=== PATIENT | female | born 1960 | race Caucasian/White ===

== ENCOUNTER 2022-12-31 20:26 | Emergency (ER) | payer BC, SELFPAY ==
[2022-12-31 20:27] VITALS: BP 130/79; PULSE 85; RESP 18; TEMP 36.5; O2SAT 99; BMI 18.1
[2022-12-31 20:29] VITALS: BP 115/88; O2SAT 98
[2022-12-31 20:30] VITALS: O2SAT 98
[2022-12-31 20:31] VITALS: BP 130/79; O2SAT 98
--- NOTE | 2022-12-31 20:38 | ED.SEIZURE1 ---
HPI - Seizure General Chief Complaint: Seizure Stated Complaint: Seizure Time Seen by Provider: 12/31/22 20:38 Source: patient Mode of arrival: ambulance Limitations: no limitations History of Present Illness HPI Narrative: patient reportedly had seizure tonight. Per Squad she had 2-3 episodes of seizure like activity that resolved without post ictal state. No history of seizure. Patient states she is able to recall making soup and sitting at the table. Describes feeling warm and getting up to go to the door and waking up on the ground. No known history and no complaint of pain. States she has polycystic kidney disease and is in renal failure. she has no complaint of pain or headache MD complaint: Reports possible seizure Related Data Home Medications Medication Instructions Recorded Confirmed No Known Home Medications 12/31/22 12/31/22 Allergies Allergy/AdvReac Type Severity Reaction Status Date / Time No Known Drug Allergies Allergy Verified 12/31/22 20:33 Review of Systems ROS Status of ROS 10 or more systems reviewed and unremarkable except as noted in history and below Exam Constitutional Vital Signs, click to edit/add: Last Vital Signs Temp 97.7 F 12/31/22 20:27 Pulse 85 12/31/22 20:27 Resp 18 12/31/22 20:27 BP 111/81 12/31/22 21:00 Pulse Ox 99 12/31/22 21:31 O2 Del Method Room Air 12/31/22 20:27 Common normals: no apparent distress, average body habitus, oriented x3, no limitations and healthy appearing HENMT Common normals: normocephalic and head/scalp atraumatic Eye Common normals: PERRL, EOMs intact bilaterally and conjunctivae normal Respiratory Common normals: normal respiratory effort, no retractions, no use of accessory muscles and clear to auscultation bilaterally Effort & inspection: able to speak in complete sentences and symmetric chest movement Cardio Common normals: regular rate, regular rhythm, S1 normal heart sound and S2 normal heart sound GI Common normals: Normal to inspection, nondistended, normoactive bowel sounds present and soft to palpation Other: palpable mass LLQ(patient states it is her polycystic kidney) Back & Pelvis Common normals: no CVA tenderness, thoracic and lumbar spine normal to inspection, no thoracic nor lumbar tenderness and thoraco-lumbar ROM normal Extremity Common normals: normal to inspection, full ROM and normal capillary refill Neuro Common normals: oriented x3, CN's II-XII intact bilaterally, moves all extremities, no focal motor deficits and no sensory deficits noted Psych Appearance: grossly normal Course Vital Signs Vital signs: Vital Signs Temperature 97.7 F 12/31/22 20:27 Pulse Rate 85 12/31/22 20:27 Respiratory Rate 18 12/31/22 20:27 Blood Pressure 130/79 12/31/22 20:27 Pulse Oximetry 99 12/31/22 20:27 Oxygen Delivery Method Room Air 12/31/22 20:27 Temperature 97.7 F 12/31/22 20:27 Pulse Rate 85 12/31/22 20:27 Respiratory Rate 18 12/31/22 20:27 Blood Pressure 111/81 12/31/22 21:00 Pulse Oximetry 99 12/31/22 21:31 Oxygen Delivery Method Room Air 12/31/22 20:27 MDM - Seizure MDM Narrative Medical decision making narrative: patient with several short lasting seizures at home. Her friend came to the ED later and was a witness. States the patient was not hurt when she went to the floor because they lowered her to the floor. she did have short lasting tonic clonic activity and was also incontinent of urine. At least 3 separate episodes of short lasting seizure. workup demonstrates renal failure of which the patient is aware and she is also hypocalcemic. Discussed with Neurology at [facility] Dr Kidd and he recommended hospitalization for her seizures given her severe systemic illness. Discussed hospitalization with the patient and her friend and the fact the patient cannot operate a motor vehicle after the seizures. She is adamant she does not want to be hospitalized and signed out AMA Lab Data Labs: Lab Results 12/31/22 12/31/22 Range/Units 20:45 22:54 WBC 8.6 (4.0-11.0) 10^3/uL RBC 3.90 L (4.20-5.40) 10^6/uL Hgb 11.9 L (12.0-16.0) g/dL Hct 35.2 L (36.0-48.0) % MCV 90.3 (81.0-99.0) fL MCH 30.5 (26.7-34.0) pg MCHC 33.8 (29.9-35.2) g/dL RDW 12.0 (11.0-15.0) % Plt Count 294 (150-450) 10^3/uL MPV 10.5 (9.5-13.5) fL Neut % (Auto) 66.0 (43.0-75.0) % Lymph % (Auto) 21.8 (20.5-60.0) % [place] % (Auto) 8.9 (1.7-12.0) % Eos % (Auto) 2.1 (0.9-7.0) % Baso % (Auto) 0.7 (0.2-2.0) % Neut # (Auto) 5.7 (1.4-6.5) 10^3/uL Lymph # (Auto) 1.9 (1.2-3.8) 10^3/uL [place] # (Auto) 0.8 (0.3-0.8) 10^3/uL Eos # (Auto) 0.2 (0.0-0.7) 10^3/uL Baso # (Auto) 0.1 (0.0-0.1) 10^3/uL Abs Immat Gran (auto) 0.04 H (0.00-0.03) 10^3/uL Imm/Tot Granulo (auto) 0.5 (0.0-0.5) % Sodium 136 (136-145) mmol/L Potassium 3.5 (3.5-5.1) mmol/L Chloride 90 L (98-107) mmol/L Carbon Dioxide 28.4 (21.0-32.0) mmol/L Anion Gap 21.1 BUN 150.0 H* (7.0-18.0) mg/dL Creatinine 6.97 H* (0.55-1.02) mg/dL Est GFR ( Amer) 7 L (>=60) Est GFR (Non-Af Amer) 6 L (>=60) BUN/Creatinine Ratio 21.5 Glucose 128 H (74-106) mg/dL Calcium 6.7 L (8.5-10.1) mg/dL Total Bilirubin 0.3 (0.2-1.0) mg/dL Direct Bilirubin 0.1 (0.0-0.2) mg/dL AST 12 L (15-37) U/L ALT 26 (14-59) U/L Alkaline Phosphatase 104 (46-116) U/L Troponin I High Sens 9.4 (4.0-51.3) pg/mL Total Protein 7.7 (6.4-8.2) g/dL Albumin 3.9 (3.4-5.0) g/dL Globulin 3.8 g/dL Albumin/Globulin Ratio 1.0 Urine Color Yellow (YELLOW) Urine Clarity Clear (CLEAR) Urine pH 6.5 (5.0-9.0) Ur Specific [place] 1.020 (1.005-1.025) Urine Protein 100 A (NEG/TRACE) mg/dL Urine Glucose (UA) Negative (NEGATIVE) mg/dL Urine Ketones Negative (NEGATIVE) mg/dL Urine Occult Blood Large A (NEGATIVE) Urine Nitrite Negative (NEGATIVE) Urine Bilirubin Negative (NEGATIVE) Urine Urobilinogen 0.2 (0.2-1.0) EU/dL Ur Leukocyte Esterase Large A (NEGATIVE) Urine RBC 2-5 A (0-2) #/HPF Urine WBC 10-20 A (NONE SEEN) #/HPF Ur Squamous Epith Cells Moderate A (NONE/RARE) #/LPF Urine Crystals None seen (None Seen) #/HPF Urine Bacteria Small A (NONE SEEN) #/HPF Urine Casts Seen A (NONE SEEN) #/LPF Hyaline Casts Rare Urine Mucus None seen (NONE SEEN) Discharge Plan Discharge Chief Complaint: Seizure Clinical Impression: Renal failure, New onset seizure Patient Disposition: Left Against Medical Advice Prescriptions / Home Meds: No Action No Known Home Medications Stand Alone Forms: Portal Instructions Referrals: Physician,Non-Staff, MD [Primary Care Provider] - 1 week
--- NOTE | 2022-12-31 20:43 | XR_ITS ---
The [place] [id number] Patient Name: JULY RUSSELL MRN: [id number] date: 1960 Sex: F Assigned Patient Location: ER Current Patient Location: ER Accession/Order Number: [id number] Exam Date: 12/31/2022 21:22 Report Date: 12/31/2022 21:53 At the request of: GALEN MORALES Procedure: XR chest 1V EXAM: XR chest 1V TECHNIQUE: Single AP view chest HISTORY: seizure COMPARISON: None. FINDINGS: The heart and mediastinum are unremarkable. The lung moeller are clear of any acute infiltrate, effusion or mass. No acute bony abnormality. XR/XR chest 1V IMPRESSION: No acute pulmonary disease. Electronically authenticated by: ARTURO PENA Date: 12/31/2022 21:53
--- NOTE | 2022-12-31 20:43 | ECG_ITS ---
The [facility] Test Date: 2022-12-31 Pat Name: JULY RUSSELL Department: Room: - Gender: Female Inspector Receiving: : 1960 Requested By: [id number] Order Number: [id number] Reading MD: JOSELO BARRY Measurements Intervals [place] Rate: 82 P: 71 LA: 154 QRS: 43 QRSD: 80 T: 53 QT: 398 QTc: 437 Interpretive Statements 1100 Sinus rhythm 4068 Nonspecific [place] abnormality 9130 borderline ECG No previous ECG available for comparison Electronically Signed On 01-01-2023 6:57:27 EST by JOSELO BARRY
--- NOTE | 2022-12-31 20:43 | CT_ITS ---
The [address] [address] Patient Name: JULY RUSSELL MRN: [id number] date: 1960 Sex: F Assigned Patient Location: ER Current Patient Location: [facility] Accession/Order Number: [id number] Exam Date: 12/31/2022 21:22 Report Date: 12/31/2022 22:00 At the request of: GALEN MORALES Procedure: CT head/brain wo con EXAMINATION: CT head/brain wo con HISTORY: seizure - TECHNIQUE: CT head without contrast. All CT scans at this facility use dose modulation, iterative reconstruction, and/or weight based dosing when appropriate to reduce radiation dose to as low as reasonably achievable. COMPARISON: None. RESULT: Post-operative change: None. Acute change: No evidence of an acute intracranial process. Hemorrhage: No evidence of acute intracranial hemorrhage. Mass Lesion / Mass Effect: No evidence of an intracranial mass or extraaxial fluid collection. No significant mass effect. Chronic change: Scattered patchy foci of low attenuation are present within supratentorial white matter which is a nonspecific finding but likely represents mild microvascular ischemia. Atherosclerotic calcification of the carotid siphons and vertebrobasilar arteries. Parenchyma: No significant parenchymal volume loss. Ventricles: Normal caliber and morphology. Other: The calvarium, skull base, imaged paranasal sinuses, mastoids, orbits and extracranial soft tissues are unremarkable. CT/CT head/brain wo con IMPRESSION: 1. No acute intracranial abnormality; no acute infarct, intracranial hemorrhage or extra-axial collection. 2. Chronic microvascular ischemic changes. Electronically authenticated by: ROCCO HODGES Date: 12/31/2022 22:00
[2022-12-31 21:00] VITALS: BP 111/81; O2SAT 99
[2022-12-31 21:08] LABS: Basophils Absolute Auto 0.1 10^3/uL (0.0-0.1); Basophils Percent Auto 0.7 % (0.2-2.0); Eosinophils Absolute Auto 0.2 10^3/uL (0.0-0.7); Eosinophils Percent Auto 2.1 % (0.9-7.0); Hematocrit 35.2 % (36.0-48.0); Hemoglobin 11.9 g/dL (12.0-16.0); Immature Granulocytes Abs Auto 0.04 10^3/uL (0.00-0.03); Immature Granulocytes Pct Auto 0.5 % (0.0-0.5); Lymphocytes Absolute Auto 1.9 10^3/uL (1.2-3.8); Lymphocytes Percent Auto 21.8 % (20.5-60.0); Mean Corpuscular HGB Conc 33.8 g/dL (29.9-35.2); Mean Corpuscular Hemoglobin 30.5 pg (26.7-34.0); Mean Corpuscular Volume 90.3 fL (81.0-99.0); Mean Platelet Volume 10.5 fL (9.5-13.5); Monocytes Absolute Auto 0.8 10^3/uL (0.3-0.8); Monocytes Percent Auto 8.9 % (1.7-12.0); Neutrophils Absolute Auto 5.7 10^3/uL (1.4-6.5); Platelet Count 294 10^3/uL (150-450); White Blood Count 8.6 10^3/uL (4.0-11.0)
[2022-12-31 21:31] VITALS: O2SAT 99
[2022-12-31 21:55] LABS: Anion Gap 21.1; BUN Creatinine Ratio 21.5; Calcium 6.7 mg/dL (8.5-10.1); Carbon Dioxide 28.4 mmol/L (21.0-32.0); Chloride 90 mmol/L (98-107); Estimated GFR (African America 7 (>=60); Estimated GFR (Non-African Ame 6 (>=60); Glucose 128 mg/dL (74-106); Potassium 3.5 mmol/L (3.5-5.1); Sodium 136 mmol/L (136-145); Troponin I High Sensitivity 9.4 pg/mL (4.0-51.3)
[2022-12-31 23:00] LABS: Alanine Aminotransferase 26 U/L (14-59); Albumin Level 3.9 g/dL (3.4-5.0); Alkaline Phosphatase 104 U/L (46-116); Aspartate Amino Transferase 12 U/L (15-37); Bilirubin Direct 0.1 mg/dL (0.0-0.2); Bilirubin Total 0.3 mg/dL (0.2-1.0); Globulin 3.8 g/dL; Total Protein 7.7 g/dL (6.4-8.2)
[2022-12-31 23:14] LABS: Bilirubin Urine NEGATIVE (NEGATIVE); Blood Urine LARGE (NEGATIVE); Clarity Urine CLEAR (CLEAR); Color Urine YELLOW (YELLOW); Glucose Urine UA NEGATIVE (NEGATIVE); Ketones Urine NEGATIVE (NEGATIVE); Leukocyte Esterase Urine LARGE (NEGATIVE); Nitrite Urine NEGATIVE (NEGATIVE); Protein Urine 100 mg/dL (NEG/TRACE); Urobilinogen Urine 0.2 EU/dL (0.2-1.0); pH Urine 6.5 (5.0-9.0)
[2022-12-31 23:28] LABS: Bacteria Urine SMALL #/HPF (NONE SEEN); Crystals Seen? None Seen #/HPF (None Seen); Mucus Urine NONE SEEN (NONE SEEN); Squamous Epithelial Cell Urine MODERATE #/LPF (NONE/RARE)
[2022-12-31 23:29] LABS: Cast Seen? SEEN #/LPF (NONE SEEN); Hyaline Casts Urine RARE
== END 2023-01-01 00:09 | disposition left against medical advice (07) ==
PROVIDERS: Emergency Provider Internal Medicine
DX: N19 Unspecified kidney failure (principal); R56.9 Unspecified convulsions; Z53.29 Procedure and treatment not carried out because of patient's decision for other reasons; Q61.3 Polycystic kidney, unspecified
CPT/HCPCS: 36415; 70450; 71045; 80048; 80076; 81001; 84484; 85025; 93005; 99285

== ENCOUNTER 2023-03-28 13:24 | Outpatient (REF) | payer BC, SELFPAY ==
--- OUTSIDE RECORDS SUMMARY | 2023-03-28 13:41 | XMS_ITS | CCD ---
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 Name Role Phone DAKOTA, DR DRAKE Admitting Unavailable HOUSE, DR DRAKE Attending Unavailable SEVEN SMITH Primary Care Unavailable HOUSE, DR DRAKE Consulting Unavailable Unavailable Primary Care Provider Unavailabl e DO Delvis Duncan Primary Care Provider MD Gisselle Kaur Emergency Provider [facility] Tremayne Calderon Admit Provider [phone] MD Jai Banuelos Attending Provider [phone] MD Genet Arambula Other Provider MD Tavo Bundy Other Provider MD Keaton Carrasco Other Provider [phone] MD Seven Smith Attending Provider MD Seven Smith Referring Provider PROVIDER, UNKNOWN Attending Unavailable PROVIDER, UNKNOWN Admitting Unavailable DELVIS DUNCAN Primary Care Unavailable Donal Avendaño MD Attending Unavailable Donal Avendaño MD Attending Unavailable HOUSE, DELVIS Varela Primary Care Unavailable Donal Avendaño MD Attending Unavailable DAKOTA, DELVIS Varela Primary Care Unavailable HOUSE, DELVIS Varela Primary Care Unavailable DAKOTA, DELVIS Varela Admitting Unavailable DAKOTA, DELVIS Varela Attending Unavailable Jonny Ashton Admitting Unavailable Jonny Ashton Attending Unavailable DAKOTA, DELVIS Varela Primary Care Unavailable MD Tavo Bundy Attending Provider [phone] Delvis Duncan Primary Care Unavailable Seven Smith Admitting Unavailable Seven Smith Attending Unavailable Delvis Duncan Primary Care Unavailable Bakhous, Aziz Admitting Unavailable Bakhous, Aziz Attending Unavailable [facility] Unavailable Jai Banuelos Attending Unavailable Tremayne Allison Admitting Unavailable Keaton Carrasco Consulting Unavailabl e Asaad, Imad Consulting Unavailable Bakhous, Aziz Consulting Unavailable Suzan, Seven Referring Unavailable [facility] Unavailable Suzan, Sveen Admitting Unavailable Suzan, Seven Attending Unavailable [facility] Unavailable Suzan, Seven Admitting Unavailable Suzan, Seven Attending Unavailable Allergies Allergy Classification Reported Allergen(s) Allergy Type Date of Onset Reaction(s) Facility (1 source) Ramipril Drug Allergy 11-14-2014 [facility] Repository (4 sources) Angiotensin Converting Enzyme (Patric) Inhibitors; Translations: [PATRIC Inhibitors] Allergy to substance 01-13-2023 [facility] Medications Current Medications Medication Drug Class(es) Dates Sig (Normalized) Sig (Original) 24 hr nicotine 0.875 mg/hr transdermal system (3 sources) Cholinergic Nicotinic Agonist Start: 01-16-2023 apply 1 dose transdermal route once daily Nicotine Active 1 PATCH TRANSDERML Daily January 16, 2023 12:00am Problems Problem Classification Problem Date Documented Da te Episodic/Chronic Acute and unspecified renal failure (6 sources) Acute renal failure syndrome; Translations: [Acute kidney failure, unspecified] Onset: 01-13-2023 01-13-2023 Episodic Chronic kidney disease (7 sources) End-stage renal disease; Translations: [End stage renal disease] Onset: 01-13-2023 01-14-2023 Chronic Epilepsy; convulsions (1 source) Recurrent seizure; Translations: [Epilepsy, unspecified, not intractable, without status epilepticus] 01-02-2023 Chronic Essential hypertension (6 sources) Hypertensive disorder; Translations: [Essential (primary) hypertension] Onset: 01-13-2023 01-14-2023 Chronic Genitourinary congenital anomalies (6 sources) Multiple renal cysts; Translations: [Polycystic kidney, unspecified] Onset: 01-13-2023 01-14-2023 Chronic Nausea and vomiting (12 sources) Adverse reaction to cannabis; Translations: [Nausea with vomiting, unspecified] Onset: 01-13-2023 01-15-2023 Episodic Other disorders of stomach and duodenum (4 sources) Cyclical vomiting syndrome; Translations: [Cyclical vomiting syndrome unrelated to migraine] 01-13-2023 Episodic Other disorders of stomach and duodenum (1 source) Cyclical vomiting syndrome unrelated to migraine; Translations: [Persistent vomiting] 01-13-2023 Episodic Other gastrointestinal disorders (1 source) Abdominal distension (gaseous); Translations: [Abdominal distension (gaseous)] Onset: 02-28-2023 Episodic Other non-traumatic joint disorders (4 sources) Other specified arthritis, unspecified site; Translations: [OTHER SPECIFIED ARTHRITIS UNS SITE] Onset: 03-28-2022 Chronic Substance-related disorders (1 source) Cannabis use, unspecified, uncomplicated; Translations: [Cannabis use, unspecified, uncomplicated] Onset: 01-13-2023 Episodic Unclassified (1 source) Encounter for other preprocedural examination; Translations: [Encounter for other preprocedural examination] Onset: 03-06-2023 Unclassified (1 source) Cyclical vomiting syndrome unrelated to migraine; Translations: [Cyclical vomiting syndrome unrelated to migraine] Onset: 01-13-2023 Urinary tract infections (6 sources) Urinary tract infectious disease; Translations: [Urinary tract infection, site not specified] Onset: 01-13-2023 01-13-2023 Episodic Results Test Name Value Interpretation Reference Range Facility US map hemodial access BILon 03-06-2023 map hemodial access [facility] [address] Ultrasound Report Signed Patient: Ros Russell MR#: [id number] 6 : 1960 Acct:[id number] Age/Sex: 62 / F ADM Date: 03/06/23 Loc: Room: Type: [facility] Attending Dr: Tavo Bundy MD Ordering Provider: Tavo Bundy MD Date of Service: 03/06/23 US/US map hemodial access VINICIUS: N18.4 Copies to: Tavo Bundy MD Bilateral upper extremity vein mapping examination Indication for study: Renal failure with need for dialysis access PROCEDURE: B-mode imaging is used to interrogate the venous and arterial anatomy of both upper extremities. In the patient's right arm the forearm basilic vein is fairly good at just under 3 mm and continues as a good quality vessel into the upper arm at 4 to 6 mm in diameter. The right forearm cephalic vein is also excellent at just under 4 mm. Antecubital vein is 5 mm and the cephalic vein continues to be a good size at 4 mm or greater into the upper arm. Axillary and subclavian veins are found be patent. The brachial artery is just under 5 mm and the radial artery is just under 2 mm. In the patient's left upper extremity the form basilic vein is smaller and the upper arm basilic vein is just under 3 mm. The left forearm cephalic vein is also 2 mm or less and the vein is just under 3 mm throughout the upper arm. There is a left-sided dialysis catheter in place. The left brachial artery is 3 mm and the left radial artery is 2 mm. US/US map hemodial access VINICIUS IMPRESSION: Right arm has favorable anatomy for creation of a Amberly fistula or an antecubital fistula. Left arm is less favorable. Impression dictated by: Erick Spicer M.D.03/06/2023 3:49 PM Dictation Location: [facility] Tech: Vanerosita Luu Transcribed By: TAE 03/06/23 1549 Dictated By: Erick Spicer MD 03/06/23 1547 Signed By: 03/06/23 1549 [facility] 02-28-2023 [facility] [place] [address] Ultrasound Report Signed Patient: Ros Russell MR#: [id number] 6 : 1960 Acct:[id number] Age/Sex: 62 / F ADM Date: 02/28/23 Loc: Room: Type: [facility] Attending Dr: Seven Smith MD Ordering Provider: Seven Smith MD Date of Service: 02/28/23 US/US liver: ABD. DISTENSION Copies to: Seven Smith MD LIMITED ABDOMINAL ULTRASOUND: CLINICAL HISTORY: Abdominal distention. Polycystic kidney disease. Evaluate for ascites. COMPARISON: None TECHNIQUE: Grayscale and color Doppler images of the right upper quadrant organs were obtained. FINDINGS: Pancreas: Not visualized. Liver: Cysts are noted within the liver consistent with the history. No solid mass or intrahepatic ductal dilatation. Hepatopedal flow seen within the portal vein. Gallbladder: Gallbladder appears contracted with mild wall thickening. Negative Saldaña's sign. Adenomyomatosis. CBD: Dilated measuring 15 mm. Visualized portions of the right kidney demonstrates cystic replacement consistent with the history. US/US liver IMPRESSION: EVIDENCE OF POLYCYSTIC KIDNEY AND LIVER DISEASE. GALLBLADDER APPEARS CONTRACTED WITH ADENOMYOMATOSIS. NO STONES ARE SEEN. CBD IS DILATED. IF BILIARY OBSTRUCTION IS OF CLINICAL CONCERN, FURTHER EVALUATION WITH MRI/MRCP WITHOUT IV CONTRAST IS RECOMMENDED.. Impression dictated by: Anthony Stanton Jr., D.OJackie02/28/2023 2:21 PM Dictation Location: [place] [address] Tech: Shyanne Houser Transcribed By: TAE 02/28/23 1421 Dictated By: Anthony Stanton Jr, DO 02/28/23 1418 Signed By: 02/28/23 1421 [facility] Miscellaneouson 02-19-2023 Miscellaneous [id number] [address] [facility] 02-06-2023 Miscellaneous [id number] 27[facility]ation/Specialist Note on 01-23-2023 Consultation/Specialist Note [id number] 5#[facility] Outside Recordson 01-21-2023 Outside Records [id number] 9[facility] Outside Recordson 01-20-2023 Outside Records [id number] 21#[facility] Basic Metabolic Panelon 11-3 Anion gap [Moles/Vol] 17.2 mmol/L High 6.0-15.0 [facility] Comment on above: Performed By: #### B MP ####[facility] [place] [address] [facility] Calcium [Mass/Vol] 9.2 mg/dL Normal 8.6-10.3 [facility] Comment on above: Performed By: #### B MP ####[place] [address] [place] [address] [facility] Chloride [Moles/Vol] 98 mmol/L Normal 98-107 [facility] Comment on above: Performed By: #### B MP ####[place] [address] [place] [id number] [facility] CO2 [Moles/Vol] 25.8 mmol/L Normal 21.0-31.0 [facility] Comment on above: Performed By: #### B MP ####[place] [address] [place] [id number] [facility] Creatinine [Mass/Vol] 4.49 mg/dL Significan t change up 0.60-1.20 [facility] Comment on above: Performed By: #### B MP ####[place] [address] [place] [id number] [facility] Creatinine Clr Calc Pharmacy 8.86 Normal [facility] Comment on above: Result Comment: PERF ORMED BY: [facility] [address] [place] [id number] PATHOLOGIST HEALTH AND WELLNESS ADVISOR JONELLE DAVIS M.D. Performed By: #### B MP ####[place] [address] [place] [id number] [facility] GFR/1.73 sq M.predicted MDRD (S/P/Bld) [Vol rate/Area] 10.505 mL/min/{1.73_m2} Normal [facility] Comment on above: Performed By: #### B MP ####[place] [id number] [facility] Glucose [Mass/Vol] 93 mg/dL Normal 70-100 [facility] Comment on above: Result Comment: [place] Glucose Reference Range is dependent on time and content of last meal. Glucose of more than 200 mg/dL in a nonstressed, ambulatory subject supports the diagnosis of Diabetes Mellitus. ADA recommended reference range Performed By: #### B MP ####[facility] [id number] [place] [address] [facility] Potassium [Moles/Vol] 4.0 mmol/L Normal 3.5-5.1 [facility] Comment on above: Performed By: #### B MP ####[facility] [place] [address] [facility] Sodium [Moles/Vol] 137 mmol/L Normal 136-145 [facility] Comment on above: Performed By: #### B MP ####[facility] [place] [address] [facility] Urea nitrogen [Mass/Vol] 55 mg/dL Significant change up 09-10 [facility] Comment on above: Performed By: #### B MP ####[facility] [place] [id number] [facility] Calcium [Mass/volume] in Ser um or PlasmaOrdered By: Tremayne Allison on 01-16-2023 Calcium [Mass/Vol] 9.2 mg/dL 8.6-10.3 [facility] Carbon dioxide, total [Moles /volume] in Serum or PlasmaOrdered By: Tremayne Allison on 01-16-2023 CO2 [Moles/Vol] 25.8 mmol/L 21.0-31.0 [facility] Chloride [Moles/volume] in S martin or PlasmaOrdered By: Tremayne Allison on 01-16-2023 Chloride [Moles/Vol] 98 mmol/L 98-107 [facility] Creatinine [Mass/volume] in Serum or PlasmaOrdered By: Tremayne Allison on 01-16-2023 Creatinine [Mass/Vol] 4.49 mg/dL 0.60-1.20 [facility] Comment on above: Delta: 5.08 on 01/15 Glucose [Mass/volume] in Ser um or PlasmaOrdered By: Tremayne Allison on 01-16-2023 Glucose [Mass/Vol] 93 mg/dL 70-100 [facility] Comment on above: ADA recommended refe rence rangeRandom Glucose Reference Range is dependent on time and content of last meal. Glucose of more than 200 mg/dL in a nonstressed, ambulatory subject supports the diagnosis of Diabetes Mellitus. No Panel InformationOrdered By: [facility] on 01-16-2023 Estimated GFR (CKD-EPI) 10.505 mL/Min [facility] Creatinine Clearance (Chem 8.86 [facility] Potassium [Moles/volume] in Serum or PlasmaOrdered By: [facility] on 01-16-2023 Potassium [Moles/Vol] 4.0 mmol/L 3.5-5.1 [facility] Serum or plasma anion gap de terminationOrdered By: [facility] on 01-16-2023 Anion gap [Moles/Vol] 17.2 mmol/L 6.0-15.0 [facility] Sodium [Moles/volume] in Ser um or PlasmaOrdered By: [facility] on 01-16-2023 Sodium [Moles/Vol] 137 mmol/L 136-145 [facility] Urea nitrogen [Mass/volume] in Serum or PlasmaOrdered By: [facility] on 01-16-2023 Urea nitrogen [Mass/Vol] 55 mg/dL - [facility] Comment on above: Delta: 103 on Basic Metabolic Panelon 12-19 Anion gap [Moles/Vol] 18.6 mmol/L High 6.0-15.0 [facility] Comment on above: Performed By: #### B MP #### [facility] [address] Calcium [Mass/Vol] 7.9 mg/dL Low 8.6-10.3 [facility] Comment on above: Performed By: #### B MP #### [facility] [address] [place] [id number] [place] Chloride [Moles/Vol] 98 mmol/L Normal 98-107 [facility] Comment on above: Performed By: #### B MP #### [facility] [address] [place] [address] [place] CO2 [Moles/Vol] 25.2 mmol/L Normal 21.0-31.0 [facility] Comment on above: Performed By: #### B MP #### [facility] [address] Creatinine [Mass/Vol] 5.08 mg/dL Significan t change up 0.60-1.20 [facility] Comment on above: Performed By: #### B MP #### [place] [address] [place] Creatinine Clr Calc Pharmacy 8.25 Normal [facility] Comment on above: Result Comment: PERF ORMED BY: [place] [address] PATHOLOGIST HEALTH AND WELLNESS ADVISOR JONELLE DAVIS M.D. Performed By: #### B MP #### [address] GFR/1.73 sq M.predicted MDRD (S/P/Bld) [Vol rate/Area] 9.059 mL/min/{1.73_m2} [facility] Comment on above: Performed By: #### B MP #### [address] Glucose [Mass/Vol] 92 mg/dL Normal 70-100 [facility] Comment on above: Result Comment: [place] Glucose Reference Range is dependent on time and content of last meal. Glucose of more than 200 mg/dL in a nonstressed, ambulatory subject supports the diagnosis of Diabetes Mellitus. ADA recommended reference range Performed By: #### B MP #### [address] Potassium [Moles/Vol] 3.8 mmol/L Normal 3.5-5.1 [facility] Comment on above: Performed By: #### B MP #### [address] Sodium [Moles/Vol] 138 mmol/L Normal 136-145 [facility] Comment on above: Performed By: #### B MP #### [place] [address] [place] Urea nitrogen [Mass/Vol] 103 mg/dL Significant change up 09-10 [facility] Comment on above: Performed By: #### B MP #### [facility] [address] [place] [id number] [facility] Calcium [Mass/volume] in Ser um or PlasmaOrdered By: Tremayne Allison on 01-15-2023 Calcium [Mass/Vol] 7.9 mg/dL 8.6-10.3 [facility] Carbon dioxide, total [Moles /volume] in Serum or PlasmaOrdered By: Tremayne [place] on 01-15-2023 CO2 [Moles/Vol] 25.2 mmol/L 21.0-31.0 [facility] Chloride [Moles/volume] in S martin or PlasmaOrdered By: Tremayne AriasAllison on 01-15-2023 Chloride [Moles/Vol] 98 mmol/L 98-107 [facility] Creatinine [Mass/volume] in Serum or PlasmaOrdered By: Tremayne AriasAllison on 01-15-2023 Creatinine [Mass/Vol] 5.08 mg/dL 0.60-1.20 [facility] Comment on above: Delta: 6.63 on 01/14 Glucose [Mass/volume] in Ser um or PlasmaOrdered By: Tremayne AriasAllison on 01-15-2023 Glucose [Mass/Vol] 92 mg/dL 70-100 [facility] Comment on above: ADA recommended refe rence rangeRandom Glucose Reference Range is dependent on time and content of last meal. Glucose of more than 200 mg/dL in a nonstressed, ambulatory subject supports the diagnosis of Diabetes Mellitus. No Panel InformationOrdered By: Tremayne AriasAllison on 01-15-2023 Estimated GFR (CKD-EPI) 9.059 mL/Min [facility] Creatinine Clearance (Chem 8.25 [facility] Potassium [Moles/volume] in Serum or PlasmaOrdered By: Tremayne Allison on 01-15-2023 Potassium [Moles/Vol] 3.8 mmol/L 3.5-5.1 [facility] Serum or plasma anion gap de terminationOrdered By: Tremayne AriasAllison on 01-15-2023 Anion gap [Moles/Vol] 18.6 mmol/L 6.0-15.0 [facility] Sodium [Moles/volume] in Ser um or PlasmaOrdered By: Tremayne Allison on 01-15-2023 Sodium [Moles/Vol] 138 mmol/L 136-145 [facility] Urea nitrogen [Mass/volume] in Serum or PlasmaOrdered By: Tremayne Allison on 01-15-2023 Urea nitrogen [Mass/Vol] 103 mg/dL 7-25 [facility] Comment on above: Delta: 174 on Basic Metabolic Panelon 12-19 Anion gap [Moles/Vol] 21.3 mmol/L High 6.0-15.0 [facility] Comment on above: Performed By: #### B MP, CBC, MG ####[facility] [id number] [place] [id number] [facility] Calcium [Mass/Vol] 6.7 mg/dL Low 8.6-10.3 [facility] Comment on above: Performed By: #### B MP, CBC, MG ####[facility] [address] [place] [address] [facility] Chloride [Moles/Vol] 94 mmol/L Low 98-107 [facility] Comment on above: Performed By: #### B MP, CBC, MG ####[facility] [address] [place] [address] [facility] CO2 [Moles/Vol] 22.3 mmol/L Normal 21.0-31.0 [facility] Comment on above: Performed By: #### B MP, CBC, MG ####[facility] [id number] [place] [address] [place] Creatinine [Mass/Vol] 6.63 mg/dL Significan t change up 0.60-1.20 [facility] Comment on above: Performed By: #### B MP, CBC, MG ####[facility] [address] [place] [address] [place] Creatinine Clr Calc Pharmacy 6.32 Normal [facility] Comment on above: Performed By: #### B MP, CBC, MG ####[facility] [id number] [place] [address] [facility] GFR/1.73 sq M.predicted MDRD (S/P/Bld) [Vol rate/Area] 6.581 mL/min/{1.73_m2} Normal [facility] Comment on above: Performed By: #### B MP, CBC, MG ####[place] [address] [place] [id number] [facility] Glucose [Mass/Vol] 80 mg/dL Normal 70-100 [facility] Comment on above: Result Comment: [facility] Glucose Reference Range is dependent on time and content of last meal. Glucose of more than 200 mg/dL in a nonstressed, ambulatory subject supports the diagnosis of Diabetes Mellitus. ADA recommended reference range Performed By: #### B MP, CBC, MG ####[place] [address] [place] [id number] [facility] Potassium [Moles/Vol] 3.6 mmol/L Normal 3.5-5.1 [facility] Comment on above: Performed By: #### B MP, CBC, MG ####[place] [id number] [facility] Sodium [Moles/Vol] 134 mmol/L Low 136-145 [facility] Comment on above: Performed By: #### B MP, CBC, MG ####[place] [address] [place] [id number] [facility] Urea nitrogen [Mass/Vol] 174 mg/dL High 7-25 [facility] Comment on above: Performed By: #### B MP, CBC, MG ####[place] [address] [place] [id number] [place] Basophils Auto (Bld) [#/Vol] Ordered By: Tremayne Allison on 01-14-2023 Basophils (Bld) [#/Vol] 0.1 10*3/uL 0.0-0.2 [facility] Basophils/100 WBC Auto (Bld) Ordered By: Tremayne Allison on 01-14-2023 Basophils/100 WBC (Bld) 0.9 % . F [facility] Complete Blood Count Auto Di ffon 01-14-2023 Basophils (Bld) [#/Vol] 0.1 10*3/uL Normal 0.0-0.2 [facility] Comment on above: Result Comment: PERF ORMED BY: [facility] [address] [place] [address] PATHOLOGIST HEALTH AND WELLNESS ADVISOR JONELLE DAVIS M.D. Performed By: #### B MP, CBC, MG ####[address] Basophils/100 WBC (Bld) 0.9 % Normal . [facility] Comment on above: Performed By: #### B MP, CBC, MG ####[address] Eosinophils (Bld) [#/Vol] 0.2 10*3/uL Normal 0.0-0.45 [facility] Comment on above: Performed By: #### B MP, CBC, MG ####[address] Eosinophils/100 WBC (Bld) 3.1 % Normal . [facility] Comment on above: Performed By: #### B MP, CBC, MG ####[address] Erythrocyte distribution width (RBC) [Ratio] 12.9 % Normal 11.9-15.3 [facility] Comment on above: Performed By: #### B MP, CBC, MG ####[address] Hematocrit (Bld) [Volume fraction] 33.1 % Low 34.0-46.4 [facility] Comment on above: Performed By: #### B MP, CBC, MG ####[address] Hemoglobin (Bld) [Mass/Vol] 11.4 g/dL Low 11.8-15.4 [facility] Comment on above: Performed By: #### B MP, CBC, MG ####[address] [place] [address] [place] Lymphocytes (Bld) [#/Vol] 1.0 10*3/uL Normal 1.00-4.8 [facility] Comment on above: Performed By: #### B MP, CBC, MG ####[address] Lymphocytes/100 WBC (Bld) 17.4 % Normal . [facility] Comment on above: Performed By: #### B MP, CBC, MG ####[address] MCH (RBC) [Entitic mass] 30.8 pg Normal 24.7-34.3 [facility] Comment on above: Performed By: #### B MP, CBC, MG ####[address] MCV (RBC) [Entitic vol] 89.0 fL Normal 80-100 [facility] Comment on above: Performed By: #### B MP, CBC, MG ####[address] Mean Corpuscular HGB Conc 34.6 g/dL Normal 32.0-35.0 [facility] Comment on above: Performed By: #### B MP, CBC, MG ####[address] Monocytes (Bld) [#/Vol] 0.5 10*3/uL Normal 0.0-0.8 [facility] Comment on above: Performed By: #### B MP, CBC, MG ####[address] Monocytes/100 WBC (Bld) 8.2 % Normal . [facility] Comment on above: Performed By: #### B MP, CBC, MG ####[address] Neutrophils (Bld) [#/Vol] 4.0 10*3/uL Normal 1.8-7.7 [facility] Comment on above: Performed By: #### B MP, CBC, MG ####[place] [id number] [facility] Neutrophils/100 WBC (Bld) 70.4 % Normal . [facility] Comment on above: Performed By: #### B MP, CBC, MG ####[place] [id number] [facility] NRBC% 0.1 /100{WBC} Normal 0-0.5 [facility] Comment on above: Performed By: #### B MP, CBC, MG ####[place] [id number] [facility] Platelet mean volume (Bld) [Entitic vol] 8.9 fL Normal 6.3-10.7 [facility] Comment on above: Performed By: #### B MP, CBC, MG ####[place] [id number] [facility] Platelets (Bld) [#/Vol] 247 10*3/uL Normal 150-450 [facility] Comment on above: Performed By: #### B MP, CBC, MG ####[place] [id number] [facility] RBC (Bld) [#/Vol] 3.72 10*6/uL Normal 3.60-5.00 [facility] Comment on above: Performed By: #### B MP, CBC, MG ####[place] [id number] [facility] WBC (Bld) [#/Vol] 5.6 10*3/uL Normal 3.8-11.6 [facility] Comment on above: Performed By: #### B MP, CBC, MG ####[address] Eosinophils Auto (Bld) [#/Vo l]Ordered By: Tremayne Allison on 01-14-2023 Eosinophils (Bld) [#/Vol] 0.2 10*3/uL 0.0-0.45 [facility] Eosinophils/100 WBC Auto (Bl d)Ordered By: Tremayne Allison on 01-14-2023 Eosinophils/100 WBC (Bld) 3.1 % . [facility] Erythrocyte distribution wid th Auto (RBC) [Ratio]Ordered By: Trmeayne Allison on 01-14-2023 Erythrocyte distribution width (RBC) [Ratio] 12.9 % 11.9-15.3 [facility] Hematocrit Auto (Bld) [Volum e fraction]Ordered By: Tremayne [place] on 01-14-2023 Hematocrit (Bld) [Volume fraction] 33.1 % 34.0-46.4 [facility] Hemoglobin [Mass/volume] in BloodOrdered By: Tremayne [place] on 01-14-2023 Hemoglobin (Bld) [Mass/Vol] 11.4 g/dL 11.8-15.4 [facility] Hepatitis Acute Panelon 12-19 HBsAg Screen Negative Normal Negative [facility] Comment on above: Order Comment: Comme nt Drawn in Dialysis Performed By: #### H BCAB, HBSAB, HEPACUTE #### [facility] , Hepatitis A Antibody IgM Negative Normal Negative [facility] Comment on above: Order Comment: Comme nt Drawn in Dialysis Performed By: #### H BCAB, HBSAB, HEPACUTE #### [facility] , Hepatitis B Core Antibody IgM Negative Normal Negative [facility] Comment on above: Order Comment: Comme nt Drawn in Dialysis Performed By: #### H BCAB, HBSAB, HEPACUTE #### [facility] , Hepatitis C Virus Antibody Non-Reactive Normal Non Reactive [facility] Comment on above: Order Comment: Comme nt Drawn in Dialysis Performed By: #### H BCAB, HBSAB, HEPACUTE #### [facility] , Interpretation Hepatitis C Normal . [facility] Comment on above: Order Comment: Comme nt Drawn in Dialysis Result Comment: Not infected with HCV unless early or acute infection is suspected (which may be delayed in an immunocompromised individual), or other evidence exists to indicate HCV infection. Performed By: #### H BCAB, HBSAB, HEPACUTE #### [facility] , Hepatitis B Core Antibodyon 01-14-2023 Hepatitis B Core Antibody Negative Normal Negative [facility] Comment on above: Order Comment: Comme nt Drawn in Dialysis Result Comment: Perf ormed at: CB - [facility] [address] [id number] [employer]: Jairon Swann PhD, Phone: [phone] PERFORMED BY: [facility] [place] [address] PATHOLOGIST HEALTH AND WELLNESS ADVISOR JONELLE DAVIS M.D. Performed By: #### H BCAB, HBSAB, HEPACUTE #### [facility] , Hepatitis B Surface Antibody on 01-14-2023 Hepatitis B Surface Antibody Non-Reactive Normal . [facility] Comment on above: Order Comment: Comme nt Drawn in Dialysis Result Comment: Non Reactive: Inconsistent with immunity, less than 10 mIU/mL Reactive: Consistent with immunity, greater than 9.9 mIU/mL Performed By: #### H BCAB, HBSAB, HEPACUTE #### [facility] , Hepatitis B virus surface Ag [Presence] in Serum or Plasma by ImmunoassayOrdered By: Tavo Bundy on 01-14-2023 HBV surface Ag IA Ql Negative Negative [facility] Hepatitis C virus IgG Ab [Pr esence] in Serum or Plasma by ImmunoassayOrdered By: Tavo Bundy on 01-14-2023 HCV IgG IA Ql Non-Reactive Non Reactive [facility] Hepatitis C virus RNA [Units /volume] (viral load) in Serum or Plasma by LEANNE with probOrdered By: Tavo Bundy on 01-14-2023 HCV RNA LEANNE+probe Qn N/A [facility] Hepatitis C virus RNA [log u nits/volume] (viral load) in Serum or Plasma by LEANNE withOrdered By: Tavo Bundy on 01-14-2023 HCV RNA LEANNE+probe [Log units/Vol] N/A [facility] Leukocytes [#/volume] correc doreen for nucleated erythrocytes in Blood by Automated counOrdered By: Tremayne Allison on 01-14-2023 WBC corrected for nucl RBC Auto (Bld) [#/Vol] 5.6 10*3/uL 3.8-11.6 [facility] Lymphocytes Auto (Bld) [#/Vo l]Ordered By: [facility] on 01-14-2023 Lymphocytes (Bld) [#/Vol] 1.0 10*3/uL 1.00-4.8 [facility] Lymphocytes/100 WBC Auto (Bl d)Ordered By: [facility] on 01-14-2023 Lymphocytes/100 WBC (Bld) 17.4 % . [facility] MCH Auto (RBC) [Entitic mass ]Ordered By: [facility] on 01-14-2023 MCH (RBC) [Entitic mass] 30.8 pg 24.7-34.3 [facility] MCHC Auto (RBC) [Mass/Vol]Or dered By: [facility] on 01-14-2023 MCHC (RBC) [Mass/Vol] 34.6 g/dL 32.0-35.0 [facility] MCV Auto (RBC) [Entitic vol] Ordered By: [facility] on 01-14-2023 MCV (RBC) [Entitic vol] 89.0 fL 80-100 [facility] Magnesiumon 01-14-2023 Magnesium [Mass/Vol] 1.9 mg/dL Normal 1.9-2.7 [facility] Comment on above: Result Comment: PERF ORMED BY: [facility] [address] [facility] [place] [address] PATHOLOGIST HEALTH AND WELLNESS ADVISOR JONELLE DAVIS M.D. Performed By: #### B MP, CBC, MG ####[facility] [id number] [place] [address] [facility] Magnesium [Mass/volume] in S martin or PlasmaOrdered By: [facility] on 01-14-2023 Magnesium [Mass/Vol] 1.9 mg/dL 1.9-2.7 [facility] Miscellaneouson 01-14-2023 Miscellaneous [id number] Normal [facility] Monocytes Auto (Bld) [#/Vol] Ordered By: [facility] on 11-28-2023 Monocytes (Bld) [#/Vol] 0.5 10*3/uL 0.0-0.8 [facility] Monocytes/100 WBC Auto (Bld) Ordered By: Tremayne [place] on 01-14-2023 Monocytes/100 WBC (Bld) 8.2 % . [facility] Neutrophils Auto (Bld) [#/Vo l]Ordered By: [facility] on 01-14-2023 Neutrophils (Bld) [#/Vol] 4.0 10*3/uL 1.8-7.7 [facility] Neutrophils/100 WBC Auto (Bl d)Ordered By: [facility] on 01-14-2023 Neutrophils/100 WBC (Bld) 70.4 % . [facility] No Panel InformationOrdered By: Tavo Bundy on 01-14-2023 Hepatitis A IgM Antibody Negative Negative [facility] Hepatitis B Core IgM Antibody Negative Negative [facility] Hepatitis B Core Total Antibody Negative Negative [facility] Comment on above: Performed at: [address] Director: Jairon Swann PhD, Phone: [phone] Hepatitis C Interpretation See comment . [facility] Comment on above: Not infected with HC V unless early or acute infection issuspected (which may be delayed in an immunocompromisedindividual), or other evidence exists to indicate HCVinfection. Nucleated erythrocytes [Pres ence] in Blood by Automated countOrdered By: Tremayne [place] on 01-14-2023 Nucleated RBC Auto Ql (Bld) 0.1 /100{WBC} 0-0.5 [facility] Platelet mean volume Auto (B ld) [Entitic vol]Ordered By: [facility] on 01-14-2023 Platelet mean volume (Bld) [Entitic vol] 8.9 fL 6.3-10.7 [facility] Platelets Auto (Bld) [#/Vol] Ordered By: Tremayne [place] on 01-14-2023 Platelets (Bld) [#/Vol] 247 10*3/uL 150-450 [facility] RBC Auto (Bld) [#/Vol]Ordere d By: Tremayne [place] on 01-14-2023 RBC (Bld) [#/Vol] 3.72 10*6/uL 3.60-5.00 [facility] Serum hepatitis B virus surf patric antibody detectionOrdered By: Tavo Bundy on 01-14-2023 HBV surface Ab Ql (S) Non-Reactive . [facility] Comment on above: Non Reactive: Incons istent with immunity, less than 10 mIU/mL Reactive: Consistent with immunity, greater than 9.9 mIU/mL WBC Auto (Bld) [#/Vol]Ordere d By: Tremayne Allison on 01-14-2023 WBC (Bld) [#/Vol] 5.6 10*3/uL 3.8-11.6 [facility] Alanine aminotransferase [En zymatic activity/volume] in Serum or PlasmaOrdered By: PROVIDER TEMP on 01-13-2023 ALT [Catalytic activity/Vol] 12 U/L 7-52 [facility] Albumin [Mass/volume] in Ser um or Plasma by Bromocresol green (BCG) dye binding methoOrdered By: PROVIDER TEMP on 01-13-2023 Albumin BCG dye [Mass/Vol] 4.9 g/dL 3.5-5.7 [facility] Alkaline phosphatase [Enzyma tic activity/volume] in Serum or PlasmaOrdered By: PROVIDER TEMP on 01-13-2023 ALP [Catalytic activity/Vol] 100 U/L 34-104 [facility] Aspartate aminotransferase [ Enzymatic activity/volume] in Serum or PlasmaOrdered By: PROVIDER TEMP on 01-13-2023 AST [Catalytic activity/Vol] 12 U/L 13-39 [facility] Automated erythrocytes count in urine sediment (number/area)Ordered By: Gisselle Kaur on 01-13-2023 RBC Auto (Urine sed) [#/Area] 5-9 [HPF] 0-4 [facility] Automated leukocytes count i n urine sediment (number/area)Ordered By: Gisselle Kaur on 01-13-2023 WBC Auto (Urine sed) [#/Area] 50-100 [HPF] 0-4 [facility] Bilirubin Test strip Ql (U)O rdered By: Gisselle Kaur on 01-13-2023 Bilirubin Ql (U) Negative Negative [facility] Bilirubin.total [Mass/volume ] in Serum or PlasmaOrdered By: PROVIDER MEGGAN on 01-13-2023 Bilirubin [Mass/Vol] 0.4 mg/dL 0.3-1.[address] [facility] [address] abdomen pelvis wo conon 1 03-15-2022 CT abdomen pelvis wo con [facility] [address] [place] [address] [place] [address] CT Scan Report Signed Patient: Ros Russell MR#: [id number] 6 : 1960 Acct:[id number] Age/Sex: 62 / F ADM Date: 01/13/23 Loc: ER Room: Type: PRE ER Attending Dr: Copies to: DO MEGGAN Villarreal, PROVIDER Ordering Provider: Blaise Arguello DO Date of Service: 01/13/23 CT/CT abdomen pelvis wo con: elevated creatinine CT ABDOMEN AND PELVIS WITHOUT CONTRAST COMPARISON: None CLINICAL DATA: Elevated BUN and creatinine. Spiral images were obtained through the abdomen and pelvis without contrast. This CT exam was performed using one or more following dose reduction techniques: Automated exposure control, adjustment of the mA and/or kV according to patient size, or use of iterative reconstruction technique. Limited cuts through the lung bases show obstructive lung disease. Assessment of the intra-abdominal organs is slightly limited by the absence of contrast. There are several hepatic hypodensities suggesting cysts. The largest measures 3.6 cm in size. There are some hepatic calcifications. There is also calcification around what is thought to be the gallbladder. There are no calcified gallstones. The spleen, pancreas and adrenal glands show no obvious abnormalities within limits of paucity of fat. The kidneys are markedly enlarged measuring over 26 cm in size and extending into the pelvis. There are innumerable hyper and hypodense nodules suggesting simple and hemorrhagic cysts. Appearance is compatible with polycystic kidney disease. There are some calcifications that may be stones however renovascular disease is also possible. Assessment for hydronephrosis is also challenging. There is atherosclerotic plaque involving a slightly ectatic aorta and iliac arteries. The retroperitoneum is difficult to evaluate for adenopathy due to the enlarged kidneys and lack of in traperitoneal fat. No ascites is seen. There is no obvious small bowel dilatation. There is stool within the colon. There are suspected left-sided colonic diverticula. Degenerative changes are noted at the spine, greatest at L4-5. Images through the pelvis show no dilated small bowel. There is some colonic stool at the cecum. The left colon is underdistended. The appendix is not seen with certainty. The uterus is slightly retroverted. No bladder abnormalities are identified. No ascites is noted. CT/CT abdomen pelvis wo con IMPRESSION: HEPATIC CYSTS. ENLARGED KIDNEYS WITH MULTIPLE SUSPECTED SIMPLE AND HEMORRHAGIC CYSTS COMPATIBLE WITH POLYCYSTIC KIDNEY DISEASE. RENAL CALCIFICATIONS - STONES VERSUS RENOVASCULAR DISEASE. ATHEROSCLEROTIC PLAQUE AT THE AORTA AND ILIAC ARTERIES. NO OBVIOUS BOWEL OR URINARY TRACT OBSTRUCTION. DIVERTICULOSIS. Impression dictated by: Duyen Rosales M.D.01/13/2023 7:40 PM Dictation Location: [place] [address] Transcribed By: [facility] 01/13/231939 Dictated By: Duyen Rosales MD 01/13/231929 Signed By: 01/13/231939 [facility] Coding Summaryon 01-13-2023 Coding Summary [facility] HhcuwtatAGo0hUp+PGhl YWQ+XL3ZZJGkI88hyCUo rK9kP7JQTOgFYtkfXFMU MIfXBpEofeNaMU5yzXFl ZXJu IC8+ON7vXKXjBwahoNHj g6S4gRZ9B55srg1cEOzb xTQ2VEIdWaYtsoxuy5bm uRr0BZrgJhfrRtWj XNOjvK65AFG8bW40Pe80 uOLfsARxw9egvVo7DdNv OQIrFZD9xGjpIIkpz7Rk ODQvH36loDZbh2I2 IGNvbGxhcHNlOyBlbXB0 iD1xDQpmfriyg6oidwum Hoq1iw16bYDxb0O5eVU4 J2RiieM1FYTevTKb OdrbaFXNhV3mlsbec1ji ylugFxXpQSMyUAg2NFy2 XQKflJbaDmNgUD47UBY6 BIFuhwKyQ0EmMFNa oFzuMcK6o9U7Dz6HI9YE VsbnF1ZGHLOTOXsqkMJ+ QQ79ki14O2HdOuqzHen2 DEBhWMH3aBN9uZ8k GEGhNEtzv1J9fNT6F4Qk igVgfv6yk8ykRYXkPAoq V96trAXjv0P6IJWmyBR5 ZHBqiQliPfLkwZ35 Oyc+AFHzrSpin5QlAnji z1wnr1mhnOv0CohfQUFe ezElnTfvJPR5u0SiDp3o ZVOckRT6bQP6dF3v BdMgFxU8KVxbS814PpIi bJLbAbnoO79tY2YvjRJ+ MGQaZae3LOBzkLmsND8r I7HvTVTbimhvtSGk cFdjCQ3sSGCesejjICAj pI8sDBAeI2z1JwXeGiC3 EWrrB0QdGPFrctixIv00 aH6wObTrUtF0FZpx K7WgdpI3XLGdwLLoNVcp ODP6Z49mf8T9TJXoMDBh AVE2bYT4jV9ynLsyeyai bGVmdDsgdmVydGlj LEofZEgsN397JWOxhDnr PkNvZGluZyBEYXRlOiAg MTEvMjcvMjAyMzwvdGQ+ TUYuFYU5aIklHYUb bRTbCDejJt6laEjsjTug HN5rQVOtzjjhOFNrlR4l EGIsaIRnmOxsJX9kXWWd vmrjf000RzUsBCP5 ZBEspITxY4FkwV3hIeQe RWHjQJNbH5LucUCpWIvy K122SMriUpJ9CQRsonFy V0XpDOTtnJpsYoL7 q1S6Sd3Fa7OkyjdlE3Sy cTRnEmCjUxmaURz8M8Ar PjwvdHI+QK54FQRtYO42 MZl9BWQ8hAzlGSgt ADKkR1PcfH5pYxEnWIAp ZGRkOyc+PHRhYmxlIHdp ZHRoPScxMDAlJyBzdHls TY2gUi6nPPDrTZJs vUgvrFFvVmPww8fxCHLb JHuhQS7pyOxxT5IjeZG8 UUMwk0d7Gy35T78cO0Td dXA+ENSerIY9vPT6 nV3dLwUxAkT7BXsbX639 GhZyvQIeEecrl4est6hw mEz1NzF6VHGeruRalFmy CTL9b8UnGe29U31d IHdpZHRoPSIxNSUiIHZh bStjdk9rfO9sEz3+PGNv tXD6cHC1rL7jMmReFfR9 ESufQ429GxDkjKDb Mcksw1iup9trgCc3KqEu QWPsuxJoqKnaPNK6i9Ns Wa71Z6LuvBucn2LhZdx1 kk81cGKkj0Y5vPC5 V3CgOPKetcnunTHmeJqu MR8zZDGkiuujPMAvsV5e QGLgL6x8ZeFnSpK3ZTjm K1SzbiT5FVTppEYf XXBxeXFOwP8deegew5ne dsynQwGkHWPoOCz9TGb4 QVIkrAtfOqYoWKM6FvN6 HBV6jLWvaO7etCvt hukfpV7xDya+MVC1pKPz zBSTQD0fFnspkCP+PHRk GGV4zTjtJGveUFQlaT5n ZEGqK1m4NwDqYxQ0 EJtwZ8AfkdU5NQUqbBVx YINalHHQcA3zaauqi1bk wnzjSdGyKQVuLIu3FXm5 LWFsaWduOiBsZWZ0 RvX4BST3jRCbiH9fiXfb pqexgU4oFei+QmlydGgg QKF8KCk8Y7NzZkz2DZAf dMziKA0slAVlKTcn Pb3vdLeaiRmgKG9rCWAo croyi964RgOte2umCEXg qYAwJJohIBS5N38xn7X7 OVFkJHWbZYV0lOH8 aJ1knBbmlthwgTGobFrc srEmfBinMUmnPWllC258 YRVomSfnPnKlNQb1B9Qn Rhq1HUSswXauOD3t fGUmJOmhId3xsEjvdOpa PP9qMNTcjzkeq967JlHw s3rqZUUmjMNeCRehHNY3 E54pd2J3UNYiIJDh TAG1lZZ2eY3iqTmjqbtv bGVmdDsgdmVydGljYWwt XRcsR870HOLmnCinJkOa xOs0O2GqHiy6SYWu cUpcPX7wkSKgKIhqNa6j nOqqtRrcSE0aYPFshgtm k259UlYbt1dzMHWkmCIh TMxwQUD2E32jr6M8 HGYnODWcXHR0rTS4dW9j bGlnbjogbGVmdDsgdmVy tPzuLRubQWkxQ471FUDo cDsnPlBhdGllbnQg RLggTIo0D5WeAjvovOL+ NA63FBScOL06qSLpuDSx z3zcoKz5CtUdZTJjIML4 dTdtTMpdx7OiTNMn G99adPXjt6I0ZBXahShl iYUfUyAvwQR3sK0yWJat leljn8cidgdsKescl0jm jv94rW54Z66mNQlt ZHRoPSIzMCUiIHZhbGln yk8doN9pQm1+PGNvbCB3 vAF3wN0jZTPkYyQ7HAva Y972XxKonPScFtje k9xww6pbmRk2HdT5CFNm plHcsBqwHOH6a1JbSf84 U55cPHmiJRTlBNGwYOMi RDFhvWqukq4zlK3o Ii8+DIQjmDQ8oNA1mP4v QuZvNaE0QFevB723PoRj fSKlVmlaD10iC2JtwXV+ PXLuSgj5CZFbiBdv FG8rdMTkGTgdLb8vDDU0 WjDjDfBoHVgiK7TyEXXl txmwyvqzvNG9YGKrEFXe tX69Ke4ohCblSLIc hBMAwS7pksdhf7tkaqoz VkXcGMXkWTg9KAi9RQSo hFwbMbItXQY2HdQ5NKM8 ePEmqJ3dtWhpufks aT7tG8KiJCTdlgglKc10 lZ0sQqVzWlU6AOqtTjz+ G5aXS3erTBbLWWiONTK5 K6KtCmx4BUQoiTyj BQ2lvQOrFYrdNt9lkWqw jFghKT7mCMHpsfveQMRk zC7fWYOltGRomCtjNS0t OJXuuhfjy071LaMn KFM1XRUvzUDcK9RhdM3o FbShPSStJKOaE2TwzARv LYesT327NAivNkF5HZUh ssFyC2DwSGBqqIie RlB9p8T9Uo9qSt7nZS9b FPKzZW81HK30tWBxk3T8 oAN1K1NgTLYxxukcooto bSG1WLQkAXGlkW25 uKVpSWciLw5dt8Y8z923 YSSeKDNqcQ12Lc9siKyn VHSwiNBAaQ7mnjtsv8if cjogIzAwMDAwMDt0 WEb4QJGlpFdiXtRtXLA7 ZsD1YJN1fNHjfU8pxPte mshbnG0jUxj+NjIgWWVh gnA9G5YxAap1YOPs fJkqKZ5hxCJgKIhiFa5j eAggvDaaXE0aCHKzfsrr BZHwfU0jDKCwoBUoiZpl GG2iXGQitomjq349 WxXvRVD0BPXsuIXbK2Rp hT4qEcBvQXOkSEHeT6Jf xKSeVZliT126ZVbxHlK5 JFQjzjBpW3CyFDVm gJqkZuJ0l7M8Ng3ILJ3X PIP4S3SoOus0JAAigSxt TE0vhIDsIHnuBz7pxAvq jQwfEN1cEHMrmwkg AOFzgC3gGPJnoXWvvAhe BK9iBJKfqbhdj325KlBh CZI9LIFitZLjL3LleK2b TpKlMJQfOMPkA4Cf eGWsLVvbD336IIlwHhL1 VLAzjfBtB6NhHADvhXth VcD0g6J9Pt6OQJdrmDK+ DA81fz81E4WwAglo Okg4LNEaGBR2jQY9wQ4o UPFaYCutl1V8bDB3X9Qe qxZtpc9cn6rpKHNmCUnc B85xgLOti4V0EZYh mFR2RYUqaZloQwHvhJ70 Oyc+OSLryNgvt6RyOlxq x3gzy8tvbUy7JjNqSPDl mzKcnDuiPLK8f1Wq Fb16H48yJBhyZBLcSMIl SGZcGSXkeQxnua5psE9v Ii8+VCGxsWN3cAT8jI9q FeEfOiW4LCgxK539 GzRojPGvXqiad3ihw5oz gWo2AgDkSDDskaVqoPfl MCG0d0CyFp11X1LjqDdt l9NnSdx2jo02qHTq e3M5wAJ9R1XxPJElmkbp fNVluFzlVO4iUIVtnzty GUEzpM3yZYQzH6u6MnIw CgO6WCmkQ8EzorZ6 DWZozKVsHNOykCHYkM2d rnvsw5nycddxZhDfQJNj PKv8XHw6LRLoiHnbJtNy OBZ5YmQ6GHW5rUKf jE6ihJfslasquQ4lCns+ ZZd0o3wmhKEvYB3zeMX1 DE97YU48iGCpz2V1bPI0 U2BjSLEzzoxzmsso ySE7XMLbOHAncM65Ny6n nLvuNx2mPUKmZWH2XIVk mIIhI0NvhY4wFyUoGGTn JKChP8PmnJNnXQgz W722ABakXnV6YXIyutYt O0BnLWQebAyzGwU4y9T7 Hd7MUA35LW71GS55zFJe b5U7oVM2C8BwOJNu lbpabgfgdQJ1ZDAtORIl oC98So7izBlcTe0tXOMj IYB0TJEtgNCxU5BkiM8a TyLcQKSmVHPtY6Di qSKySZsyH899QMajYoS5 TTSyqsMqM5AzEXMtzKmj ZsA9h0P4Bv9YFn74TA23 PK80eUPfk9L5gEC7 R8NvBXFssuvyymwvpOM6 JFNoWDZuoJ87Cl1dbDxh Dz2xXZZcCYH5AZIgwAYm U4ZmrL9cGkLgOODw BNMnX0GyzZChBVimR792 QTasOwB0PQEvdvNoW1Nf KLYgjHohQjK1u3Q9Uo0O IRppydb1H9DbUsyo dHI+MO25EGAeNV61xWSk wXEpo3tqhMl2KjQjHBQa VHS9uSegWLcan9TmDUCx A51aoFWfs8F3QSPt bGx (more content not included)... Normal [facility] Color Auto (U)Ordered By: Sarah Kaur on 01-13-2023 Color (U) Yellow Yellow [facility] Complete Blood Count Auto Di ffon 01-13-2023 Basophils (Bld) [#/Vol] 0.0 10*3/uL Normal 0.0-0.2 [facility] Comment on above: Result Comment: PERF ORMED BY: [facility] [address] [place] [address] PATHOLOGIST HEALTH AND WELLNESS ADVISOR JONELLE DAVIS M.D. Performed By: #### C MP, CBC ####[facility] [id number] [place] [address] [facility] Basophils/100 WBC (Bld) 0.5 % Normal . [facility] Comment on above: Performed By: #### C MP, CBC ####[address] [address] [facility] Eosinophils (Bld) [#/Vol] 0.2 10*3/uL Normal 0.0-0.45 [facility] Comment on above: Performed By: #### C MP, CBC ####[address] [address] [facility] Eosinophils/100 WBC (Bld) 1.7 % Normal . [facility] Comment on above: Performed By: #### C MP, CBC ####[place] [id number] [facility] Erythrocyte distribution width (RBC) [Ratio] 12.9 % Normal 11.9-15.3 [facility] Comment on above: Performed By: #### C MP, CBC ####[place] [id number] [facility] Hematocrit (Bld) [Volume fraction] 39.1 % Normal 34.0-46.4 [facility] Comment on above: Performed By: #### C MP, CBC ####[place] [id number] [facility] Hemoglobin (Bld) [Mass/Vol] 13.7 g/dL Normal 11.8-15.4 [facility] Comment on above: Performed By: #### C MP, CBC ####[place] [id number] [facility] Lymphocytes (Bld) [#/Vol] 1.1 10*3/uL Normal 1.00-4.8 [facility] Comment on above: Performed By: #### C MP, CBC ####[place] [id number] [facility] Lymphocytes/100 WBC (Bld) 12.5 % Normal . [facility] Comment on above: Performed By: #### C MP, CBC ####[place] [id number] [facility] MCH (RBC) [Entitic mass] 31.0 pg Normal 24.7-34.3 [facility] Comment on above: Performed By: #### C MP, CBC ####[address] [address] [facility] MCV (RBC) [Entitic vol] 88.7 fL Normal 80-100 [facility] Comment on above: Performed By: #### C MP, CBC ####[address] [address] [facility] Mean Corpuscular HGB Conc 34.9 g/dL Normal 32.0-35.0 [facility] Comment on above: Performed By: #### C MP, CBC ####[address] [address] [facility] Monocytes (Bld) [#/Vol] 0.7 10*3/uL Normal 0.0-0.8 [facility] Comment on above: Performed By: #### C MP, CBC ####[address] [address] [facility] Monocytes/100 WBC (Bld) 14.17 % Normal 0.00-20.00 [facility] Comment on above: Performed By: #### C MP, CBC ####[place] [id number] [facility] Monocytes/100 WBC (Bld) 7.2 % Normal . [facility] Comment on above: Performed By: #### C MP, CBC ####[address] [address] [facility] Neutrophils (Bld) [#/Vol] 7.2 10*3/uL Normal 1.8-7.7 [facility] Comment on above: Performed By: #### C MP, CBC ####[address] [address] [facility] Neutrophils/100 WBC (Bld) 78.1 % Normal . [facility] Comment on above: Performed By: #### C MP, CBC ####[address] [address] [facility] NRBC% 0.0 /100{WBC} Normal 0-0.5 [facility] Comment on above: Performed By: #### C MP, CBC ####[place] [id number] [place] [address] [facility] Platelet mean volume (Bld) [Entitic vol] 8.7 fL Normal 6.3-10.7 [facility] Comment on above: Performed By: #### C MP, CBC ####[address] [address] [facility] Platelets (Bld) [#/Vol] 308 10*3/uL Normal 150-450 [facility] Comment on above: Performed By: #### C MP, CBC ####[address] [address] [facility] RBC (Bld) [#/Vol] 4.41 10*6/uL Normal 3.60-5.00 [facility] Comment on above: Performed By: #### C MP, CBC ####[address] [address] [facility] WBC (Bld) [#/Vol] 9.2 10*3/uL Normal 3.8-11.6 [facility] Comment on above: Performed By: #### C MP, CBC ####[address] [address] [facility] Comprehensive Metabolic Pane atr 01-13-2023 Albumin [Mass/Vol] 4.9 g/dL Normal 3.5-5.7 [facility] Comment on above: Performed By: #### C MP, CBC ####[place] [id number] [facility] Albumin/Globulin [Mass ratio] 1.6 {ratio} Normal [facility] Comment on above: Performed By: #### C MP, CBC ####[place] [id number] [facility] ALP [Catalytic activity/Vol] 100 U/L Normal 34-104 [facility] Comment on above: Result Comment: PERF ORMED BY: [facility] [address] [place] [id number] PATHOLOGIST HE[employer]LL[employer] ADVISOR JONELLE DAVIS M.D. Performed By: #### C MP, CBC ####[facility] [id number] [place] [address] [facility] ALT [Catalytic activity/Vol] 12 U/L Normal 7-52 [facility] Comment on above: Performed By: #### C MP, CBC ####[facility] [place] [address] [facility] Anion gap [Moles/Vol] 25.3 mmol/L High 6.0-15.0 [facility] Comment on above: Performed By: #### C MP, CBC ####[facility] [id number] [place] [address] [facility] AST [Catalytic activity/Vol] 12 U/L Low 13-39 [facility] Comment on above: Performed By: #### C MP, CBC ####[id number] [place] [address] [facility] Bilirubin [Mass/Vol] 0.4 mg/dL Normal 0.3-1.0 [facility] Comment on above: Performed By: #### C MP, CBC ####[address] [place] [address] [facility] Calcium [Mass/Vol] 7.3 mg/dL Low 8.6-10.3 [facility] Comment on above: Performed By: #### C MP, CBC ####[address] [place] [address] [facility] Chloride [Moles/Vol] 86 mmol/L Low 98-107 [facility] Comment on above: Performed By: #### C MP, CBC ####[address] [address] [facility] CO2 [Moles/Vol] 23.3 mmol/L Normal 21.0-31.0 [facility] Comment on above: Performed By: #### C MP, CBC ####[facility] [place] [address] [facility] Creatinine [Mass/Vol] 7.63 mg/dL High 0.60-1.20 [facility] Comment on above: Performed By: #### C MP, CBC ####[place] [id number] [facility] GFR/1.73 sq M.predicted MDRD (S/P/Bld) [Vol rate/Area] 5.561 mL/min/{1.73_m2} Normal [facility] Comment on above: Performed By: #### C MP, CBC ####[address] [address] [facility] Globulin (S) [Mass/Vol] 3.1 g/dL Normal F [facility] Comment on above: Performed By: #### C MP, CBC ####[address] [id number] [facility] Glucose [Mass/Vol] 92 mg/dL Normal 70-100 [facility] Comment on above: Result Comment: [place] Glucose Reference Range is dependent on time and content of last meal. Glucose of more than 200 mg/dL in a nonstressed, ambulatory subject supports the diagnosis of Diabetes Mellitus. ADA recommended reference range Performed By: #### C MP, CBC ####[id number] [facility] Potassium [Moles/Vol] 3.6 mmol/L Normal 3.5-5.1 [facility] Comment on above: Performed By: #### C MP, CBC ####[id number] [facility] Protein [Mass/Vol] 8.0 g/dL Normal 6.4-8.9 [facility] Comment on above: Performed By: #### C MP, CBC ####[id number] [facility] Sodium [Moles/Vol] 131 mmol/L Low 136-145 [facility] Comment on above: Performed By: #### C MP, CBC ####[id number] [facility] Urea nitrogen [Mass/Vol] 193 mg/dL High 7-25 [facility] Comment on above: Performed By: #### C MP, CBC ####[id number] [place] Dipstick and Microscopicon 1 03-15-2022 Appearance (U) Clear Normal Clear [facility] Comment on above: Order Comment: Name Collection Type:: Voided Performed By: #### A DDONUAPLUS, CUU #### [facility] [address] [place], [place] [id number] [place] Bacteria,Urine 2+ High None Seen [facility] Comment on above: Order Comment: Name Collection Type:: Voided Performed By: #### A DDONUAPLUS, CUU #### [place] [address] [place] Bilirubin,Urine Negative Normal Negative [facility] Comment on above: Order Comment: Name Collection Type:: Voided Performed By: #### A DDONUAPLUS, CUU #### [place] [address] [place] Color (U) Yellow Normal Yellow [facility] Comment on above: Order Comment: Name Collection Type:: Voided Performed By: #### A DDONUAPLUS, CUU #### [place] [address] [place] Glucose Ql (U) Normal Normal Normal [facility] Comment on above: Order Comment: Name Collection Type:: Voided Performed By: #### A DDONUAPLUS, CUU #### [place] [address] [place] Hyaline Casts,Urine None Seen Normal 0-8 [facility] Comment on above: Order Comment: Name Collection Type:: Voided Performed By: #### A DDONUAPLUS, CUU #### [facility] [address] [place], [place] [id number] [place] Ketones Ql (U) Negative Normal Negative [facility] Comment on above: Order Comment: Name Collection Type:: Voided Performed By: #### A DDONUAPLUS, CUU #### [place] [address] [place] Leukocyte esterase Test strip Ql (U) 4+ High Negative [facility] Comment on above: Order Comment: Name Collection Type:: Voided Performed By: #### A DDONUAPLUS, CUU #### [facility] [address] [place] [address] [place] Nitrite,Urine Negative Normal Negative [facility] Comment on above: Order Comment: Name Collection Type:: Voided Performed By: #### A DDONUAPLUS, CUU #### [address] Occult Blood,Urine 1+ High Negative [facility] Comment on above: Order Comment: Name Collection Type:: Voided Result Comment: PERF ORMED BY: [place] [address] PATHOLOGIST HEALTH AND WELLNESS ADVISOR JONELLE DAVIS M.D. Performed By: #### A DDONUAPLUS, CUU #### [address] pH (U) 6.5 [pH] Normal 5.0-9.0 [facility] Comment on above: Order Comment: Name Collection Type:: Voided Performed By: #### A DDONUAPLUS, CUU #### [address] Protein (U) [Mass/Vol] 100 mg/dL High Negative [facility] Comment on above: Order Comment: Name Collection Type:: Voided Performed By: #### A DDONUAPLUS, CUU #### [address] RBC,Urine 5-9 High 0-4 [facility] Comment on above: Order Comment: Name Collection Type:: Voided Performed By: #### A DDONUAPLUS, CUU #### [place] [address] [place] Specificy [place],Urine 1.011 Normal 1.001-1.030 [facility] Comment on above: Order Comment: Name Collection Type:: Voided Performed By: #### A DDONUAPLUS, CUU #### [address] Squamous Epithelial Cell,Urine None Seen Normal 0-2 [facility] Comment on above: Order Comment: Name Collection Type:: Voided Performed By: #### A DDONUAPLUS, CUU #### [facility] [address] [place] [address] Urobilinogen,Urine Normal Normal Normal [facility] Comment on above: Order Comment: Name Collection Type:: Voided Performed By: #### A DDONUAPLUS, CUU #### [address] WBC,Urine 50-100 High 0-4 [facility] Comment on above: Order Comment: Name Collection Type:: Voided Performed By: #### A DDONUAPLUS, CUU #### [address] Yeast,Urine None Seen Normal None Seen [facility] Comment on above: Order Comment: Name Collection Type:: Voided Result Comment: PERF ORMED BY: [place] [address] PATHOLOGIST HEALTH AND WELLNESS ADVISOR JONELLE DAVIS M.D. Performed By: #### A DDONUAPLUS, CUU #### [address] ECG 12 lead ECGon 01-13-2023 ECG 12 lead ECG [facility] [place] [address] [place] [address] Electrocardiograph Report Signed Patient: Ros Russell MR#: [id number] 6 : 1960 Acct:[id number] Age/Sex: 62 / F ADM Date: 01/13/23 Loc: Room: [address] [place] [address] Type: ADM IN Attending Dr: Tremayne Allison DO Ordering Provider: Gisselle Kaur MD Date of Service: 01/13/23 ECG/ECG 12 lead ECG: Recheck/Abnormal Lab/Rx Copies to: Test Reason : Blood Pressure : 139/084 mmHG Vent. Rate : 107 BPM Atrial Rate : 107 BPM P-R Int : 142 ms QRS Dur : 082 ms QT Int : 366 ms P-R-T Axes : 081 023 091 degrees QTc Int : 488 ms Sinus tachycardia Low voltage QRS Cannot rule out Anterior infarct , age undetermined Abnormal ECG No previous ECGs available Confirmed by GISSELLE KAUR MD ([id number]) on 01/14/2023 1:01:47 AM Referred By: Electronically Signed By:GISSELLE KAUR MD Transcribed By: MUS Signed By Gisselle Kaur MD 01/14/23 0101 Normal [facility] Globulin Calc (S) [Mass/Vol] Ordered By: PROVIDER TEMP on 01-13-2023 Globulin (S) [Mass/Vol] 3.1 g/dL F [facility] Ketones Auto test strip (U) [Mass/Vol]Ordered By: Gisselle Kaur on 01-13-2023 Ketones (U) [Mass/Vol] Negative Negative Fi [facility] - UrinalysisOrder ed By: Gisselle Kaur on 01-13-2023 Hyaline casts LM Ql (Urine sed) None seen [LPF] 0-8 [facility] Monocyte distribution width [Entitic volume] in Blood by AutomatedOrdered By: PROVIDER TEMP on 01-13-2023 Monocyte distribution width Auto (Bld) [Entitic vol] 14.17 % 0.00-20.00 [facility] Nitrite Test strip Ql (U)Ord ered By: Gisselle Kaur on 01-13-2023 Nitrite Ql (U) Negative Negative [facility] Protein Auto test strip (U) [Mass/Vol]Ordered By: Gisselle Kaur on 01-13-2023 Protein (U) [Mass/Vol] 100 mg/dL Negative [facility] Protein [Mass/volume] in Ser um or PlasmaOrdered By: PROVIDER TEMP on 01-13-2023 Protein [Mass/Vol] 8.0 g/dL 6.4-8.9 [facility] Serum or plasma albumin/glob ulin mass ratioOrdered By: PROVIDER TEMP on 01-13-2023 Albumin/Globulin [Mass ratio] 1.6 {ratio} [facility] Specific gravity Auto test s trip (U) [Rel density]Ordered By: Gisselle Kaur on 01-13-2023 Specific gravity (U) [Rel density] 1.011 1.001-1.030 [facility] Squamous epithelial cells de tection in urine sediment by light microscopyOrdered By: Gisselle Kaur on 01-13-2023 Epithelial cells.squamous LM Ql (Urine sed) None seen [HPF] 0-2 [facility] Urine Cultureon 01-13-2023 Bacteria identified Cx Nom (U) ORGANISM: Staphylococcus epidermidis (O:STAEPI) [place] Count >100,000 Aerobic KRISHNA Charge (PCMIC38) ----- SUSCEPTIBILITY ---- ORGANISM: O:STAEPI ANTIBIOTIC INTERPRETATION KRISHNA Ciprofloxacin S <1 Daptomycin S <0.5 Levofloxacin S <1 Linezolid S 2 Nitrofurantoin S <32 Oxacillin S <0.25 Penicillin S <0.03 Tetracycline S <4 Trimethoprim/Sulfame thoxazole S <0.5 Vancomycin S 1 S = SUSCEPTIBLE I = INTERMEDIATE R = RESISTANT BLANK = DATA NOT AVAILABLE, OR DRUG NOT ADVISABLE OR TESTED R* = RESISTANCE DUE TO EXTENDED SPECTRUM BETA-LACTAMASES ESBL = EXTENDED SPECTRUM BETA-LACTAMASE TFG = THYMIDINE-DEPENDENT STRAIN EVETTE = BETA-LACTAMASE POSITIVE IB = INDUCIBLE BETA-LACTAMASE. APPEARS IN PLACE OF 'S' WITH SPECIES KNOWN TO POSSESS INDUCIBLE BETA-LACTAMASES. POTENTIALLY THEY MAY BECOME RESISTANT TO ALL B-LACTAM DRUGS. PERFORMED BY: [place] [address] PATHOLOGIST HEALTH AND WELLNESS ADVISOR JONELLE DAVIS M.D. [facility] Comment on above: Performed By: #### A VENTURA HERRERA #### [address] Urine bacteria detection by automated methodOrdered By: Gisselle Kaur on 01-13-2023 Bacteria Auto Ql (U) 2+ None Seen [facility] Urine clarity by refractomet ry automatedOrdered By: Gisselle Kaur on 01-13-2023 Clarity Refractometry automated (U) Clear Clear [facility] Urine culture routineOrdered By: Gisselle Kaur on 01-13-2023 Bacteria identified Cx Nom (U) Staphylococcus epidermidis [facility] Urine glucose measurement by automated test strip (mass/volume)Ordered By: Gisselle Kaur on 01-13-2023 Glucose Auto test strip (U) [Mass/Vol] Normal mg/dL Normal [facility] Urine hemoglobin detection b y automated test stripOrdered By: Gisselle Kaur on 01-13-2023 Hemoglobin Auto test strip Ql (U) 1+ Negative [facility] Urine leukocyte esterase det ection by automated test stripOrdered By: Gisselle Kaur on 01-13-2023 Leukocyte esterase Auto test strip Ql (U) 4+ Negative [facility] Urobilinogen Auto test strip (U) [Mass/Vol]Ordered By: Gisselle Kaur on 01-13-2023 Urobilinogen (U) [Mass/Vol] Normal mg/dL Normal [facility] Yeast detection in urine sed iment by light microscopyOrdered By: Gisselle Kaur on 01-13-2023 Yeast LM Ql (Urine sed) None seen [HPF] None Se en [facility] pH Auto test strip (U)Ordere d By: Gisselle Kaur on 01-13-2023 pH (U) 6.5 [pH] 5.0-9.0 [facility] Progress Noteson 01-02-2023 Preschool Teacher Aide Authentication Interface Message Text EMERGENCY TRIAGE, TREAT AND TRANSPORT (ET3) DOCUMENTATION OF TELEHEALTH VISIT Date / Time: 12/31/20221999 Name: Ros Russell : 1960 SSN: (Not on file) EMS Agency: [facility] [x] Verbal consent obtained [] Implied consent - patient with potential emergency medical condition requiring assessment of capacity to refuse treatment and/or transport VITAL SIGNS: see flowsheet documentation Reason for Telehealth Visit: Chief Complaint Patient presents with Seizures History of Present Illness: This is a 62-year-old female past medical history of CKD, diabetes, TIA. EMS was called due to the patient having multiple seizures. Patient was with family and they noted 3 seizures, where the patient became unresponsive, and had general shaking movement. Each of these lasted approximately 30 seconds, that after short period of time the patient became awake. During 1 of the seizures the patient's reported to fall to the ground from a chair. Family has a history of a single similar seizure approximately 1 week ago, but the patient did not seek medical care at that time. Prior to that there were no reported seizures. Family reports the patient has worsening chronic kidney disease, is being evaluated to go on dialysis. EMS arrived, found the patient to be awake and alert, but glucose was 138. Despite their attempts to convince the patient, she refused to go to the hospital for further evaluation. ET 3 was contacted. Additional pertinent PMHx, SocHx, FamHx: See above Review of Systems: Denies the following: Headache, neck pain, back pain, dizziness, lightheadedness, chest pain, cough, difficulty breathing, fever, nausea/vomiting, dysuria, leg pain or swelling, weakness. No other recent falls or injury. Exam: General: Awake, no distress ENT: normocephalic, atraumatic, no gross cephalhematoma bruising or laceration. Pulmonary: No respiratory distress Cardiovascular: Well perfused Neurologic: Oriented to person, place, time and events. Moving all extremities equally. Psychiatric: Appropriate. Patient can describe events, past history, but does not get into the details about why she does not want medical care Medical Decision Making: This is a [age]-year-old female with recurrent seizures. I spoke with the patient, her 2 family members that were in the kitchen with her, at length about my concerns of recurrent seizures in the fact that these could represent a number of etiologies including DIRECTOR PRESALES disease or space-occupying lesion, cardiac dysrhythmia, and potentially lethal electrolyte imbalance. After approximately 10 minutes conversation, patient began to have another seizure, and at that time EMS intervened and transported the patient to the hospital. There were no further questions from the EMS crew with the family. Disposition Supported by Telehealth Assessment: ET3 transport decisions: Transport to hospital EMS Disposition Reported: Same ET3 Encounter Completed by: Bryan Olmedo MD Normal [employer] Coding Summaryon 12-24-2022 Coding Summary HTMLBase 64 RksjgociDDq8kTk+PGhl YWQ+XT1TDTQrH57rlFXa wL8pV2SLVSyAFyjdPESJ BFtFRaVahwWbLP3fgKXt ZXJu IC8+LW4vCQKlKeddaDRj x6M1cNH0F13tem9jWSwg pWO2UYVfLbQokdncx5lx fKx2EFjsFacuUgLj GOZsrR93QNV9sB81Hs59 kNUnxDZun4dxkSm9QlUs AXLyEPP1hGnxBBovr1Ls TYMpB39rlISts5Z4 IGNvbGxhcHNlOyBlbXB0 cY4jYKrmotcva1dkrqdu Hbm1fv11sZPsg6R4fMM0 E2TvwpQ4HSYbuFTx ElnroGASbI4rultbj3dq qcdxRjNkDENzXTb5JIy0 QIFnbKazGuKqDN57RAE7 GYZksyXmD5CbTQIb kHosXpA8u2P4Ib4OU6JG KddmG9PAWKOXKPrepCZ+ WT59ea23D0QnGzmvNme3 OWRgWHM4oCJ4xM4w QCHqTNjmo2C8hGB7O1Tp xwBbls7sy4keRMEzWVgw B78wkOOts4F7ARErnXN8 EQOpyQxxNrOebI55 Oyc+OUJaoFair6MzDgjn q9gtc0uslRj7FklbQNAy thDmtVmkMZV8b6IgBu0n ARAusWI4mAY9fD5x JzUkJrI6FPjgZ526RrCn lUVcIbomC93fY3XhtEG+ PWDaIej1IKEsoRoeVH8n J6QsJBSbfcafeIBm zIizRJ8jYDFirqxxXIVj uW3dNKFyM1z1ZfOjRhY0 SYxfY5HpMIYuzkmdFh56 tN2vBuRrAtB4TFqi E0BicrS6ZGLpxGGeWLzh ZSH4W12qf2V6CACgJCBq ESU2cUE8aL4flEwmcsqi bGVmdDsgdmVydGlj KGzzRCwoL575ZVXsoUyt PkNvZGluZyBEYXRlOiAg MTEvMDcvMjAyMzwvdGQ+ NLTzIOG8vHljHJXy aYEeRZxuOf3otQjbaImr XJ7yDFPnqlmtPPFtuP0v IZTxfDGelMolJQ1oKSDf yjcfm682KkTvWSF7 QVJllZDtE0ZrxD0kMaSt WNYsNDJvE3RijPQfBTvk K167BCekHoC8SVPrgeCf Q9IlKPKmuZytPvD7 f6W5Bp7Pk0XisyreX4Ys bJKeAuFvHwfuGGj6D9Md PjwvdHI+WD42ZWXkLB03 NSe8GFQ8jLbdCNvj EUPuD5XxhG8bNjDoTVKm ZGRkOyc+PHRhYmxlIHdp ZHRoPScxMDAlJyBzdHls WP3vXg2gMRWpIBEt eEdreTMvHpDta0kkXMMd ZVbrOB6jqCkaE6TmiZY9 YYSiz1h7Nu30L54aV9Jl dXA+SCXxqTB0rFP9 wG8sZvGyDkK5CPwjJ182 HoKicAPqRcmew6abk2dw gDp8ZnM7VQLwwfJueOdu NVK9z8PiXs05Q08l IHdpZHRoPSIxNSUiIHZh yQxeat2heA5eZw4+PGNv yPG3dPV5fD2fNqIzIpR5 QGswR075PeDkcQIb Jbrio8kzi3fqkRh4KmHs IFPbpeZnbHojCBK9z4Bg Os23I2DhxSfht6ZrCet4 km35uIQzq2R5nKS8 Y5WpALGoiegszNPpeDfb KI6bOCCnnwdwXSKjvO4n VZZfH5g3IqLtFkG2QMym K0LadqL9BKOmfWQq JMEjfYOWtW6krtrmj2qu ffwzBiElKGTcUEb1ZYf7 JLLkoEosCyVdHOL7TkG0 MGY6rILjfZ2ncLey kfpjnS6nVyp+OCR4qWOz zUKMWI8wTwxanZM+PHRk LRY5zXsfXJvpANHleH4u YXBdP2a0LeVgJyA8 MUftN9OacmM9QTHncWQt TBBlqUSYfE2vnjdln5zn aymkCaGuGTSuJVs2ZLi2 LWFsaWduOiBsZWZ0 FtD5PZK6eNTewN1xcAdq vbysjQ5qNoy+QmlydGgg XPK8WGe0Z6MiZrj4RFHa tWmrED8nlZBiBNtu Cy9vtLlrrZxkTE0pNXQh yaesg839SqRnw9fpRYBu fVQvENnmBFE3O97lk8P8 JJPiHSHaQVC1mPU8 uE9kxAbwsjtetUFevDnk qbJdbWpaFKibQOlxU522 XUKbyJrgAtJdQGz3W7Dg Qmn5GNRykOteEF8y zLXoSFyxHk5lhAglcJbk YF8fHBYkhtodw427ZoEh t7oaMDRpxPIgETxpAYP6 K21df3J9EPRdVGDw UDC6jAY3vQ8mkRosflbu bGVmdDsgdmVydGljYWwt JXdtC014XRXttSbnHlBs dPc8S8VpVxq5TLYi fOgeJK6ciSSiIDhmHj9d vVuwaJeuHC9dUQKiciut o885KrQlk4cqXWVgkEEu SIfyVIE6H47mk1L1 NJBxUBLdILX1zMM2yN9m bGlnbjogbGVmdDsgdmVy wMvpPSmaNJaqP992AHFh cDsnPlBhdGllbnQg JQouDSq2Z3LaXfoaySY+ HO73LPGlZI16pXWiwIHm o2jrjHc8RqQjSEIiSSG8 lPanPMbnk5TzIPRy O46biSNxi8X3CYWsuUog wENiGuLqpXU7aA8xLSla jgqop8btwldrHwklq0hy ox02eO22U94nKCcw ZHRoPSIzMCUiIHZhbGln iu4erP6jVr2+PGNvbCB3 cCE5xW9mYHObXqC0RUem D251QqOwpVLrVyeb n8nzq8iazQz6HsL3TKKv lsYrwHzkBZU0e9UuOz17 B08nVYdcDOSaDLMaJYZs HQFagCkxgp6bkV8l Ii8+VVJflAL9nWA1tJ5e WhVxWnZ0HLlxP994YeOe uQQnHoihQ79vV1XjkBB+ VCKaObv1IUHpdIyp KO8qwVAaFIxwWa1qKOC3 JbIbKnYwPUmvT3SmONKc dlvdacpzdOV2PQOrJXNx eS82Tn4klJhtUBFj nZKDkU4ikmsxb9dnbcnq GzNcUMIaJEg1VLz2LNJs wDxeEsZbMTI8UaM0YTB6 mNBvwJ5glLrrqatj aY9bK6DuBFBluvhhTg14 vI1oVfAeGyS7ZWdxIvc+ H3uMJ7axTLxFTSlBRXV3 Q7OoWoy5UILwoCsi ZQ1ocRCnGAwdQg5dzEac vNowLB1lJUUeszubFEMl tN4dRTBndDJouNueIV2z LUWgrwwku712YpEe GTD3HDRwfTFzH3MiiI7c FjOmUGWfQBZvG6GquHAw SOfzU290IRvfJeX3GBBd ejGhY9SeGQBldPgu VgG2r6H3Mx5pQc4yZU4n DFFaTL34YW68rCFox3B2 sTI8A8CjCBSlihpqqoao pBY8EZOtOLZawS72 cNTgSKgmWv4hs1I4o990 UFPeMMOhvI40Er5ozNpb TCAcgSVNxE5jxqdjz3yi cjogIzAwMDAwMDt0 RSr8CDOosUfbWrZrWKT2 OsA7DKN6oTOiyW2yaNjz gwrnjF2rFjx+NjIgWWVh dyY5G0ZtCqc7BUGx xYxgAF8vsVDgQDrlUv5y wVzicGezNE2hBUUkyepp BQNclU8nUITujBStvPnp ZZ5fJUEpkjvuj197 UqBlJXW5RQAsdGWjC7Bj iR0tJlRdEVCiUTReP8Ss fWTrCHevA766GXqlUkG0 WPRsfpIkV1YvLFJj wFogIfF6a8N7Ho8XEI9Q CNI2J7UgMby2USCrjCsj CO7dlOHuHIdlFp4flQvw xXjwDX2sUXBsdtei WEPdbS4lJTFzlJIhwFwl SV7bKDVonudgs476UuUa PQX2DIKpxWPcY6TkmV6u BoNgTRUdRBHtN1Ew jBFaYDuuC770WBpjSqG0 VDImraXfW8XbNDKtwIwq PgA2a5W5Oz9ZpLLoS1Fh E1u4A0KiSjiljRP+ LP76EWNsTA43lYLruXJn h5nohLe2MqFiRWMsMUK3 jGtfMMjft3OhZKXtB56r gTQft9Z4ONVciIij uUUgPtWmsHU5fY1kOYkw hkwzf9nqbahePsprs8ca mh93xR61L71rBWocQZKi PSIzMCUiIHZhbGln cr3vqM7oXb6+PGNvbCB3 pKR0yU5cFjGoJtW1UMvu B957GbFfjMRfUypme6hn w7eqrMw9XmYwLMIk tvXadBvzQBC4v7CyBd01 I22zYAkvULJyFPGdODSi SFExxDxxiq6fkV8qYs0+ SC1dp8urhy82mE22 dHI+PNRhOMB7qSgsPHia SKJdoZ1wGHelNdY0FNOj KmCvxW76xXBcRHhnGr6s pFydvHlxYU0jVTDy ttkrn961WfKng0kqEDOn fTHlQVwzUNY0O54me3O7 RZRbZSNbZTH9uVE4pC1z bGlnbjogbGVmdDsg igKljBggOJmwFZzgN413 NPDfzEaeZvZlcBKjC7ny qkURJA9nAnwvvBQ+PHRk KNC2mLbhOOgaJKZw qN4qTTHfW0v6ViUoNcV5 UUznH8NqvzE9GULcrOUd KAAmvQYWaW0yekedj5vl cjogIzAwMDAwMDt0 PJn4NBEpcIuiAeEnCUZ8 PvQ1UMQ3tJVtiC0sbXsc hsqiyL3vQus+RklOOjwv dGQ+JHBdNKN6gUay UWolTVDfqW6pQKFiV6k9 GzGpGkP6AHpeC0DwbtH2 HALugDIlLRYweZZVeK8g ihnqt8lcdudoUfVv FFBiZGw0OJn5FKOgdOwo WfGjKKK6WaN0TFR6aHOg vQ8drWnbvnnrbM0hHdo+ TVJOOjwvdGQ+PHRk RYN4kGwpOMwxWRImjA4v ZBIoB3z9FwHqLeU5CKqj J8NebwL3IUGrdZCuASYk sYWHcY2jqunec1nf rwjzIzMkLMMiYRk6POc1 PXLyySkaFsIhNXF1QbQ3 QZS0oUQfsM7flOodhgpm wK2uKrq+AGQ8OMV2 KN75GZ34O1VgAlhduOKu bGU+PHRhYmxlIHdpZHRo QVdxEONcJwEhiTuzRD7e Sz4lIOQlAUZaiBnf cHN (more content not included)... [facility] Patient Provided Health Data on 12-23-2022 Patient Provided Health Data [id number] 9#1.00OTGTIFF [facility] Patient Provided Health Data [id number] 4#1.00OTGTIFF Normal [facility] .Auto Diff 1on 12-19-2022 Auto Garrett % 9 % Normal -12 [facility] Comment on above: Performed By: #### 1 [id number], [id number], [id number] ####[facility] (DEFAULT)[address] [place] [address] Baso Abs# 0.1 x10 Normal 0.0-0.2 [facility] Comment on above: Performed By: #### 1 [id number], [id number], [id number], [id number] ####[facility] (DEFAULT)[address] [place] [address] Basophils/100 WBC (Bld) 1.0 % Normal 0.2-2.0 [facility] Comment on above: Performed By: #### 1 [id number], [id number], 3650902, [id number], 98777137, [id number], [id number] ####[facility] (DEFAULT)[address] [place] [address] 87438 Eos Abs# 0.1 x10 Normal 0.0-0.4 [facility] Comment on above: Performed By: #### 1 [id number], 6572979, 9413134, [id number], [id number], 2428107632, 1353587 ####[facility] (DEFAULT)[address] [place] [address] 18262 Eosinophils/100 WBC (Bld) 1.7 % Normal 0.9-4.0 [facility] Comment on above: Performed By: #### 1 [id number], 4287881, 4450635, [id number], 04402921, [id number], 6561865 ####[facility] (DEFAULT)[address] [place] [address] 64972 Lymph Abs# 1.4 x10 Normal 1.3-2.9 [facility] Comment on above: Performed By: #### 1 [id number], 9032013, 0445139, [id number], 32779125, [id number], 5397922 ####[facility] (DEFAULT)[address] [place] [address] 72275 Lymphocytes/100 WBC (Bld) 19 % Normal 14-48 [facility] Comment on above: Performed By: #### 1 [id number], 4652803, 7333195, [id number], 40305280, [id number], 8805377 ####[facility] (DEFAULT)[address] [place] [address] 15422 Garrett Abs# 0.7 x10 Normal 0.0-0.8 [facility] Comment on above: Performed By: #### 1 [id number], 5161192, 6287244, [id number], 82461612, [id number], 2188548 ####[facility] (DEFAULT)[address] [place] [address] 73403 Neut Abs# 5.1 x10 Normal 1.5-9.2 [facility] Comment on above: Performed By: #### 1 [id number], 9118477, 2637046, [id number], 68406296, 8961244406, 0637477 ####[facility] (DEFAULT)[address] [place] [address] 45733 Neutrophils/100 WBC (Bld) 70 % Normal 44-88 [facility] Comment on above: Performed By: #### 1 [id number], 5766859, 7274027, [id number], 43410753, [id number], 9741438 ####[facility] (DEFAULT)[address] [place] [address] 01444 BUN/Creat Ratioon 12-19-2022 eGFR AA 6 mL/min/1.73m2 Invalid Interpretation Code [facility] Comment on above: Performed By: #### 1 [id number] ####[facility] (DEFAULT)[address] [place] [address] 29797 eGFR Non AA 5 mL/min/1.73m2 Invalid Interpretation Code [facility] Comment on above: Performed By: #### 1 [id number] ####[facility] (DEFAULT)[address] [place] [address] Creatinine [Mass/Vol] 7.69 mg/dL High 0.60-1.30 [facility] Comment on above: Result Comment: Crit ical result CRE 7.69 mg/dL called to and read back by Called to Dr. Duncan at 19-Dec-2022 15:49 by CHARMAINE. Performed By: #### 1 [id number] ####[facility] (DEFAULT)[address] [place] [address] Urea nitrogen [Mass/Vol] 136 mg/dL High 8- [facility] Comment on above: Result Comment: Crit ical result BUN 136 mg/dL called to and read back by Dakota Albert at 19-Dec-2022 15:50 by CHARMAINE. Result Confirmed by Dilution Performed By: #### 1 [id number] ####[facility] (DEFAULT)[address] [place] [address] CBC w/ Auto Diffon 3 Erythrocyte distribution width (RBC) [Ratio] 13.3 % Normal 11.5-15.0 [facility] Comment on above: Performed By: #### 1 [id number], 4259022, 3675653, 5827177796, 90057108, 7544671432, 0710783 ####[facility] (DEFAULT)[address] [place] [address]375 Hematocrit (Bld) [Volume fraction] 39.2 % Normal 33.7-40.4 [facility] Comment on above: Performed By: #### 1 [id number], 2521653, 2655896, 0617364323, 25824392, 0752418315, 6631914 ####[facility] (DEFAULT)[address] [place], [place] [address] Hemoglobin (Bld) [Mass/Vol] 13.3 g/dL Normal 11.3-15.9 [facility] Comment on above: Performed By: #### 1 [id number], 4795480, 6416032, 8603003905, 14869041, 2131700629, 0304090 ####[facility] (DEFAULT)[address] [place] [address] 24700 MCH (RBC) [Entitic mass] 31 pg Normal 24-34 [facility] Comment on above: Performed By: #### 1 [id number], 6667781, 6226178, 5552304075, 22889561, 6204292729, 2641189 ####[facility] (DEFAULT)[address] [place] [address] 20448 MCHC (RBC) [Mass/Vol] 34 g/dL Normal 26-37 [facility] Comment on above: Performed By: #### 1 [id number], 1476636, 9418457, 1704497004, 33518610, 1652529370, 7909409 ####[facility] (DEFAULT)[address] [place] [address] 48727 MCV (RBC) [Entitic vol] 91 fL Normal 81-100 [facility] Comment on above: Performed By: #### 1 [id number], 5057897, 1244876, 6367774661, 62533209, 9520016873, 5189263 ####[facility] (DEFAULT)[address] [place] [address] 17481 Platelet 274 x10 Normal 138-427 [facility] Comment on above: Performed By: #### 1 [id number], 4763082, 6421280, 1937068442, 47198007, 2269170390, 4134871 ####[facility] (DEFAULT)[address] [place] [address] 56060 Platelet mean volume (Bld) [Entitic vol] 8.7 fL Normal 6.3-10.2 [facility] Comment on above: Performed By: #### 1 [id number], 2042066, 1438784, 3451425445, 70767818, 6735883906, 6970126 ####[facility] (DEFAULT)[address] [place] [address] RBC 4.32 x10 Normal 3.70-5.30 [facility] Comment on above: Performed By: #### 1 [id number], 4201932, 6436079, 1241261353, 33299152, 5362747560, 2899422 ####[facility] (DEFAULT)[address] [place] [address] WBC 7.4 x10 Normal 3.5-10.5 [facility] Comment on above: Performed By: #### 1 [id number], 2908809, 5549470, 1354119110, 45764025, 8293127711, 5322782 ####[facility] (DEFAULT)[address] [place] [address] Man Diff? Auto Invalid Interpretation Code [facility] Comment on above: Performed By: #### 1 [id number], 0283263, 2584850, 2475034137, 90941693, 3123605970, 3284810 ####[facility] (DEFAULT)[address] [place] [address] CMP Standardon 12-19-2022 Osmolality 310 mOsm/L Invalid Interpretation Code [facility] Comment on above: Performed By: #### 1 [id number], 9129382, 3763543, 7323797616, 05774794, 3045204801, 8605074 ####[facility] (DEFAULT)[address] [place] [address] Urea nitrogen [Mass/Vol] 134 mg/dL High 10-12 [facility] Comment on above: Result Comment: Crit ical result BUN 134 mg/dL called to and read back by Dr. Ashton at 19-Dec-2022 16:59 by CHARMAINE. Performed By: #### 1 [id number], 3604535, 1054957, 0496882482, 48930233, 0127194840, 5100293 ####[facility] (DEFAULT)[address] [place] [address] Urea nitrogen/Creatinine [Mass ratio] 17.8 mg/mg High 4.6-16.2 [facility] Comment on above: Performed By: #### 1 [id number], 8414288, 7975465, 8235575480, 93861489, 1159513904, 6215395 ####[facility] (DEFAULT)[address] [place] [address] 25967 eGFR Non AA 5 mL/min/1.73m2 Invalid Interpretation Code [facility] Comment on above: Performed By: #### 1 [id number], 5784621, 5288200, 2553225712, 85457608, 3130683035, 0844130 ####[facility] (DEFAULT)[address] [place] [address] 20581 eGFR AA 7 mL/min/1.73m2 Invalid Interpretation Code [facility] Comment on above: Performed By: #### 1 [id number], 4377038, 6384005, 2856837593, 64149738, 7318993868, 6741923 ####[facility] (DEFAULT)[address] [place] [address] 90574 Albumin [Mass/Vol] 4.4 g/dL Normal 3.5-5.0 [facility] Comment on above: Performed By: #### 1 [id number], 0885436, 4314549, 3165572030, 96753891, 0834611237, 8007181 ####[facility] (DEFAULT)[address] [place] [address] 86771 Albumin/Globulin [Mass ratio] 1.2 {ratio} Low 1.4-2.6 [facility] Comment on above: Performed By: #### 1 [id number], 9892065, 6329164, 7252371831, 31884791, 3008031662, 3631205 ####[facility] (DEFAULT)[address] [place] [address] 63335 Alk Phos 95 IU/L High 32-91 [facility] Comment on above: Performed By: #### 1 [id number], 7704927, 5432368, 9716515053, 41124695, 0419076921, 8967373 ####[facility] (DEFAULT)[address] [place] [address] 28771 ALT [Catalytic activity/Vol] 17.0 U/L Normal 14.0-54.0 [facility] Comment on above: Performed By: #### 1 [id number], 9420678, 5306452, 3536758019, 86710505, 8720726168, 7321996 ####[facility] (DEFAULT)[address] [place] [address] 06266 Anion gap [Moles/Vol] 21.8 mmol/L High 5.0-19.0 [facility] Comment on above: Performed By: #### 1 [id number], 8186604, 7938490, 2547772887, 69481224, 4805824987, 5062264 ####[facility] (DEFAULT)[address] [place] [address] 19975 AST [Catalytic activity/Vol] 17 U/L Normal 15-41 [facility] Comment on above: Performed By: #### 1 [id number], 6030702, 0613870, 3835750466, 77274636, 4704272608, 8006064 ####[facility] (DEFAULT)[address] [place] [address] 37347 Bili Total 0.3 mg/dL Normal 0.3-1.2 [facility] Comment on above: Performed By: #### 1 [id number], 3273472, 3835454, 4392463556, 38465481, 9347744102, 1228093 ####[facility] (DEFAULT)[address] [place] [address] 10319 Creatinine [Mass/Vol] 7.51 mg/dL High 0.60-1.30 [facility] Comment on above: Result Comment: Crit ical result CRE 7.51 mg/dL called to and read back by Dr. Ashton at 19-Dec-2022 16:48 by CHARMAINE. Performed By: #### 1 [id number], 2985597, 8986057, 1142953807, 21095729, 0251548547, 8260360 ####[facility] (DEFAULT)[address] [place] [address] 45069 Globulin (S) [Mass/Vol] 3.6 g/dL Normal 1.5-4.3 [facility] Comment on above: Performed By: #### 1 [id number], 8525742, 0315731, 3464057392, 14442603, 7968616317, 1332243 ####[facility] (DEFAULT)[address] [place] [address] 73325 Protein [Mass/Vol] 8.0 g/dL Normal 6.5-8.1 [facility] Comment on above: Performed By: #### 1 [id number], 2646476, 3742068, 4575204730, 99612796, 9426305972, 5502744 ####[facility] (DEFAULT)[address] [place] [address] 03904 Calcium [Mass/Vol] 7.0 mg/dL Low 8.9-10.3 [facility] Comment on above: Performed By: #### 1 [id number], 9592892, 1975717, 2467510067, 14525247, 7803179686, 1154854 ####[facility] (DEFAULT)[address] [place] [address] 80057 Chloride [Moles/Vol] 84 mmol/L Low 101-111 [facility] Comment on above: Performed By: #### 1 [id number], 3141619, 7913295, 6210368929, 51268448, 4611614009, 6579873 ####[facility] (DEFAULT)[address] [place] [address] 90116 CO2 [Moles/Vol] 30 mmol/L Normal 21-32 [facility] Comment on above: Performed By: #### 1 [id number], 2391533, 2461108, 8449903821, 94585681, 0358692926, 3795041 ####[facility] (DEFAULT)[address] [place] [address] 08389 Glucose [Mass/Vol] 100.0 mg/dL Normal 74.0-118.[address] [facility] Comment on above: Performed By: #### 1 [id number], 1294971, 4712871, 9520263695, 55872695, 2394875860, 2046145 ####[facility] (DEFAULT)[address] [place] [address] 78310 Potassium [Moles/Vol] 2.8 mmol/L Low 3.6-5.1 [facility] Comment on above: Performed By: #### 1 464783660, 5598797, 7102711, 7846562946, 56266290, 2497163582, 6426260 ####[facility] (DEFAULT)[address] [place] [address] Sodium [Moles/Vol] 133.0 mmol/L Low 136.0-144.0 [facility] Comment on above: Performed By: #### 1 [id number], 2542920, 1117066, 8049318225, 92846987, 2401586239, 3528372 ####[facility] (DEFAULT)[address] [place] [address] CT Chest/Abdomen/Pelvis w/o Contraston 12-19-2022 CT Chest/Abdomen/Pelvis w/o Contrast CT chest: HISTORY: Abdominal pain. Abdominal mass. Nausea and vomiting. Weight loss. Constipation. History of polycystic kidney disease. COMPARISON: None available TECHNIQUE: Multiple axial images of the chest were obtained without IV contrast Multiplanar reformats were acquired. All CT scans at this facility use dose modulation, iterative reconstruction, and/or weight based dosing when appropriate to reduce radiation dose to as low as reasonably achievable. FINDINGS: Visualized portion of the thyroid gland appears within normal limits. No axillary, mediastinal, or hilar lymphadenopathy. No thoracic aortic aneurysm. Atherosclerotic calcification of the thoracic aorta. Heart size is within normal limits. Coronary artery calcifications are identified. No significant pericardial effusion. No suspicious pulmonary nodule. No pulmonary mass. No consolidation, pneumothorax, or pleural effusion. Mild emphysema. No acute osseous abnormality. IMPRESSION: No acute intrathoracic process. Emphysema. Low-dose cancer screening should be considered, if not already enrolled in such a program. CT abdomen pelvis: TECHNIQUE: Multiple axial images were obtained of the abdomen and pelvis without contrast. Multiplanar reformats were obtained. All CT scans at this facility use dose modulation, iterative reconstruction, and/or weight based dosing when appropriate to reduce radiation dose to as low as reasonably achievable. FINDINGS: Evaluation of the abdominal and pelvic viscera is suboptimal without intravenous contrast. There are a few thin scattered peripheral calcifications of the gallbladder. The gallbladder is otherwise unremarkable. Numerous cysts are scattered throughout the liver. The spleen, stomach, and pancreas appear within normal limits. The adrenal glands are poorly visualized secondary to the kidneys. Cysts are present throughout both significantly enlarged kidneys which take up the vast majority of the abdomen and extend inferiorly into the superior aspect of the pelvis with the left kidney measuring up to approximately 24 cm in craniocaudal length. Scattered areas of renal parenchyma are present throughout both kidneys. The ureters were not definitively visualized. The urinary bladder is incompletely distended but otherwise unremarkable. The uterus is present. No retroperitoneal or mesenteric lymphadenopathy identified given the massive size of the kidneys. Abdominal aorta is non-aneurysmal. At sclerotic calcification of the abdominal aorta Evaluation of the small and large bowel is significantly limited secondary to the massive size of the kidneys. No overt abnormality of the small or large bowel identified. No pneumatosis intestinalis, portal venous gas, or pneumoperitoneum. No definitive free fluid. Degenerative changes of the spine. Significant cortical irregularity of the inferior endplate of L4 and superior endplate of L5 is likely degenerative however osteomyelitis/discit is cannot be excluded and should be considered in the appropriate clinical setting. IMPRESSION: No acute abdominal pelvic process. Massively enlarged polycystic kidneys. Significant cortical irregularity of the inferior endplate of L4 and superior endplate of L5 is likely degenerative however osteomyelitis/discit is cannot be excluded and should be considered in the appropriate clinical setting. Final Signed (Electronic Signature): Arturo Suresh DO 12/19/22 5:56 pm Technologist: AMARA Petty [facility] ED Clinical Summaryon 2022 ED Clinical Summary [facility] - Emergency Department [address] [place], [place] [id number] ED Clinical Summary PERSON INFORMATION Name: ROS RUSSELL Age: 62 Years Sex: FEMALE : 1960 MRN: Acct#: Visit Reason: Abnormal diagnostic test; ABNORMAL LABS Arrival: 12/19/2022 15:50:30 Discharge: 12/19/2022 18:20:00 LOS: 000 02:30 Check In: 12/19/2022 15:50:30 Checkout:12/19/2022 18:20:00 Address: [address] [place] [address] PCP: DELVIS DUNCAN DO PROVIDER INFORMATION Provider Role Assigned Unassigned Jonny Ashton MD ED Provider 12/19/2022 15:55:06 Reyna Garcia DIRECTOR OF HOME CARE HOSPICE Nurse 12/19/2022 15:55:18 VITALS INFORMATION Vital Sign Triage Latest Temperature Tympanic Temperature Temporal Artery 36.6 DegC Pulse Rate 84 bpm 84 bpm O2 Sat 99 % 99 % Respiratory Rate 20 br/min 20 br/min Blood Pressure /102 mmHg /102 mmHg MEDICAL INFORMATION Medications Given: Medication Dose Route ondansetron 4 mg IV Push diatrizoate (Gastrografin 37% 30 ml) 30 mL PO Allergy Information: No known allergies PHYSICIAN DOCUMENTATION DISCHARGE INFORMATION: Discharge Disposition: Home Discharge Location: Home PATIENT EDUCATION INFORMATION Instructions: Hypertension, Adult, Dyyb-el-Dhwa; Polycystic Kidney Disease, Adult; Chronic Kidney Disease, Adult, Jwvx-yu-Debb Follow-Up: With: Address: When: DELVIS DUNCAN DO [address] [place], [place] [id number] Within 3 to 5 days DIAGNOSIS: 1:Abdominal pain in female; 2:Nausea and vomiting in adult; 3:Hypokalemia; 4:Acute renal failure; 5:Chronic renal failure; 6:Elevated blood pressure reading; 7:Polycystic kidney disease Patient Understands: Yes - Patient/family/careg iver verbalizes understanding of instructions given Comment: [facility] ED Patient Summaryon 023 ED Patient Summary [facility] - Emergency Department [address] [place], [place] [id number] PATIENT DISCHARGE INSTRUCTIONS Patient Information Name: ROS RUSSELL Age: 62 Years Date of : 1960 Reason For Visit: Abnormal diagnostic test; ABNORMAL LABS Arrival Time: 12/19/2022 15:50:30 Primary Care Physician: DELVIS DUNCAN DO Attending Physician: Jonny Ashton MD Comment: Visit Diagnosis: Diagnoses This Visit Abdominal pain in female (R10.9) Abnormal diagnostic test ([id number]) Acute renal failure (N17.9) Chronic renal failure (N18.9) Elevated blood pressure reading (R03.0) Hypokalemia (E87.6) Nausea and vomiting in adult (R11.2) Polycystic kidney disease (Q61.3) The Pharmacy at [facility] is open Friday through Friday from 9A to 6P and Friday and Friday from 9A to 5P Prescription Information: If you have been given a prescription for narcotics, seek immediate medical attention if you have any difficulty breathing or any sudden status changes such as confusion and sleepiness. If you or anyone you know is experiencing suicidal thoughts, mental health, alcohol and/or drug addiction problems; contact the [facility] 09/09 Crisis Hotline -Text 2NSRJ pd 319953. If you received any narcotics, sedation, or any other medication that causes drowsiness for the next 24 hours, unless otherwise directed: ? Do not drive a car. ? Do not operate machinery such as power tools, lawn mowers, drills, sewing machines, or stoves ? Avoid alcoholic beverages and drugs for allergies, nerves, or sleep ? Do not make important personal or business decisions or sign any legal documents With: Address: When: DELVIS DUNCAN [facility] [id number] Within 3 to 5 days Medication Information: The exam and treatment you received today in the [facility] Emergency Department were for an urgent problem and are not intended as complete care. It is important for you to follow up with a doctor, nurse practitioner, or physician?s executive assistant for ongoing care. If your symptoms become worse or you do not improve as expected and you are unable to reach your usual health care provider, you should return to the Emergency Department, we are available 24 hours a day. For those patients who have received Radiology results, the interpretation of your X-ray as given to you by our Emergency Department physician is only a preliminary report. The Radiologist will review your films and if there is a change in the diagnosis you will be notified by phone. Please make sure you have provided a working phone number so we can reach you if necessary. In the event that you had a lab culture while you were a patient in the Emergency Department, you will be notified by phone if there is a need to change your antibiotic. Please make sure you have provided a working phone number so we can reach you if necessary. [facility] Emergency Department has provided you with a complete list of medications post discharge. Please inform your swiss machinist/provider of your visit and for further instruction on these medications. Any specific questions regarding your chronic medications and dosages should be discussed with your primary care physician(s) and/or pharmacist. Visit Information Allergies: Substance Reaction Symptoms Type Comments No known allergies Drug Vital Signs: Vitals and Measurements this Visit (last charted value for your 12/19/2022 visit) Vital Signs This Visit Temperature Temporal Artery: 36.6 DegC Peripheral Pulse Rate: 84 bpm Respiratory Rate: 20 br/min Systolic Blood Pressure: 142 mmHg Diastolic Blood Pressure: 102 mmHg SpO2: 99 % Oxygen Therapy: Room air Measurements This Visit Height/Length Dosin.720 cm Height/Length Estimated: 172.720 cm Weight Dosin.000 kg Weight Estimated: 45.000 kg Problems List: Problem Onset Comments Tobacco user Patient Education Hypertension, Adult Blood pressure 142/102 Your blood pressure was noted to be elevated here in the emergency room. Monitor your blood pressure and follow-up with your primary care physician to review those readings. Return to the emergency department for any worsening symptoms. Hypertension is another name for high blood pressure. High blood pressure forces your heart to work harder to pump blood. This can cause problems over time. There are two numbers in a blood pressure reading. There is a top number (systolic) over a bottom number (diastolic). It is best to have a blood pressure that is below 120/80. What are the causes? The cause of this condition is not known. Some other conditions can lead to high blood pressure. What increases the risk? Some lifestyle factors can make you more likely to develop high blood pressure: ? Smoking. ? Not getting enough exercise or physic (more content not included)... Normal [facility] Extra Redon 12-19-2022 Tube Collected Yes Invalid Interpretation Code [facility] Comment on above: Performed By: #### 1 [id number], 4723667, 0537923, [id number], 40427819, [id number], 2078602 #### [facility] (DEFAULT) [address] [place] [address] 20475 Lactic Acidon 12-19-2022 Lactic Acid 6.4 mg/dL Normal 4.5-19.8 [facility] Comment on above: Performed By: #### 2 [id number] ####[facility] (DEFAULT)[address] [place] [address] 16896 Lipaseon 12-19-2022 Lipase Level 104.0 IU/L High 22.0-51.0 [facility] Comment on above: Performed By: #### 1 [id number], 2389343, 5742482, 6830780701, 77262962, 6784256381, 6307111 ####[facility] (DEFAULT)[address] [place] [address] Magnesiumon 12-19-2022 Magnesium [Mass/Vol] 2.37 mg/dL Normal 1.80-2.50 [facility] Comment on above: Performed By: #### 1 [id number], 7772512, 4801676, 9564381436, 70863009, 9242800654, 6148154 ####[facility] (DEFAULT)[address] [place] [address] 93116 TnI HSon 12-19-2022 Troponin I High Sensitivity 9.2 pg/mL Normal <=15.0 [facility] Comment on above: Performed By: #### 1 [id number], 4269702, 9987942, 2344412640, 19454169, 4535347919, 8759255 ####[facility] (DEFAULT)[address] [place] [address] 62715 URIC ACID SERUMon 03-28-2022 Urate [Mass/Vol] 10.3 mg/dL Critically high 2.6-6.0 [facility] Comment on above: Performed By: #### U CASEY #### [facility] [address] [place] [address] Dr. Karen Galo Vital Signs Date Time Vital Sign Value Performing Clinician Facility 01-16-2023 12:00-0500 Body temperature 98.1 [degF] DO [employer] Work Phone: [facility] 01-16-2023 12:00-0500 Diastolic blood pressure 77 mm[Hg] DO [employer] Work Phone: [facility] 01-16-2023 12:00-0500 Heart rate 105 /min DO [employer] Work Phone: [facility] 01-16-2023 12:00-0500 Respiratory rate 20 /min DO [facility] Work Phone: [facility] 01-16-2023 12:00-0500 SaO2% (BldA) [Mass fraction] 97 % DO [facility] Work Phone: [facility] 01-16-2023 12:00-0500 Systolic blood pressure 109 mm[Hg] DO [facility] Work Phone: [facility] 01-16-2023 05:37-0500 Body weight 43.2 kg DO [facility] Work Phone: [facility] 01-15-2023 15:29-0500 Body temperature 98 [degF] DO [facility] Work Phone: [facility] 01-15-2023 15:29-0500 Diastolic blood pressure 72 mm[Hg] DO [facility] Work Phone: [facility] 01-15-2023 15:29-0500 Heart rate 81 /min DO [facility] Work Phone: [facility] 01-15-2023 15:29-0500 Respiratory rate 18 /min DO [facility] Work Phone: [facility] 01-15-2023 15:29-0500 SaO2% (BldA) [Mass fraction] 97 % DO [facility] Work Phone: [facility] 01-15-2023 15:29-0500 Systolic blood pressure 124 mm[Hg] DO [facility] Work Phone: [facility] 01-15-2023 05:56-0500 Body weight 46 kg DO [facility] Work Phone: [facility] 01-14-2023 13:20-0500 Inhaled oxygen flow rate 4 L/min DO [facility] Work Phone: [facility] 01-14-2023 11:42-0500 Body height 152.4 cm DO [facility] Work Phone: [facility] 12-31-2022 20:00-0500 Diastolic blood pressure 92 mm[Hg] Et3 [facility] 12-31-2022 20:00-0500 Heart rate 103 /min Et3 [facility] 12-31-2022 20:00-0500 Respiratory rate 20 /min Et3 [facility] 12-31-2022 20:00-0500 SaO2% (BldA) [Mass fraction] 96 % Et3 [facility] 12-31-2022 20:00-0500 Systolic blood pressure 145 mm[Hg] Et3 [facility] Encounters Encounter Date Encounter Type Care Provider Facility Start: 03-06-2023 End: 03-06-2023 ambulatory Del[facility] Facility:[facility] Start: 03-06-2023 End: 03-06-2023 ambulatory DO [facility] Work Phone: [facility] Work Phone: Start: 03-06-2023 End: 03-06-2023 Patient encounter procedure DO [facility] Work Phone: [facility] [place] Work Phone: Start: 02-28-2023 End: 02-28-2023 ambulatory [facility] Facility:[facility] Start: 02-28-2023 End: 02-28-2023 ambulatory DO Delvis House Work Phone: [facility] Work Phone: Start: 02-28-2023 End: 02-28-2023 Patient encounter procedure DO Delvis House Work Phone: [facility]-Ultrasound [place] Work Phone: Start: 02-18-2023 End: 02-18-2023 ambulatory Delvis House Facility:[facility] Start: 02-18-2023 End: 02-18-2023 ambulatory DO Delvis House Work Phone: [facility] Work Phone: Start: 02-18-2023 End: 02-18-2023 Departed Referred DO Delvis House Work Phone: [facility]-Dialysis Work Phone: Start: 01-21-2023 End: 01-22-2023 ambulatory Donal Avendaño MD Facility:[facility] Cli [facility] Start: 01-15-2023 End: 01-15-2023 ambulatory Seven Smith Facility:[facility] Start: 01-15-2023 End: 01-15-2023 ambulatory DO Delvis House Work Phone: [facility] Work Phone: Start: 01-15-2023 End: 01-15-2023 Departed Referred DO Delvis House Work Phone: [facility]-Dialysis Work Phone: Start: 01-13-2023 End: 01-16-2023 Evaluation and management of inpatient Delvis House Facility:[facility] Start: 01-13-2023 End: 01-16-2023 Evaluation and management of inpatient DO Delvis House Work Phone: [facility] [place] [facility] Work Phone: Start: 01-02-2023 End: 01-15-2023 ambulatory UNKNOWN PROVIDER [facility] Start: 12-31-2022 End: 12-31-2022 Emergency department [facility] and Transport Comment on above: Arrived Start: 12-31-2022 End: 01-01-2023 ambulatory [facility] Emergenc y Triage, Treat and Transport Start: 12-19-2022 End: 12-19-2022 Emergency department patient visit Jonny Ashton Facility:[facility] Start: 12-19-2022 End: 12-20-2022 ambulatory DELVIS P HOUSE Facility:[facility] Start: 12-19-2022 End: 12-20-2022 ambulatory DELVIS P [place] Facility:[facility] Cli raheem Start: 03-28-2022 End: 03-29-[address] DELVIS DUNCAN Facility:H1 Procedures Date Procedure Procedure Detail Performing Clinician Start: 03-06-2023 US angiography DO Delvis House Work Phone: Start: 02-28-2023 Ultrasonography of liver DO Delvis Epps e Work Phone: Start: 01-15-2023 Esophagogastroduodenoscopy DO Delvis Acosta use Work Phone: Start: 01-14-2023 Catheterization DO Delvis Duncan Work Phone: Start: 01-13-2023 CT of abdomen and pelvis without contrast DO Delvis Duncan Work Phone: Start: 01-13-2023 Urine culture DO Delvis Duncan Work Phone: Plan of Treatment Date Care Activity Detail Author Start: 01-18-2023 Blood chemistry [facility] Start: 01-17-2023 Blood chemistry [facility] Start: 01-16-2023 [facility] Start: 01-16-2023 Blood chemistry [facility] Start: 01-14-2023 Referral to vascular surgeon [facility] Start: 01-13-2023 Hospital admission [facility] Start: 01-13-2023 Referral to seat pack inspector [facility] Start: 01-13-2023 Referral to dispatcher service or work [facility] Start: 01-13-2023 [facility] Start: 01-13-2023 Insertion of Infusion Device into Lower Vein, Percutaneous Approach Insertion of Infusion Device into Lower Vein, Percutaneous Approach [facility] Start: 01-13-2023 Performance of Urinary Filtration, Intermittent, Less than 6 Hours Per Day Performance of Urinary Filtration, Intermittent, Less than 6 Hours Per Day [facility] Start: 01-13-2023 Urine culture Urine Culture [facility] Start: 10-18-2022 Influenza vaccination Influenza Vaccine (#1) [facility] Start: 2020 RSV vaccine (optional 60+ years) RSV vaccine (optional 60+ years) [facility] Start: 2010 Shingles (RZV) Vaccine (1 of 2) Shingles (RZV) Vaccine (1 of 2) [facility] Start: 2005 Cholesterol [Mass/volume] in Serum or Plasma Cholesterol [facility] Start: 2005 Screening for malignant neoplasm of colon [facility] Start: 2000 Screening for malignant neoplasm of breast Mammography [facility] Start: 1981 Screening for malignant neoplasm of cervix Pap Smear [facility] Start: 1978 Hepatitis C screening Hepatitis C Antibody [facility] Start: 1978 Tetanus + diphtheria + acellular pertussis vaccine (product) Tdap Booster [facility] Start: 09-15-1975 HIV screening HIV Test [facility] Start: 03-17-1961 COVID-19 Vaccine (#1) COVID-19 Vaccine (#1) [facility] Start: 1960 Screening for malignant neoplasm of colon [facility] Anion gap measurement [facility] Patient Education Dialysis Diet Hemodialysis (DC) End Stage Kidney Disease (DC) Cannabis hyperemesis syndrome [facility] Work Phone: Patient referral [facility] Work Phone: Payers Date Payer Category Payer Self-pay 2022 Unknown [id number] 1960 Unknown [id number] 2.16.84 [id number] 1960 Unknown [id number] 2.16. [id number] 1960 Unknown [id number] 2.16.8 [id number] 1960 Unknown [id number] 2.16.8 [id number] 1960 Unknown [id number] 2.16.8 [id number] 1960 Unknown [id number] 2.16.8 [id number] 1960 Unknown [id number] 2.16.8 [id number] 1959 Unknown [id number] Unknown [id number] 2.16.8 [id number] Unknown [id number] 2.16.8 [id number] Unknown [id number] 2.16.8 [id number] Unknown [id number] 2.16.8 [id number] Unknown [id number] 2.16.8 [id number] Social History Date Type Detail Facility Tobacco smoking status [facility] Tobacco smoking consumption unknown [facility] Start: 1960 Sex Assigned At Not on file [facility] Gender identity Not on file [facility] Start: 01-15-2023 Tobacco smoking status NHIS Smoker (finding) [facility] Start: 1960 Sex Assigned At Female F [facility] Medical Equipment Procedure Code Equipment Code Equipment Origin al Text Equipment Identifier Dates Insertion, catheter, dialysis, tunneled, with imaging guidance Double-lumen haemodialysis catheter, implantable [id number] FDA Start: 01-14-2023 Insertion, catheter, dialysis, tunneled, with imaging guidance Double-lumen haemodialysis catheter, implantable [id number] FDA Start: 01-14-2023 Goals Date Patient Goal Desired Activity /State Functional Status Date Assessment Result Facility 01-16-2023 Functional status Patient at Baseline [facility] Work Phone: 01-13-2023 Functional status Patient at Baseline [facility] Work Phone: Mental Status Date Assessment Result Facility 01-16-2023 Cognitive function Cognitive Sta tus Patient at Baseline [facility] Work Phone: 01-13-2023 Cognitive function Cognitive Sta tus Patient at Baseline [facility] Work Phone: History of Present illness Narrative 01-02-2023 Bryan Olmedo MD - 01/02/2023 9:15 AM EST Note Date & Type Note Facility 01-02-2023 History of Presen t illness Narrative Images from the original note were not included. EMERGENCY TRIAGE, TREAT AND TRANSPORT (ET3) DOCUMENTATION OF TELEHEALTH VISIT Date / Time: 12/31/20221999 Name: Ros Russell : 1960 SSN: (Not on file) EMS Agency: [facility] [x] Verbal consent obtained [] Implied consent - patient with potential emergency medical condition requiring assessment of capacity to refuse treatment and/or transport VITAL SIGNS: see flowsheet documentation Reason for Telehealth Visit: Chief Complaint Patient presents with Seizures History of Present Illness: This is a 62-year-old female past medical history of CKD, diabetes, TIA. EMS was called due to the patient having multiple seizures. Patient was with family and they noted 3 seizures, where the patient became unresponsive, and had general shaking movement. Each of these lasted approximately 30 seconds, that after short period of time the patient became awake. During 1 of the seizures the patient's reported to fall to the ground from a chair. Family has a history of a single similar seizure approximately 1 week ago, but the patient did not seek medical care at that time. Prior to that there were no reported seizures. Family reports the patient has worsening chronic kidney disease, is being evaluated to go on dialysis. EMS arrived, found the patient to be awake and alert, but glucose was 138. Despite their attempts to convince the patient, she refused to go to the hospital for further evaluation. ET 3 was contacted. Additional pertinent PMHx, SocHx, FamHx: See above Review of Systems: Denies the following: Headache, neck pain, back pain, dizziness, lightheadedness, chest pain, cough, difficulty breathing, fever, nausea/vomiting, dysuria, leg pain or swelling, weakness. No other recent falls or injury. Exam: General: Awake, no distress ENT: normocephalic, atraumatic, no gross cephalhematoma bruising or laceration. Pulmonary: No respiratory distress Cardiovascular: Well perfused Neurologic: Oriented to person, place, time and events. Moving all extremities equally. Psychiatric: Appropriate. Patient can describe events, past history, but does not get into the details about why she does not want medical care Medical Decision Making: This is a [age]-year-old female with recurrent seizures. I spoke with the patient, her 2 family members that were in the kitchen with her, at length about my concerns of recurrent seizures in the fact that these could represent a number of etiologies including DIRECTOR PRESALES disease or space-occupying lesion, cardiac dysrhythmia, and potentially lethal electrolyte imbalance. After approximately 10 minutes conversation, patient began to have another seizure, and at that time EMS intervened and transported the patient to the hospital. There were no further questions from the EMS crew with the family. Disposition Supported by Telehealth Assessment: ET3 transport decisions: Transport to hospital EMS Disposition Reported: Same ET3 Encounter Completed by: Bryan Olmedo MD documented in this encounter [facility] Clinical Note 12-19-2022 Note Date & Type Note Facility 12-19-2022 Note Education Materials Cardiovascular Hypertension, Adult Blood pressure 142/102 Your blood pressure was noted to be elevated here in the emergency room. Monitor your blood pressure and follow-up with your primary care physician to review those readings. Return to the emergency department for any worsening symptoms. Hypertension is another name for high blood pressure. High blood pressure forces your heart to work harder to pump blood. This can cause problems over time. There are two numbers in a blood pressure reading. There is a top number (systolic) over a bottom number (diastolic). It is best to have a blood pressure that is below 120/80. What are the causes? The cause of this condition is not known. Some other conditions can lead to high blood pressure. What increases the risk? Some lifestyle factors can make you more likely to develop high blood pressure: ? Smoking. ? Not getting enough exercise or physical activity. ? Being overweight. ? Having too much fat, sugar, calories, or salt (sodium) in your diet. ? Drinking too much alcohol. Other risk factors include: ? Having any of these conditions: ? Heart disease. ? Diabetes. ? High cholesterol. ? Kidney disease. ? Obstructive sleep apnea. ? Having a family history of high blood pressure and high cholesterol. ? Age. The risk increases with age. ? Stress. What are the signs or symptoms? High blood pressure may not cause symptoms. Very high blood pressure (hypertensive crisis) may cause: ? Headache. ? Fast or uneven heartbeats (palpitations). ? Shortness of breath. ? Nosebleed. ? Vomiting or feeling like you may vomit (nauseous). ? Changes in how you see. ? Very bad chest pain. ? Feeling dizzy. ? Seizures. How is this treated? ? This condition is treated by making healthy lifestyle changes, such as: ? Eating healthy foods. ? Exercising more. ? Drinking less alcohol. ? Your doctor may prescribe medicine if lifestyle changes do not help enough and if: ? Your top number is above 130. ? Your bottom number is above 80. ? Your personal target blood pressure may vary. Follow these instructions at home: Eating and drinking ? If told, follow the DASH eating plan. To follow this plan: ? Fill one half of your plate at each meal with fruits and vegetables. ? Fill one fourth of your plate at each meal with whole grains. Whole grains include whole-wheat pasta, brown rice, and whole-grain bread. ? Eat or drink low-fat dairy products, such as skim milk or low-fat yogurt. ? Fill one fourth of your plate at each meal with low-fat (lean) proteins. Low-fat proteins include fish, chicken without skin, eggs, beans, and tofu. ? Avoid fatty meat, cured and processed meat, or chicken with skin. ? Avoid pre-made or processed food. ? Limit the amount of salt in your diet to less than 1,500 mg each day. ? Do not drink alcohol if: ? Your doctor tells you not to drink. ? You are , may be , or are planning to become . ? If you drink alcohol: ? Limit how much you have to: ? 0?1 drink a day for women. ? 0?2 drinks a day for men. ? Know how much alcohol is in your drink. In the [place] one drink equals one 12 oz bottle of beer (355 mL), one 5 oz glass of wine (148 mL), or one 1? oz glass of hard liquor (44 mL). Lifestyle ? Work with your doctor to stay at a healthy weight or to lose weight. Ask your doctor what the best weight is for you. ? Get at least 30 minutes of exercise that causes your heart to beat faster (aerobic exercise) most days of the week. This may include walking, swimming, or biking. ? Get at least 30 minutes of exercise that strengthens your muscles (resistance exercise) at least 3 days a week. This may include lifting weights or doing Pilates. ? Do not smoke or use any products that contain nicotine or tobacco. If you need help quitting, ask your doctor. ? Check your blood pressure at home as told by your doctor. ? Keep all follow-up visits. Medicines ? Take [id number]-chlivmh and prescription medicines only as told by your doctor. Follow directions carefully. ? Do not skip doses of blood pressure medicine. The medicine does not work as well if you skip doses. Skipping doses also puts you at risk for problems. ? Ask your doctor about side effects or reactions to medicines that you should watch for. Contact a doctor if: ? You think you are having a reaction to the medicine you are taking. ? You have headaches that keep coming back. ? You feel dizzy. ? You have swelling in your ankles. ? You have trouble with your vision. Get help right away if: ? You get a very bad headache. ? You start to feel mixed up (confused). ? You feel weak or numb. ? You feel faint. ? You have very bad pain in your: ? Chest. ? Belly (abdomen). ? You vomit more than once. ? You have trouble breathing. These symptoms may be an e (more content not included)... [facility] Evaluation note Note Date & Type Note Facility Evaluation note Diagnosis Recurrent seizures (HCC)- Primary Other forms of epilepsy and recurrent seizures without mention of intractable epilepsy documented in this encounter [facility] Evaluation note Note Date & Type Note Facility Evaluation note Diagnosis Onset Date Acute renal failure acute Cannabinoid hyperemesis syndrome acute Cyclical vomiting acute End stage renal disease acut e Hypertension acute Polycystic kidney disease ac terri UTI (urinary tract infection) acute Vomiting acute [facility] Work Phone: Evaluation note Note Date & Type Note Facility Evaluation note No assessment information availa ble [facility] Work Phone: Summary Purpose Family History No Family History Records FoundNo Family History Records FoundNo Family History Records FoundNo Family History Records Found Advance Directives No Advanced Directives Records Found Advance Directive Response Recorded Date/ Time Advance Directives No December 8:08pm Chief Complaint and Reason for Visit Chief Complaint Physician sent ESRD Reason for Visit Acute renal failure Cannabinoid hyperemesis syndrome Cyclical vomiting End stage renal disease Hypertension Polycystic kidney disease UTI (urinary tract infection) Vomiting Chief Complaint Physician sent ESRD transient pt Chief Complaint Physician sent ESRD transient pt abd distension Chief Complaint Physician sent ESRD transient pt abd distension z01.818 n18.4 Additional Source Comments INFORMATION SOURCE (unrecogn ized section and content) DATE CREATED AUTHOR 04/01/2022 [facility] DATE CREATED AUTHOR AUTHOR'S ORGANIZ ATION 02/16/2023 [facility] DATE CREATED AUTHOR AUTHOR'S ORGANIZ ATION 02/20/2023 [facility] DATE CREATED AUTHOR AUTHOR'S ORGANIZ ATION 03/16/2023 [facility] Reason for Visit (unrecogniz ed section and content) Reason Comments Seizures Care Teams (unrecognized sec tion and content) Team Status: Active Member Role Status Dates Delvis Duncan DO Primary Care Provider Active Team Status: Inactive Member Role Status Erik Duncan DO Primary Care Provider Active Gisselle Kaur MD Emergency Provider Active Tremayne Allison DO Admit Provider Active Jai Banuelos MD Attending Provider Active Keaton Carrasco MD Other Provider Active Genet Arambula MD Other Provider Active Tavo Bundy MD Other Provider Active Team Status: Inactive Member Role Status Erik Duncan DO Primary Care Provider Active Seven Smith MD Attending Provider Active Team Status: Inactive Member Role Status Erik Duncan DO Primary Care Provider Active Seven Smith MD Attending Provider, Referring Provide r Active Team Status: Active Member Role Status Erik Duncan DO Primary Care Provider Active Gisselle Kaur MD Emergency Provider Active Tremayne Allison DO Admit Provider Active Jai Banuelos MD Attending Provider Active Genet Arambula MD Other Provider Active Tavo Bundy MD Other Provider Active Keaton Carrasco MD Other Provider Active Team Status: Inactive Member Role Status Dates Delvis Duncan DO Primary Care Provider Active Start: January 13, 2023 End: January 16, 2023 Gisselle Kaur MD Emergency Provider Active Star t: January 13, 2023 End: January 16, 2023 Tremayne Allison DO Admit Provider Active Star t: January 13, 2023 End: January 16, 2023 Jai Banuelos MD Attending Provider Active St art: January 13, 2023 End: January 16, 2023 Keaton Carrasco MD Other Provider Active Start: January 13, 2023 End: January 16, 2023 Genet Arambula MD Other Provider Active Start: Dec End: January 16, 2023 Tavo Bundy MD Other Provider Active Start: [email or web address] End: January 16, 2023 Team Status: Inactive Member Role Status Dates Delvis Duncan DO Primary Care Provider Active Start: January 15, 2023 End: January 15, 2023 Seven Smith MD Attending Provider, Referring Provider Active Start: January 15, 2023 End: January 15, 2023 Team Status: Inactive Member Role Status Dates Delvis Duncan DO Primary Care Provider Active Start: February 18, 2023 End: February 18, 2023 Seven Smith MD Attending Provider Active Start : February 18, 2023 End: February 18, 2023 Team Status: Inactive Member Role Status Dates Delvis Duncan DO Primary Care Provider Active Start: February 28, 2023 End: February 28, 2023 Seven Smith MD Attending Provider Active Start : February 28, 2023 End: February 28, 2023 Team Status: Inactive Member Role Status Dates Delvis Duncan DO Primary Care Provider Active Start: March 06, 2023 End: March 06, 2023 Tavo Bundy MD Attending Provider Active Star t: March 06, 2023 End: March 06, 2023 FOR RECORDS PERTAINING TO PATIENTS WHO ARE OR HAVE BEEN ENROLLED IN A CHEMICAL DEPENDENCY/SUBSTANCEABUSE PROGRAM, SOME INFORMATION MAY BE OMITTED. This clinical summary was aggregated from multiple sources. Caution should be exercised in using it in the provision of clinical care. This summary normalizes information from multiple sources, and as a consequence, information in this document may materially change the coding, format and clinical context of patient data. In addition, data may be omitted in some cases. CLINICAL DECISIONS SHOULD BE BASED ON THE PRIMARY CLINICAL RECORDS. [facility] [employer], [facility]. provides no warranty or guarantee of the accuracy or completeness of information in this document.
[2023-03-28 13:45] LABS: Potassium 5.4 mmol/L (3.5-5.1)
== END 2023-03-28 13:25 | disposition home or self-care (01) ==
LOC: LAB 13:24
PROVIDERS: Visit Provider Internal Medicine
DX: E87.5 Hyperkalemia (principal)
CPT/HCPCS: 36415; 84132

== ENCOUNTER 2024-07-23 13:25 | Outpatient (REF) | payer MEDICARE, SELFPAY ==
--- OUTSIDE RECORDS SUMMARY | 2024-04-13 07:30 | XMS_ITS ---
Author Organization [facility] in [place] Address [address] [place] [address] Care Team Providers Care Refining Engineer Name Role Phone Carie Carreon Primary Care Provider Allergies No Known Allergies REASON FOR VISIT [...] 04/13/2024 Encounters Encounter Location Date Provider Diagnosis [facility] [address] [place] [address] 04/13/2024 Carie Carreon COPD (chronic obstructive pulmonary [...] Next Appt Details Follow Up: prn,3 Months, Harrison son: Progress Notes * Markie RUSSELLOB:1960 ( 63 yo F)Acc No.[id number]:04/13/2024 New Patient Patient: Ros SON Provider: Avery Carreon ([facility]), DRILLING ENGINEERING MANAGER :1960 A ge:63 Y S ex:Female Date:04/13/2024 Address:[address] [place], [place] [address] [id number] Check In:11:26 AM ESTCheck O ut:11:59 AM EST Subjective: * Chief Complaints: * 1 . New patient, patient is concerned about copd and shortness of breath. * HPI: G eneral: breathing issues albuterol nebulizer and inhaler using all time still smoking increasingly SOB dialysis 3 x weeks since 2022 lives alone worked at [employer] [facility] [employer] does not want to take BP med. [...] * Electronically signed by Sudha Carreon , TRAVEL TICKETING REVIEWER, LEAN CONSULTANT.DRILLING ENGINEERING MANAGER.[id number] on 04/15/2024 at 12:43 PM EST Sign off status: Completed Visit Status: C HK (Check Out) true * Provider: Avery Carreon ([facility]), DRILLING ENGINEERING MANAGER Date: 0 04/13/2024 Generated for Francisi lorene/Jorge/eTransmitting on: 0 07/23/2024 01:29 PM EDT History and Physical Notes * HPI (History of Present Illness) Category Sub-Category Detail Notes Category Not es General breathing issues albuterol nebulizer and inhaler using all time still smoking increasingly SOB dialysis 3 x weeks since 2022 [facility] does not want to take BP [...]
--- OUTSIDE RECORDS SUMMARY | 2024-07-23 13:30 | XMS_ITS | Patient Health Record ---
Author Organization [facility] in [place] Address [address] [place] [address] Care Team Providers Care Skiing Instructor Name Role Phone Carie Carreon Primary Care Provider Allergies No Known Allergies Reason For Referral No Information Medications Medication SIG (Take, Route, Frequency, Duration) [...] pulmonary disease) (J44.9) Active confirmed Vital Signs Blood pressure diastolic 88 mm Hg 04/13/2024 Height 60 in 04/13/2024 Blood pressure systolic 134 mm Hg 04/13/2024 Weight 119 lbs 04/13/2024 BMI 23.24 kg/m2 04/13/2024 Encounters Encounter Location Date Provider Diagnosis [facility] ([place], [place]) [address] [place] [address] 04/13/2024 Carie Lauri COPD (chronic obstructive pulmonary disease) J44.9 Assessments Encounter Date Diagnosis (ICD Code) Assessment Notes Treatment Notes Treatment Clinical Notes Section Notes 04/13/2024 COPD (chronic obstructive pulmonary disease) (ICD-10 - J44.9) does not want to quit smoking 04/13/2024 Other refusing labs, preventive testing Plan Of Treatment No Information Insurance Providers Payer Name Payer Address Payer Phone Subscriber Number Group Number Insured Name Patient Relationship to Insured Coverage Start Date Coverage End Date [place] [address] [address] [id number] Ros Aleman Self - patient is the insured Medical (General) History Medical History History ICD Code polystic kidneys stage 4 kidney failure copd
[2024-07-23 13:46] LABS: Potassium 5.4 mmol/L (3.5-5.1)
== END 2024-07-23 13:26 | disposition home or self-care (01) ==
LOC: LAB 13:25
PROVIDERS: Visit Provider Internal Medicine Nephrology
DX: E87.5 Hyperkalemia (principal)
CPT/HCPCS: 36415; 84132

== ENCOUNTER 2024-09-24 14:05 | Outpatient (REF) | payer MEDICARE, SELFPAY ==
--- OUTSIDE RECORDS SUMMARY | 2024-04-13 07:30 | XMS_ITS ---
Author Organization [facility] in [place] Address [address] [place] [address] Care Team Providers Care Airplane Charter Clerk Name Role Phone Carie Carreon Primary Care Provider [phone] Allergies No Known Allergies REASON FOR VISIT new patient, patient is concerned about copd and shortness of breath Medications Medication SIG (Take, Route, Frequency, Duration) Notes Start Date End Date Status Albuterol Sulfate (2.5 MG/3ML) 0.083% INHALE 1 VIAL VIA NEBULIZER EVERY 4 TO 6 HOURS NEEDED FOR SHORTNESS OF BREATH OR WHEEZING Inhalation for 8 days Active Albuterol Sulfate HFA 108 (90 Base) MCG/ACT INHALE 1 - 2 PUFFS BY MOUTH EVERY 8 HOURS NEEDED FOR SHORTNESS OF BREATH OR WHEEZING Inhalation for 30 days Active Azithromycin 250 MG as directed Orally daily for 5 days take 2 tablets po on first day than 1 tablet po days 2-5 04/13/2024 Active Stiolto Respimat 2.5-2.5 MCG/ACT 2 puffs Inhalation Once a day for 30 days 04/13/2024 Active Sevelamer Carbonate 800 MG 1 tablet with meals Orally Three times a day Active Social History Tobacco Use: Social History Observation Description Date Details (start date - stop date) Current Smoker 03/20/1971 - NA Tobacco Control (Standard) Question Answer Notes Tobacco use: Current smoker When did you start smoking? 03/20/1971 How often do you smoke cigarettes? Every day How many cigarettes a day do you smoke? 11-20 AUDIT-C (Standard) Question Answer Notes Did you have a drink contain ing alcohol in the past year? Yes How often did you have six o r more drinks on one occasion in the past year? Less than monthly (1 point) How many drinks did you have on a typical day when you were drinking in the past year? 1 or 2 drinks (0 point) How often did you have a dri nk containing alcohol in the past year? Monthly or less (1 point) Points 2 Interpretation Negative Problems Problem Type SNOMED Code ICD Code Onset Dates Problem Status W/U Status Risk Notes Problem COPD (chronic obstructive pulmonary disease) (J44.9) Active confirmed Vital Signs Weight 119 lbs 04/13/2024 Height 60 in 04/13/2024 Blood pressure systolic 134 mm Hg 04/13/19 Blood pressure diastolic 88 mm Hg 025 BMI 23.24 kg/m2 04/13/2024 Encounters Encounter Location Date Provider Diagnosis [facility] [address] [place] [address] 04/13/2024 Carie Carreon COPD (chronic obstructive pulmonary disease) J44.9 Assessments Encounter Date Diagnosis (ICD Code) Assessment Notes Treatment Notes Treatment Clinical Notes Section Notes 04/13/2024 COPD (chronic obstructive pulmonary disease) (ICD-10 - J44.9) does not want to quit smoking 04/13/2024 Other refusing labs, preventive testing Plan Of Treatment Medication Medication Name Sig Start Date Stop Date Notes Albuterol Sulfate (2.5 MG/3ML) 0.083% INHALE 1 VIAL VIA NEBULIZER EVERY 4 TO 6 HOURS NEEDED FOR SHORTNESS OF BREATH OR WHEEZING Inhalation for 8 days Albuterol Sulfate HFA 108 (90 Base) MCG/ACT INHALE 1 - 2 PUFFS BY MOUTH EVERY 8 HOURS NEEDED FOR SHORTNESS OF BREATH OR WHEEZING Inhalation for 30 days Azithromycin 250 MG as directed Orally daily for 5 days 04/13/2024 take 2 tablets po on first day than 1 tablet po days 2-5 Stiolto Respimat 2.5-2.5 MCG/ACT 2 puffs Inhalation Once a day for 30 days 04/13/2024 Treatment Notes Assessment Notes COPD (chronic obstructive pulmonary dise ase) does not want to quit smoking Other refusing labs, preve ntive testing Next Appt Details Follow Up: prn,3 Months, Kaitlin son: Progress Notes * Markie RUSSELLOB:1960 ( 63 yo F)Acc No.[id number]:04/13/2024 New Patient Patient: Ros SON Provider: Avery Carreon ([facility]), HOT PUNCH PRESS OPERATOR :1960 A ge:63 Y S ex:Female Date:04/13/2024 Address:[address] [place], [place] [address] [id number] Check In:11:26 AM ESTCheck O ut:11:59 AM EST Subjective: * Chief Complaints: * 1 . New patient, patient is concerned about copd and shortness of breath. * HPI: G eneral: breathing issues albuterol nebulizer and inhaler using all time still smoking increasingly SOB dialysis 3 x weeks since 2022 lives alone worked at [facility] [employer] does not want to take BP med. * ROS: G eneral/Constitutional: Fever d enies. H eadache d enies. W eight loss?denies. O phthalmologic: Discharge d enies. E ye Pain d enies. I tching and redness d enies. E NT: Nasal discharge d enies. N nurys congestion d enies.?Sore throat d enies. C ardiovascular: Chest tightness/ heavy pressure d enies. R apid heart rate d enies. S welling of extremities d enies. C hest pain d enies. ? R espiratory: Productive cough d enies. C hest pain d enies. C ough d enies. S hortness of breath a dmits, with activity, getting worse, chronic. W heezing d enies. G astrointestinal: Abdominal pain d enies. C onstipation d enies. D ecreased appetite d enies. D iarrhea d enies. N ausea d enies. V omiting?denies. G enitourinary: Urinary incontinence d enies. P ainful urination d enies. M usculoskeletal: Back pain d enies. N loni pain d enies. M uscle aches d enies. S kin: Rash d enies. S kin lesion(s) d enies. ? * Active Problem List J44.9 COPD (chronic obstru ctive pulmonary disease) Modified On:04/13/2024W/U Status:confirmed * Medical History: P olystic kidneys stage 4 kidney failure, Copd. * Family History: F ather: , diagnosed with Unspecified heart disease. M other: , diagnosed with Unspecified heart disease. B malenaer(s): alive. S ister(s): alive. 2 brother(s) , 2 sister(s) . . * Social History: T obacco Use: T obacco Control (Standard) T obacco use: C urrent smoker W hen did you start smoking? 0 03/20/1971 H ow often do you smoke cigarettes? E very day H ow many cigarettes a day do you smoke? 1 1-20 D rug/Alcohol: A ESTEVAN-C (Standard) D id you have a drink containing alcohol in the past year? Y es H ow often did you have six or more drinks on one occasion in the past year? L ess than monthly (1 point) H ow many drinks did you have on a typical day when you were drinking in the past year? 1 or 2 drinks (0 point) H ow often did you have a drink containing alcohol in the past year? M onthly or less (1 point) P oints 2 I nterpretation N egative * Medications: T aking Albuterol Sulfate (2.5 MG/3ML) 0.083% Nebulization Solution INHALE 1 VIAL VIA NEBULIZER EVERY 4 TO 6 HOURS NEEDED FOR SHORTNESS OF BREATH OR WHEEZING Inhalation , Taking Albuterol Sulfate HFA 108 (90 Base) MCG/ACT Aerosol Solution INHALE 1 - 2 PUFFS BY MOUTH EVERY 8 HOURS NEEDED FOR SHORTNESS OF BREATH OR WHEEZING Inhalation , Taking Sevelamer Carbonate 800 MG Tablet 1 tablet with meals Orally Three times a day , Medication List reviewed and reconciled with the patient * Allergies: N .K.D.A. Objective: * Vitals: W t:119lbs, Ht: 60 in, BP:134/88mm Hg, BMI:23.24Index, Ht-cm: 152.4 cm, Wt-k.98 kg. * Examination: G eneral Examinations: GENERAL APPEARANCE: a lert and oriented, i n no acute distress. EYES: c onjunctiva normal, sclera non-icteric. NOSE: n ormal external appearance. LUNGS: d iminished breath sounds throughout, scattered wheezes throughout. CARDIO: r egular rate and rhythm, S1, S2 normal, fistula right lower arm positive thrill and bruit. ABDOMEN: s oft, nontender. MUSCULOSKELETAL: G ait and station normal. SKIN: w arm and dry. Assessment: * Assessment: 1. C OPD (chronic obstructive pulmonary disease) - J44.9 (Primary) Plan: * Treatment: 2. O thers Notes: refusing labs, preventive testing * Preventive Medicine: Screenings/Counseling: T OBACCO ACTION PLAN Patient counselled on the dangers of tobacco use and urged to quit. . * Follow Up: p rn,3 Months * * Electronically signed by Sudha Carreon , RN DOCUMENT IMPROVEMENT SPECIALIST, BREASTFEEDING PEER COUNSELOR.HOT PUNCH PRESS OPERATOR.[id number] on 04/15/2024 at 12:43 PM EST Sign off status: Completed Visit Status: C HK (Check Out) true * Provider: Avery Carreon ([facility]), HOT PUNCH PRESS OPERATOR Date: 0 04/13/2024 Generated for Francisi lorene/Jorge/eTransmitting on: 0 09/24/2024 02:09 PM EDT History and Physical Notes * HPI (History of Present Illness) Category Sub-Category Detail Notes Category Not es General breathing issues albuterol nebulizer and inhaler using all time still smoking increasingly SOB dialysis 3 x weeks since 2022 lives alone [facility] does not want to take BP med Examination Category Sub-Category Detail Notes Category Not es General Examinations GENERAL APPEARANCE: alert a nd oriented, in no acute distress EYES: conjunctiva normal, sclera non-icteric EARS: NOSE: normal external appe arance THROAT: CARDIO: regular rate and rhy thm, S1, S2 normal, fistula right lower arm positive thrill and bruit LUNGS: diminished breath so unds throughout, scattered wheezes throughout ABDOMEN: soft, nontender SKIN: warm and dry BACK: MUSCULOSKELETAL: Gait and station nor mal LYMPH NODES:
--- OUTSIDE RECORDS SUMMARY | 2024-09-24 14:09 | XMS_ITS | Patient Health Record ---
Author Organization [facility] in [place] Address [address] [place] [address] Care Team Providers Care Pony Ride Operator Name Role Phone Carie Carreon Primary Care [...] 04/13/2024 Encounters Encounter Location Date Provider Diagnosis [facility] [address] [place] [address] 04/13/2024 Carie Lauri COPD (chronic obstructive pulmonary [...] End Date [place] [address] [place] [address] [id number] Ros Aleman Self - patient is the insured Medical (General) History Medical History History ICD Code polystic kidneys stage 4 kidney failure copd
--- OUTSIDE RECORDS SUMMARY | 2024-09-24 14:09 | XMS_ITS | Patient Health Record ---
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 Name Role Phone Olvin Moffett Primary Care Provider [phone] Allergies Allergen (clinical drug ingredient) Drug/Non Drug Allergy documented on EMR Reaction Allergy Type Onset Date Status ramipril Altace Unknown Drug Allergy Active Reason For Referral No Information Social History Tobacco Use: Social History Observation Description Date Details (start date - stop date) Current Smoker 02/17/1974 - NA Sex Assigned At : Social History Observation Description Sex Assigned At Female Tobacco Use/Smoking Question Answer Notes Tobacco use: current smoker patient enter ed data Are you interested in quitting? Thinking about q uitting patient entered data How many cigarettes a day do you smoke? 11-20 patient entered data How soon after you wake up d o you smoke your first cigarette? 31-60 minutes patient entered data How often do you smoke cigarettes? every day patient entered data When did you start smoking? 02/17/1974 p atient entered data CAGE-AID Questionnaire (2018 Edition) Question Answer Notes Have you ever felt that you ought to cut down on your drinking or drug use? No patient entered data Have people annoyed you by c riticizing your drinking or drug use? No patient entered data Have you ever felt bad or gu ilty about your drinking or drug use? No patient entered data Have you ever had a drink or used drugs first thing in the morning to steady your nerves or to get rid of a hangover? No patient entered data CAGE-AID Score 0 Interpretation Negative PRAPARE Question Answer Notes Date Completed/Updated: 10/24/2022 zaira nt entered data What is your current housing situation? I have housing patient entered data Are you worried about losing your housing? Yes patient entered data What is the highest level of school that you have finished? 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 Check all that apply Food,Clothing,Utilities Has lack of transportation k ept you from medical appointments, meetings, work or from getting things needed for daily living? No How often do you see or talk to people that you care about and feel close to? (For example: talking to friends on the phone, visiting friends or family, going to mandaeism or club meetings) More than 5 times a week patient entered data How stressed are you? Stress is when someone feels tense, nervous, anxious, or can't sleep at night because their mind is troubled A little bit patient entered data In the past year have you sp ent more than 2 nights in a row in a half-way, halfway, nursing home center, or juvenile correctional facility? No patient entered [place] a Are you a refugee? No patient en tered data What country are you from? [place] audelia edwards entered data Do you feel physically and emotionally safe where you currently live? Yes patient entered data In the past year, have you b een afraid of your partner or ex-partner? No patient entered data PRAPARE Score: 6 Problems Problem Type SNOMED Code ICD Code Onset Dates Problem Status W/U Status Risk Notes Problem Hypertension (89251764) Hypertension (I10) Active confirmed Problem Polycystic kidney disease (38091357) Polycystic kidney disease (Q61.3) Active confirmed Plan Of Treatment No Information Insurance Providers Payer Name Payer Address Payer Phone Subscriber Number Group Number Insured Name Patient Relationship to Insured Coverage Start Date Coverage End Date Elizabeth Ferrisbs [address] [place], [place] [id number] Ros Aleman Self - patient is the insured 01/01/202 3 Medical (General) History Medical History History ICD Code Polycystic kidney disease Q61.3 Stroke I63.9 Hypertension I10
[2024-09-24 14:24] LABS: Potassium 5.4 mmol/L (3.5-5.1)
== END 2024-09-24 14:06 | disposition home or self-care (01) ==
LOC: LAB 14:05
PROVIDERS: Visit Provider Internal Medicine Nephrology
DX: E87.5 Hyperkalemia (principal)
CPT/HCPCS: 36415; 84132

== ENCOUNTER 2024-10-08 13:18 | Outpatient (REF) | payer MEDICARE, SELFPAY ==
--- OUTSIDE RECORDS SUMMARY | 2024-10-08 13:28 | XMS_ITS | CCD ---
Author Organization [facility] Care Team Providers Care Monitor And Storage Bin Tender Name Role Phone HOUSE, DR DRAKE Admitting Unavailable HOUSE, DR DRAKE Attending Unavailable SEVEN SMITH Primary Care Unavailable HOUSE, DR DRAKE Consulting Unavailable Unavailable Primary Care Provider Unavailabl e DO Delvis Duncan Primary Care Provider MD Roni Kaur Emergency Provider [phone] DO Tremayne Allison Admit Provider [phone] MD Jai Banuelos Attending Provider MD Genet Arambula Other Provider MD Tavo Bundy Other Provider MD Keaton Carrasco Other Provider MD Seven Smith Attending Provider MD Seven Smith Referring Provider PROVIDER, UNKNOWN Attending Unavailable PROVIDER, UNKNOWN Admitting Unavailable MD Tavo Bundy Attending Provider [phone] MD Keaton Carrasco Attending Provider DO Delvis Duncan Primary Care Provider MD Seven Smith Attending Provider MD Tavo Bundy Attending Provider MD Keaton Carrasco Attending Provider DO Delvis Duncan Primary Care Provider DO Delvis Duncan Primary Care Provider MD Keaton Carrasco Attending Provider GIOVANNA Beavers Emergency Provider DO Delvis Duncan Primary Care Provider MD Keaton Carrasco Attending Provider Kamran Delvis Primary Care Provider [phone] Fidel Raines MD Attending Provider Tavo Bundy MD Attending Provider [phone] Lisette Pisano Attending Provider Lisette Albright Attending Unavailable Lisette Albright Admitting Unavailable Delvis Duncan Primary Care Unavailable Allergies Allergy Classification Reported Allergen(s) Allergy Type Date of Onset Reaction(s) Facility (1 source) Ramipril Drug Allergy 11-14-2014 [facility] (4 sources) Angiotensin Converting Enzyme (Patric) Inhibitors; Translations: [PATRIC Inhibitors] Allergy to substance 01-13-2023 [facility] Medications Current Medications Medication Drug Class(es) Dates Sig (Normalized) Sig (Original) [id number] actuat albuterol 0.09 mg/actuat metered dose inhaler (5 sources) beta2-Adrenergic Agonist Start: 02-24-2024 take 2.5 mg by inhalation every four to six hours as needed for wheezing Start: 02-24-2024 amLODIPine 5 mg oral tablet (3 sources) Dihydropyridine Calcium Channel Edward Start: 02-24-2024 B Complex-Vitamin C-Folic Acid (Nandini-Che) 0.8 mg tablet (11 sources) Start: 04-01-2023 take 1 tablet by mouth once daily Start: 04-01-2023 take 1 tablet by anish th once daily B Complex-Vitamin C-Folic Acid (Nandini-Che) 0.8 mg tablet Active 1 TAB PO Daily April 01, 2023 1:00am Start: 04-01-2023 take 1 tablet by anish th once daily B Complex-Vitamin C-Folic Acid (Nandini-Che) 0.8 mg tablet Active 1 TAB PO Daily April 01, 2023 12:00am predniSONE 20 mg oral tablet (2 sources) Start: 02-24-2024 take 2 tablets by mo ut once daily sevelamer carbonate 800 mg oral tablet (11 sources) Phosphate Binder Start: 04-01-2023 take 4 tablets by mo uth at mealtime Start: 04-01-2023 take 3200 mg by mouth at mealt fadia Sevelamer Carbonate Active 3200 MG PO .meals April 01, 2023 1:00am Start: 04-01-2023 take 800 mg by mouth at mealti me Sevelamer Carbonate Active 800 MG PO .meals April 01, 2023 1:00am Start: 04-01-2023 Sevelamer Carb ha Active MG TABLET April 01, 2023 1:00am Completed/Discontinued Medications Medication Drug Class(es) Dates Sig (Normalized) Sig (Original) 24 hr nicotine 0.875 mg/hr transdermal system (14 sources) Cholinergic Nicotinic Agonist Start: 01-16-2023 End: 05-08-2023 apply 1 dose transdermal route every twenty-four hours Nicotine 21 mg/24 hr Patch 24 Hour Discontinued 1 PATCH TRANSDERML Daily January 16, 2023 1:00am May 08, 2023 11:04am Start: 01-16-2023 End: 05-08-2023 apply 1 dose transdermal route once daily Nicotine Discontinued 1 PATCH TRANSDERML Daily January 16, 2023 1:00am May 08, 2023 11:04am Problems Problem Classification Problem Date Documented Date Episodic/Chronic Acute and unspecified renal failure (16 sources) Acute renal failure syndrome; Translations: [Acute kidney failure, unspecified] 01-13-2023 Episodic Comment on above: Problem List clean-u p per request of Phys. [facility] Chronic kidney disease (20 sources) End-stage renal disease; Translations: [End stage renal disease] 01-14-2023 Chronic Comment on above: Problem List clean-u p per request of Phys. [facility] Chronic obstructive pulmonary disease and bronchiectasis (2 sources) Acute exacerbation of chronic obstructive airways disease; Translations: [Chronic obstructive pulmonary disease with (acute) exacerbation] 02-24-2024 Chronic Complication of device; implant or graft (19 sources) Arteriovenous fistula stenosis; Translations: [Stenosis of other vascular prosthetic devices, implants and grafts, initial encounter] 06-05-2023 Chronic Epilepsy; convulsions (1 source) Recurrent seizure; Translations: [Epilepsy, unspecified, not intractable, without status epilepticus] 01-02-2023 Chronic Essential hypertension (16 sources) Hypertensive disorder; Translations: [Essential (primary) hypertension] 01-14-2023 Chronic Comment on above: Problem List clean-u p per request of Phys. EHR Cmte Genitourinary congenital anomalies (16 sources) Multiple renal cysts; Translations: [Polycystic kidney, unspecified] 01-14-2023 Chronic Comment on above: [place] [address] [place] clean-up per request of Phys. EHR Cmte Nausea and vomiting (20 sources) Adverse reaction to cannabis; Translations: [Nausea with vomiting, unspecified] 01-15-2023 Episodic Comment on above: Problem List clean-u p per request of Phys. EHR Cmte Other circulatory disease (10 sources) Arteriovenous fistula; Translations: [Arteriovenous fistula, acquired] 05-08-2023 Chronic Other circulatory disease (5 sources) Arteriovenous fistula, acquired; Translations: [Arteriovenous fistula, acquired] 05-08-2023 Chronic Other disorders of stomach and duodenum (15 sources) Cyclical vomiting syndrome; Translations: [Cyclical vomiting syndrome unrelated to migraine] 01-13-2023 Episodic Comment on above: Problem List clean-u p per request of Phys. EHR Cmte Other disorders of stomach and duodenum (1 source) Cyclical vomiting syndrome unrelated to migraine; Translations: [Persistent vomiting] 01-13-2023 Episodic Other non-traumatic joint disorders (4 sources) Other specified arthritis, unspecified site; Translations: [OTHER SPECIFIED ARTHRITIS UNS SITE] Onset: 03-28-2022 Chronic Substance-related disorders (3 sources) Smoker; Translations: [Nicotine dependence, unspecified, uncomplicated] 08-26-2023 Chronic Urinary tract infections (16 sources) Urinary tract infectious disease; Translations: [Urinary tract infection, site not specified] 01-13-2023 Episodic Comment on above: Problem List clean-u p per request of Phys. EHR Cmte Results Test Name Value Interpretation Reference Range Facility AV Fistula 09-28-[address] [facility] [address] [place] [address] Ultrasound Report Signed Patient: Ros Aleman MR#: [id number] 6 : 1960 Acct:[id number] Age/Sex: 64 / F ADM Date: 09/28/24 Loc: [facility] Room: Type: [facility] Attending Dr: Lisette Albright PRN PHYSICAL THERAPIST-C Ordering Provider: Lisette Albright APRN Date of Service: 09/28/24 US/US AV Fistula: N18.6 Copies to: Lisette Albright APRN Duplex examination right Amberly fistula Indication for study: Elevated venous pressures in dialysis PROCEDURE: Color-flow duplex scanning is used to interrogate the patient's right Amberly fistula. Comparison is made with prior study July 2023. On today's examination flows are similar in range between 711 100 cc/m. Overall size of the fistula is adequate at between 8 and 20 mm. The fistula is close to the skin and no obstruction is noted. US/US AV Fistula IMPRESSION: Patent right arm fistula without focal obstruction. Flows seem adequate for dialysis. Impression dictated by: Erick Spicer M.D. 09/28/2024 1:03 PM Dictation Location: [place] [address] Tech: Tierra Rivera Transcribed By: TAE 09/28/24 1303 Dictated By: Erick Spicer MD 09/28/24 1302 Signed By: 09/28/24 1303 Normal [facility] Laboratory - Chemistry and C hemistry - challengeOrdered By: Tavo Bundy on 09-24-2024 Potassium [Moles/Vol] 5.4 mmol/L High 3.5-5.1 [facility] Laboratory - Chemistry and C hemistry - challengeon 07-23-2024 Potassium [Moles/Vol] 5.4 mmol/L High 3.5-5.1 [facility] 02-25-2024 Outside Records [id number] 606#1.00[facility] Outside [facility] 08-28-2023 Outside Records [id number]#1.00[facility] 08-12-2023 Outside Records [id number] 0570#1.00[facility] 07-07-2023 Outside Records [id number]23 Outside Records [id number][facility] 06-09-2023 Outside Records [id number][facility] 05-08-2023 Outside Records [id number][facility] Other Lab [facility] Lab - Other Lab Results [id number] 497[facility] 04-03-2023 Outside Records [id number] 287[facility] - Other Lab Results [id number]#1.00OTGTIFF [Electronically Signed on: 04/02/2023 16:44 EST] ____ DELVIS DUNCAN DO [Electronically Signed on: 04/09/2023 10:21 EST] ____ Maria Esther Boyce [Verified on: 04/02/2023 16:44 EST] ____ DELVIS DUNCAN DO [Transcribed on: 04/02/2023 16:12 EST] [facility] Outside [facility] 04-02-2023 Outside Records [id number]#1.00[facility] Amphetamine Screen Ql (U)Ord ered By: Odilon Chin on 04-01-2023 Amphetamines Ql (U) Negative Negative [facility] Barbiturates [Presence] in U rine by Screen methodOrdered By: Odilon Chin on 04-01-2023 Barbiturates Screen Ql (U) Negative Negative [facility] Basophils Auto (Bld) [#/Vol] Ordered By: Odilon Chin on 04-01-2023 Basophils (Bld) [#/Vol] 0.1 10*3/uL 0.0-0.2 [facility] Basophils/100 WBC Auto (Bld) Ordered By: Odilon Chin on 04-01-2023 Basophils/100 WBC (Bld) 1.1 % . F [facility] Benzodiazepines Screen Ql (U )Ordered By: Odilon Chin on 04-01-2023 Benzodiazepines Ql (U) Negative Negative [facility] Benzoylecgonine [Presence] i n Urine by Screen methodOrdered By: Odilon Chin on 04-01-2023 Benzoylecgonine Screen Ql (U) Negative Negative [facility] Calcium [Mass/volume] in Ser um or PlasmaOrdered By: Odilon Chin on 04-01-2023 Calcium [Mass/Vol] 9.3 mg/dL 8.6-10.3 [facility] Cannabinoids [Presence] in U rine by Screen methodOrdered By: Odilon Chin on 04-01-2023 Cannabinoids Screen Ql (U) Positive Negative [facility] Comment on above: These are unconfirme d results and should not be used for legal purposes. Drug Cut-Off Concentration: AMPH 1000 ng/mL ARMINDA 200 ng/mL ASHANTI 200 ng/mL COCM 300 ng/mL OP 300 ng/mL PCP 25 ng/mL THC 20 ng/mL Carbon dioxide, total [Moles /volume] in Serum or PlasmaOrdered By: Odilon Chin on 04-01-2023 CO2 [Moles/Vol] 26.3 mmol/L 21.0-31.0 [facility] Chloride [Moles/volume] in S martin or PlasmaOrdered By: Odilon Chin on 04-01-2023 Chloride [Moles/Vol] 94 mmol/L 98-107 [facility] Creatinine [Mass/volume] in Serum or PlasmaOrdered By: Odilon Chin on 04-01-2023 Creatinine [Mass/Vol] 5.86 mg/dL 0.60-1.20 [facility] Eosinophils Auto (Bld) [#/Vo l]Ordered By: Odilon Chin on 04-01-2023 Eosinophils (Bld) [#/Vol] 0.1 10*3/uL 0.0-0.45 [facility] Eosinophils/100 WBC Auto (Bl d)Ordered By: Odilon Chin on 04-01-2023 Eosinophils/100 WBC (Bld) 1.8 % . [facility] Erythrocyte distribution wid th Auto (RBC) [Ratio]Ordered By: Odilon Chin on 04-01-2023 Erythrocyte distribution width (RBC) [Ratio] 15.6 % 11.9-15.3 [facility] Glucose [Mass/volume] in Ser um or PlasmaOrdered By: Odilon Chin on 04-01-2023 Glucose [Mass/Vol] 86 mg/dL 70-100 [facility] Comment on above: ADA recommended refe rence rangeRandom Glucose Reference Range is dependent on time and content of last meal. Glucose of more than 200 mg/dL in a nonstressed, ambulatory subject supports the diagnosis of Diabetes Mellitus. Hematocrit Auto (Bld) [Volum e fraction]Ordered By: Odilon Chin on 04-01-2023 Hematocrit (Bld) [Volume fraction] 41.8 % 34.0-46.4 [facility] Hemoglobin [Mass/volume] in BloodOrdered By: Odilon Chin on 04-01-2023 Hemoglobin (Bld) [Mass/Vol] 13.9 g/dL 11.8-15.4 [facility] Leukocytes [#/volume] correc doreen for nucleated erythrocytes in Blood by Automated counOrdered By: Odilon Chin on 04-01-2023 WBC corrected for nucl RBC Auto (Bld) [#/Vol] 7.5 10*3/uL 3.8-11.6 [facility] Lymphocytes Auto (Bld) [#/Vo l]Ordered By: Odilon Chin on 04-01-2023 Lymphocytes (Bld) [#/Vol] 1.8 10*3/uL 1.00-4.8 [facility] Lymphocytes/100 WBC Auto (Bl d)Ordered By: Odilon Chin on 04-01-2023 Lymphocytes/100 WBC (Bld) 23.6 % . [facility] MCH Auto (RBC) [Entitic mass ]Ordered By: Odilon Chin on 04-01-2023 MCH (RBC) [Entitic mass] 32.8 pg 24.7-34.3 [facility] MCHC Auto (RBC) [Mass/Vol]Or dered By: Odilon Chin on 04-01-2023 MCHC (RBC) [Mass/Vol] 33.3 g/dL 32.0-35.0 [facility] MCV Auto (RBC) [Entitic vol] Ordered By: Odilon Chin on 04-01-2023 MCV (RBC) [Entitic vol] 98.5 fL 80-100 [facility] Monocytes Auto (Bld) [#/Vol] Ordered By: Odilon Chin on 04-01-2023 Monocytes (Bld) [#/Vol] 0.6 10*3/uL 0.0-0.8 [facility] Monocytes/100 WBC Auto (Bld) Ordered By: Odilon Chin on 04-01-2023 Monocytes/100 WBC (Bld) 7.6 % . F [facility] Neutrophils Auto (Bld) [#/Vo l]Ordered By: Odilon Chin on 04-01-2023 Neutrophils (Bld) [#/Vol] 4.9 10*3/uL 1.8-7.7 [facility] Neutrophils/100 WBC Auto (Bl d)Ordered By: Odilon Chin on 04-01-2023 Neutrophils/100 WBC (Bld) 65.9 % . [facility] No Panel InformationOrdered By: Odilon Chin on 04-01-2023 Estimated GFR (CKD-EPI) 7.632 mL/Min [facility] Creatinine Clearance (Chem 7.15 [facility] Nucleated erythrocytes [Pres ence] in Blood by Automated countOrdered By: Odilon Chin on 04-01-2023 Nucleated RBC Auto Ql (Bld) 0.0 /100{WBC} 0-0.5 [facility] Opiates [Presence] in Urine by Screen methodOrdered By: Odilon Chin on 04-01-2023 Opiates Screen Ql (U) Negative Negative [facility] Phencyclidine Screen Ql (U)O rdered By: Odilon Chin on 04-01-2023 Phencyclidine Ql (U) Negative Negative [facility] Platelet mean volume Auto (B ld) [Entitic vol]Ordered By: Odilon Chin on 04-01-2023 Platelet mean volume (Bld) [Entitic vol] 7.6 fL 6.3-10.7 [facility] Platelets Auto (Bld) [#/Vol] Ordered By: Odilon Chin on 04-01-2023 Platelets (Bld) [#/Vol] 141 10*3/uL 150-450 [facility] Potassium [Moles/volume] in Serum or PlasmaOrdered By: Odilon Chin on 04-01-2023 Potassium [Moles/Vol] 4.7 mmol/L 3.5-5.1 [facility] RBC Auto (Bld) [#/Vol]Ordere d By: Odilon Chin on 04-01-2023 RBC (Bld) [#/Vol] 4.24 10*6/uL 3.60-5.00 [facility] Serum or plasma anion gap de terminationOrdered By: Odilon Chin on 04-01-2023 Anion gap [Moles/Vol] 20.4 mmol/L 6.0-15.0 [facility] Sodium [Moles/volume] in Ser um or PlasmaOrdered By: Odilon Chin on 04-01-2023 Sodium [Moles/Vol] 136 mmol/L 136-145 [facility] Urea nitrogen [Mass/volume] in Serum or PlasmaOrdered By: Odilon Chin on 04-01-2023 Urea nitrogen [Mass/Vol] 35 mg/dL 7-25 [facility] WBC Auto (Bld) [#/Vol]Ordere d By: Odilon Philjohn on 04-01-2023 WBC (Bld) [#/Vol] 7.5 10*3/uL 3.8-11.6 [facility] Calcium [Mass/volume] in Ser um or PlasmaOrdered By: Tremayne AriasAllison on 01-16-2023 Calcium [Mass/Vol] 9.2 mg/dL 8.6-10.3 [facility] Carbon dioxide, total [Moles /volume] in Serum or PlasmaOrdered By: Tremayne [place] on 01-16-2023 CO2 [Moles/Vol] 25.8 mmol/L 21.0-31.0 [facility] Chloride [Moles/volume] in S martin or PlasmaOrdered By: Tremayne AriasAllison on 01-16-2023 Chloride [Moles/Vol] 98 mmol/L 98-107 [facility] Creatinine [Mass/volume] in Serum or PlasmaOrdered By: Tremayne AriasAllison on 01-16-2023 Creatinine [Mass/Vol] 4.49 mg/dL 0.60-1.20 [facility] Comment on above: Delta: 5.08 on 01/15 Glucose [Mass/volume] in Ser um or PlasmaOrdered By: Tremayne Allison on 01-16-2023 Glucose [Mass/Vol] 93 mg/dL 70-100 [facility] Comment on above: ADA recommended refe rence rangeRandom Glucose Reference Range is dependent on time and content of last meal. Glucose of more than 200 mg/dL in a nonstressed, ambulatory subject supports the diagnosis of Diabetes Mellitus. No Panel InformationOrdered By: Tremayne AriasAllison on 01-16-2023 Estimated GFR (CKD-EPI) 10.505 mL/Min [facility] Creatinine Clearance (Chem 8.86 [facility] Potassium [Moles/volume] in Serum or PlasmaOrdered By: Tremayne AriasAllison on 01-16-2023 Potassium [Moles/Vol] 4.0 mmol/L 3.5-5.1 [facility] Serum or plasma anion gap de terminationOrdered By: Tremayne Allison on 01-16-2023 Anion gap [Moles/Vol] 17.2 mmol/L 6.0-15.0 [facility] Sodium [Moles/volume] in Ser um or PlasmaOrdered By: Tremayne Allison on 01-16-2023 Sodium [Moles/Vol] 137 mmol/L 136-145 [facility] Urea nitrogen [Mass/volume] in Serum or PlasmaOrdered By: Tremayne Allison on 01-16-2023 Urea nitrogen [Mass/Vol] 55 mg/dL 7-25 [facility] Comment on above: Delta: 103 on Calcium [Mass/volume] in Ser um or PlasmaOrdered By: Tremayne Allison on 01-15-2023 Calcium [Mass/Vol] 7.9 mg/dL 8.6-10.3 [facility] Carbon dioxide, total [Moles /volume] in Serum or PlasmaOrdered By: Tremayne Allison on 01-15-2023 CO2 [Moles/Vol] 25.2 mmol/L 21.0-31.0 [facility] Chloride [Moles/volume] in S martin or PlasmaOrdered By: Tremayne Allison on 01-15-2023 Chloride [Moles/Vol] 98 mmol/L 98-107 [facility] Creatinine [Mass/volume] in Serum or PlasmaOrdered By: Tremayne Allison on 01-15-2023 Creatinine [Mass/Vol] 5.08 mg/dL 0.60-1.20 [facility] Comment on above: Delta: 6.63 on 01/14 Glucose [Mass/volume] in Ser um or PlasmaOrdered By: Tremayne Allison on 01-15-2023 Glucose [Mass/Vol] 92 mg/dL 70-100 [facility] Comment on above: ADA recommended refe rence rangeRandom Glucose Reference Range is dependent on time and content of last meal. Glucose of more than 200 mg/dL in a nonstressed, ambulatory subject supports the diagnosis of Diabetes Mellitus. No Panel InformationOrdered By: Tremayne Allison on 01-15-2023 Estimated GFR (CKD-EPI) 9.059 mL/Min [facility] Creatinine Clearance (Chem 8.25 [facility] Potassium [Moles/volume] in Serum or PlasmaOrdered By: Tremayne [place] on 01-15-2023 Potassium [Moles/Vol] 3.8 mmol/L 3.5-5.1 [facility] Serum or plasma anion gap de terminationOrdered By: Tremayne [place] on 01-15-2023 Anion gap [Moles/Vol] 18.6 mmol/L 6.0-15.0 [facility] Sodium [Moles/volume] in Ser um or PlasmaOrdered By: Tremayne [place] on 01-15-2023 Sodium [Moles/Vol] 138 mmol/L 136-145 [facility] Urea nitrogen [Mass/volume] in Serum or PlasmaOrdered By: Tremayne [place] on 01-15-2023 Urea nitrogen [Mass/Vol] 103 mg/dL 7-25 [facility] Comment on above: Delta: 174 on 30 Basophils Auto (Bld) [#/Vol] Ordered By: Tremayne [place] on 01-14-2023 Basophils (Bld) [#/Vol] 0.1 10*3/uL 0.0-0.2 [facility] Basophils/100 WBC Auto (Bld) Ordered By: [facility] on 01-14-2023 Basophils/100 WBC (Bld) 0.9 % . F [facility] Eosinophils Auto (Bld) [#/Vo l]Ordered By: [facility] on 01-14-2023 Eosinophils (Bld) [#/Vol] 0.2 10*3/uL 0.0-0.45 [facility] Eosinophils/100 WBC Auto (Bl d)Ordered By: [facility] on 01-14-2023 Eosinophils/100 WBC (Bld) 3.1 % . [facility] Erythrocyte distribution wid th Auto (RBC) [Ratio]Ordered By: Tremayne [place] on 01-14-2023 Erythrocyte distribution width (RBC) [Ratio] 12.9 % 11.9-15.3 [facility] Hematocrit Auto (Bld) [Volum e fraction]Ordered By: Tremayne [place] on 01-14-2023 Hematocrit (Bld) [Volume fraction] 33.1 % 34.0-46.4 [facility] Hemoglobin [Mass/volume] in BloodOrdered By: Tremayne Allison on 01-14-2023 Hemoglobin (Bld) [Mass/Vol] 11.4 g/dL 11.8-15.4 [facility] Hepatitis B virus surface Ag [Presence] in Serum or Plasma by ImmunoassayOrdered By: Tavo Bundy on 01-14-2023 HBV surface Ag IA Ql Negative Negative [facility] Hepatitis C virus IgG Ab [Pr esence] in Serum or Plasma by ImmunoassayOrdered By: Tavo Bundy on 01-14-2023 HCV IgG IA Ql Non-Reactive Non Reactive [facility] Hepatitis C virus RNA [Units /volume] (viral load) in Serum or Plasma by LEANNE with probOrdered By: Tavo Bundy on 01-14-2023 HCV RNA LEANNE+probe Qn N/A [facility] Hepatitis C virus RNA [log u nits/volume] (viral load) in Serum or Plasma by LEANNE withOrdered By: Tavo Bundy on 01-14-2023 HCV RNA LEANNE+probe [Log units/Vol] N/A [facility] Leukocytes [#/volume] correc doreen for nucleated erythrocytes in Blood by Automated counOrdered By: Tremayne Allison on 01-14-2023 WBC corrected for nucl RBC Auto (Bld) [#/Vol] 5.6 10*3/uL 3.8-11.6 [facility] Lymphocytes Auto (Bld) [#/Vo l]Ordered By: Tremayne Allison on 01-14-2023 Lymphocytes (Bld) [#/Vol] 1.0 10*3/uL 1.00-4.8 [facility] Lymphocytes/100 WBC Auto (Bl d)Ordered By: Tremayne Allison on 01-14-2023 Lymphocytes/100 WBC (Bld) 17.4 % . [facility] MCH Auto (RBC) [Entitic mass ]Ordered By: Tremayne Allison on 01-14-2023 MCH (RBC) [Entitic mass] 30.8 pg 24.7-34.3 [facility] MCHC Auto (RBC) [Mass/Vol]Or dered By: Tremayne Allison on 01-14-2023 MCHC (RBC) [Mass/Vol] 34.6 g/dL 32.0-35.0 [facility] MCV Auto (RBC) [Entitic vol] Ordered By: Tremayne Allison on 01-14-2023 MCV (RBC) [Entitic vol] 89.0 fL 80-100 [facility] Magnesium [Mass/volume] in S martin or PlasmaOrdered By: Tremayne Allison on 01-14-2023 Magnesium [Mass/Vol] 1.9 mg/dL 1.9-2.7 [facility] Monocytes Auto (Bld) [#/Vol] Ordered By: Tremayne AriasAllison on 01-14-2023 Monocytes (Bld) [#/Vol] 0.5 10*3/uL 0.0-0.8 [facility] Monocytes/100 WBC Auto (Bld) Ordered By: Tremayne AriasAllison on 01-14-2023 Monocytes/100 WBC (Bld) 8.2 % . F [facility] Neutrophils Auto (Bld) [#/Vo l]Ordered By: Tremayne AriasAllison on 01-14-2023 Neutrophils (Bld) [#/Vol] 4.0 10*3/uL 1.8-7.7 [facility] Neutrophils/100 WBC Auto (Bl d)Ordered By: Tremayne Allison on 01-14-2023 Neutrophils/100 WBC (Bld) 70.4 % . [facility] No Panel InformationOrdered By: Tavo Bundy on 01-14-2023 Hepatitis A IgM Antibody Negative Negative [facility] Hepatitis B Core IgM Antibody Negative Negative [facility] Hepatitis B Core Total Antibody Negative Negative [facility] Comment on above: Performed at: - [address] [id number] Director: Jairon Swann PhD, Phone: [phone] Hepatitis C Interpretation See comment . [facility] Comment on above: Not infected with HC V unless early or acute infection issuspected (which may be delayed in an immunocompromisedindividual), or other evidence exists to indicate HCVinfection. Nucleated erythrocytes [Pres ence] in Blood by Automated countOrdered By: Tremayne Allison on 01-14-2023 Nucleated RBC Auto Ql (Bld) 0.1 /100{WBC} 0-0.5 [facility] Platelet mean volume Auto (B ld) [Entitic vol]Ordered By: Tremayne Allison on 01-14-2023 Platelet mean volume (Bld) [Entitic vol] 8.9 fL 6.3-10.7 [facility] Platelets Auto (Bld) [#/Vol] Ordered By: Tremayne Allison on 01-14-2023 Platelets (Bld) [#/Vol] 247 10*3/uL 150-450 [facility] RBC Auto (Bld) [#/Vol]Ordere d By: Tremayne Allison on 01-14-2023 RBC (Bld) [#/Vol] 3.72 10*6/uL 3.60-5.00 [facility] Serum hepatitis B virus surf patric antibody detectionOrdered By: Tavo Bundy on 01-14-2023 HBV surface Ab Ql (S) Non-Reactive . F [facility] Comment on above: Non Reactive: Incons istent with immunity, less than 10 mIU/mL Reactive: Consistent with immunity, greater than 9.9 mIU/mL WBC Auto (Bld) [#/Vol]Ordere d By: Tremayne Allison on 01-14-2023 WBC (Bld) [#/Vol] 5.6 10*3/uL 3.8-11.6 [facility] Alanine aminotransferase [En zymatic activity/volume] in Serum or PlasmaOrdered By: PROVIDER TEMP on 01-13-2023 ALT [Catalytic activity/Vol] 12 U/L 7-52 [facility] Albumin [Mass/volume] in Ser um or Plasma by Bromocresol green (BCG) dye binding methoOrdered By: PROVIDER TEMP on 01-13-2023 Albumin BCG dye [Mass/Vol] 4.9 g/dL 3.5-5.7 [facility] Alkaline phosphatase [Enzyma tic activity/volume] in Serum or PlasmaOrdered By: PROVIDER TEMP on 01-13-2023 ALP [Catalytic activity/Vol] 100 U/L 34-104 [facility] Aspartate aminotransferase [ Enzymatic activity/volume] in Serum or PlasmaOrdered By: PROVIDER TEMP on 01-13-2023 AST [Catalytic activity/Vol] 12 U/L 13-39 [facility] Automated erythrocytes count in urine sediment (number/area)Ordered By: Roni Kaur on 01-13-2023 RBC Auto (Urine sed) [#/Area] 5-9 [HPF] 0-4 [facility] Automated leukocytes count i n urine sediment (number/area)Ordered By: Roni Kaur on 01-13-2023 WBC Auto (Urine sed) [#/Area] 50-100 [HPF] 0-4 [facility] Bilirubin Test strip Ql (U)O rdered By: Roni Kaur on 01-13-2023 Bilirubin Ql (U) Negative Negative [facility] Bilirubin.total [Mass/volume ] in Serum or PlasmaOrdered By: PROVIDER TEMP on 01-13-2023 Bilirubin [Mass/Vol] 0.4 mg/dL 0.3-1.0 [facility] Color Auto (U)Ordered By: Sarah Kaur on 01-13-2023 Color (U) Yellow Yellow [facility] Globulin Calc (S) [Mass/Vol] Ordered By: PROVIDER TEMP on 01-13-2023 Globulin (S) [Mass/Vol] 3.1 g/dL F [facility] Ketones Auto test strip (U) [Mass/Vol]Ordered By: Roni Kaur on 01-13-2023 Ketones (U) [Mass/Vol] Negative Negative [facility] - UrinalysisOrder ed By: Roni Kaur on 01-13-2023 Hyaline casts LM Ql (Urine sed) None seen [LPF] 0-8 [facility] Monocyte distribution width [Entitic volume] in Blood by AutomatedOrdered By: PROVIDER TEMP on 01-13-2023 Monocyte distribution width Auto (Bld) [Entitic vol] 14.17 % 0.00-20.00 [facility] Nitrite Test strip Ql (U)Ord ered By: Roni Kaur on 01-13-2023 Nitrite Ql (U) Negative Negative [facility] Protein Auto test strip (U) [Mass/Vol]Ordered By: Roni Kaur on 01-13-2023 Protein (U) [Mass/Vol] 100 mg/dL Negative [facility] Protein [Mass/volume] in Ser um or PlasmaOrdered By: PROVIDER TEMP on 01-13-2023 Protein [Mass/Vol] 8.0 g/dL 6.4-8.9 [facility] Serum or plasma albumin/glob ulin mass ratioOrdered By: PROVIDER TEMP on 01-13-2023 Albumin/Globulin [Mass ratio] 1.6 {ratio} [facility] Specific gravity Auto test s trip (U) [Rel density]Ordered By: Roni Kaur on 01-13-2023 Specific gravity (U) [Rel density] 1.011 1.001-1.030 [facility] Squamous epithelial cells de tection in urine sediment by light microscopyOrdered By: Roni Kaur on 01-13-2023 Epithelial cells.squamous LM Ql (Urine sed) None seen [HPF] 0-2 [facility] Urine bacteria detection by automated methodOrdered By: Roni Kaur on 01-13-2023 Bacteria Auto Ql (U) 2+ None Seen [facility] Urine clarity by refractomet ry automatedOrdered By: Roni Kaur on 01-13-2023 Clarity Refractometry automated (U) Clear Clear [facility] Urine culture routineOrdered By: Roni Kaur on 01-13-2023 Bacteria identified Cx Nom (U) Staphylococcus epidermidis [facility] Urine glucose measurement by automated test strip (mass/volume)Ordered By: Roni Kaur on 01-13-2023 Glucose Auto test strip (U) [Mass/Vol] Normal mg/dL Normal [facility] Urine hemoglobin detection b y automated test stripOrdered By: Roni Kaur on 01-13-2023 Hemoglobin Auto test strip Ql (U) 1+ Negative [facility] Urine leukocyte esterase det ection by automated test stripOrdered By: Roni Kaur on 01-13-2023 Leukocyte esterase Auto test strip Ql (U) 4+ Negative [facility] Urobilinogen Auto test strip (U) [Mass/Vol]Ordered By: Roni Kaur on 01-13-2023 Urobilinogen (U) [Mass/Vol] Normal mg/dL Normal [facility] Yeast detection in urine sed iment by light microscopyOrdered By: Roni Kaur on 01-13-2023 Yeast LM Ql (Urine sed) None seen [HPF] None Se en [facility] pH Auto test strip (U)Ordere d By: Roni Vincent on 01-13-2023 pH (U) 6.5 [pH] 5.0-9.0 [facility] Progress Noteson 01-02-2023 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 Interface Message Text EMERGENCY TRIAGE, TREAT AND TRANSPORT (ET3) DOCUMENTATION OF TELEHEALTH VISIT Date / Time: 12/31/20221999 Name: Ros Aleman : 1960 SSN: (Not on file) EMS Agency: [facility] [x] Verbal consent obtained [] [...] could represent a number of etiologies including STRATEGIC CLIENT EXECUTIVE disease or space-occupying lesion, cardiac dysrhythmia, and [...] Completed by: Bryan Olmedo MD Normal [facility] URIC ACID SERUMon 03-28-2022 Urate [Mass/Vol] 10.3 mg/dL Critically high 2.6-6.0 [facility] Comment on above: Performed By: #### U CASEY #### [facility] [address] [address] [address] Karen aGlo Vital Signs Date Time Vital Sign Value Performing Clinician Facility 02-24-2024 12:51-0500 Body height 162.56 cm [facility] 02-24-2024 12:51-0500 Body mass index (BMI) [Ratio] 20.5 kg/m2 [facility] 02-24-2024 12:51-0500 Body temperature 98.4 [degF] [facility] 02-24-2024 12:51-0500 Body weight 54.43 kg [facility] 02-24-2024 12:51-0500 Diastolic blood pressure 80 mm[Hg] [facility] 02-24-2024 12:51-0500 Heart rate 101 /min [facility] 02-24-2024 12:51-0500 Respiratory rate 18 /min [facility] 02-24-2024 12:51-0500 SaO2% (BldA) [Mass fraction] 96 % [facility] 02-24-2024 12:51-0500 Systolic blood pressure 123 mm[Hg] [facility] 08-07-2023 12:45-0400 Body height 157.48 cm DO [facility] Work Phone: [facility] 08-07-2023 12:45-0400 Body mass index (BMI) [Ratio] 21.5 kg/m2 DO [facility] Work Phone: [facility] 08-07-2023 12:45-0400 Body temperature 97.3 [degF] DO [facility] Work Phone: [facility] 08-07-2023 12:45-0400 Body weight 53.52 kg DO [facility] Work Phone: [facility] 08-07-2023 12:45-0400 Diastolic blood pressure 78 mm[Hg] DO [facility] Work Phone: [facility] 08-07-2023 12:45-0400 SaO2% (BldA) [Mass fraction] 98 % DO [facility] Work Phone: [facility] 08-07-2023 12:45-0400 Systolic blood pressure 124 mm[Hg] DO [facility] Work Phone: [facility] 07-02-2023 19:10-0400 Body height 157.48 cm DO [facility] Work Phone: [facility] 07-02-2023 19:10-0400 Body temperature 98.4 [degF] DO [facility] Work Phone: [facility] 07-02-2023 19:10-0400 Body weight 52.8 kg DO [facility] Work Phone: [facility] 07-02-2023 19:10-0400 Diastolic blood pressure 90 mm[Hg] DO [facility] Work Phone: [facility] 07-02-2023 19:10-0400 Heart rate 103 /min DO [facility] Work Phone: [facility] 07-02-2023 19:10-0400 Respiratory rate 18 /min DO [facility] Work Phone: [facility] 07-02-2023 19:10-0400 SaO2% (BldA) [Mass fraction] 98 % DO [facility] Work Phone: [facility] 07-02-2023 19:10-0400 Systolic blood pressure 143 mm[Hg] DO [facility] Work Phone: [facility] 06-24-2023 12:30-0400 Diastolic blood pressure 72 mm[Hg] DO [facility] Work Phone: [facility] 06-24-2023 12:30-0400 Heart rate 84 /min DO [facility] Work Phone: [facility] 06-24-2023 12:30-0400 Respiratory rate 12 /min DO [facility] Work Phone: [facility] 06-24-2023 12:30-0400 SaO2% (BldA) [Mass fraction] 100 % DO [facility] Work Phone: [facility] 06-24-2023 12:30-0400 Systolic blood pressure 143 mm[Hg] DO [facility] Work Phone: [facility] 06-24-2023 08:47-0400 Body height 154.94 cm DO [facility] Work Phone: [facility] 06-24-2023 08:47-0400 Body weight 52.61 kg DO [facility] Work Phone: [facility] 06-19-2023 11:53-0400 Body height 152.4 cm DO [facility] Work Phone: [facility] 06-19-2023 11:53-0400 Body weight 50.8 kg DO [facility] Work Phone: [facility] 06-19-2023 11:53-0400 Diastolic blood pressure 77 mm[Hg] DO [facility] Work Phone: [facility] 06-19-2023 11:53-0400 Heart rate 90 /min DO [facility] Work Phone: [facility] 06-19-2023 11:53-0400 Respiratory rate 18 /min DO [facility] Work Phone: [facility] 06-19-2023 11:53-0400 SaO2% (BldA) [Mass fraction] 99 % DO [facility] Work Phone: [facility] 06-19-2023 11:53-0400 Systolic blood pressure 128 mm[Hg] DO [facility] Work Phone: [facility] 06-05-2023 10:59-0400 Body height 152.4 cm DO [facility] Work Phone: [facility] 06-05-2023 10:59-0400 Body mass index (BMI) [Ratio] 22.4 kg/m2 DO [facility] Work Phone: [facility] 06-05-2023 10:59-0400 Body temperature 97.6 [degF] DO [facility] Work Phone: [facility] 06-05-2023 10:59-0400 Body weight 52.16 kg DO [facility] Work Phone: [facility] 06-05-2023 10:59-0400 Diastolic blood pressure 76 mm[Hg] DO [facility] Work Phone: [facility] 06-05-2023 10:59-0400 Heart rate 88 /min DO [facility] Work Phone: [facility] 06-05-2023 10:59-0400 Respiratory rate 16 /min DO [facility] Work Phone: [facility] 06-05-2023 10:59-0400 SaO2% (BldA) [Mass fraction] 98 % DO [facility] Work Phone: [facility] 06-05-2023 10:59-0400 Systolic blood pressure 122 mm[Hg] DO [facility] Work Phone: [facility] 05-08-2023 11:07-0400 Body height 152.4 cm DO [facility] Work Phone: [facility] 05-08-2023 11:07-0400 Body mass index (BMI) [Ratio] 22 kg/m2 DO [facility] Work Phone: [facility] 05-08-2023 11:07-0400 Body temperature 98.2 [degF] DO [facility] Work Phone: [facility] 05-08-2023 11:07-0400 Body weight 51.25 kg DO [facility] Work Phone: [facility] 05-08-2023 11:07-0400 Diastolic blood pressure 60 mm[Hg] DO [facility] Work Phone: [facility] 05-08-2023 11:07-0400 Heart rate 100 /min DO [facility] Work Phone: [facility] 05-08-2023 11:07-0400 SaO2% (BldA) [Mass fraction] 97 % DO [facility] Work Phone: [facility] 05-08-2023 11:07-0400 Systolic blood pressure 110 mm[Hg] DO [facility] Work Phone: [facility] 04-01-2023 14:15-0500 Diastolic blood pressure 66 mm[Hg] DO [facility] Work Phone: [facility] 04-01-2023 14:15-0500 Heart rate 72 /min DO [facility] Work Phone: [facility] 04-01-2023 14:15-0500 Respiratory rate 20 /min DO [facility] Work Phone: [facility] 04-01-2023 14:15-0500 SaO2% (BldA) [Mass fraction] 94 % DO [facility] Work Phone: [facility] 04-01-2023 14:15-0500 Systolic blood pressure 114 mm[Hg] DO [facility] Work Phone: [facility] 04-01-2023 13:24-0500 Inhaled oxygen flow rate 2 L/min DO [facility] Work Phone: [facility] 04-01-2023 12:23-0500 Body mass index (BMI) [Ratio] 21.7 kg/m2 DO [facility] Work Phone: [facility] 04-01-2023 11:27-0500 Body height 152.4 cm DO [facility] Work Phone: [facility] 04-01-2023 11:27-0500 Body weight 50.34 kg DO [facility] Work Phone: [facility] 04-01-2023 09:55-0500 Body temperature 97.9 [degF] DO [facility] Work Phone: [facility] 03-13-2023 11:30-0500 Body height 157.48 cm DO [facility] Work Phone: [facility] 03-13-2023 11:30-0500 Diastolic blood pressure 60 mm[Hg] DO [facility] Work Phone: [facility] 03-13-2023 11:30-0500 Systolic blood pressure 100 mm[Hg] DO [facility] Work Phone: [facility] 01-16-2023 12:00-0500 Body temperature 98.1 [degF] DO [facility] Work Phone: [facility] 01-16-2023 12:00-0500 Diastolic blood pressure 77 mm[Hg] DO [facility] Work Phone: [facility] 01-16-2023 12:00-0500 Heart rate 105 /min DO [facility] Work Phone: [facility] 01-16-2023 12:00-0500 Respiratory rate 20 /min DO [facility] Work Phone: [facility] 01-16-2023 12:00-0500 SaO2% (BldA) [Mass fraction] 97 % DO [facility] Work Phone: [facility] 01-16-2023 12:00-0500 Systolic blood pressure 109 mm[Hg] DO [facility] Work Phone: [facility] 01-16-2023 05:37-0500 Body weight 43.2 kg DO [facility] Work Phone: [facility] 01-15-2023 15:29-0500 Body temperature 98 [degF] DO [facility] Work Phone: [facility] 01-15-2023 15:29-0500 Diastolic blood pressure 72 mm[Hg] DO [facility] Work Phone: [facility] 01-15-2023 15:29-0500 Heart rate 81 /min DO [facility] Work Phone: [facility] 01-15-2023 15:29-0500 Respiratory rate 18 /min DO [facility] Work Phone: [facility] 01-15-2023 15:29-0500 SaO2% (BldA) [Mass fraction] 97 % DO [facility] Work Phone: [facility] 01-15-2023 15:29-0500 Systolic blood pressure 124 mm[Hg] DO [facility] Work Phone: [facility] 01-15-2023 05:56-0500 Body weight 46 kg DO [facility] Work Phone: [facility] 01-14-2023 13:20-0500 Inhaled oxygen flow rate 4 L/min DO [facility] Work Phone: [facility] 01-14-2023 11:42-0500 Body height 152.4 cm DO [facility] Work Phone: [facility] 12-31-2022 20:00-0500 Diastolic blood pressure 92 mm[Hg] [facility] 12-31-2022 20:00-0500 Heart rate 103 /min [facility] 12-31-2022 20:00-0500 Respiratory rate 20 /min [facility] 12-31-2022 20:00-0500 SaO2% (BldA) [Mass fraction] 96 % [facility] 12-31-2022 20:00-0500 Systolic blood pressure 145 mm[Hg] [facility] Encounters Encounter Date Encounter Type Care Provider Facility Start: 09-28-2024 End: 09-28-2024 ambulatory [facility] DO Work Phone: [facility] Work Phone: Start: 09-28-2024 End: 09-28-2024 Patient encounter procedure Lisette Albright APRN -[facility] Work Phone: Start: 09-24-2024 Non-patient / Non-visit Tavo Bundy MD -[facility] Work Phone: Start: 08-10-2024 Non-patient / Non-visit Essalexander donald MD [facility] Work Phone: Start: 07-23-2024 Non-patient / Non-visit Tavo Bundy MD -[facility] Work Phone: Start: 07-14-2024 Non-patient / Non-visit Fidel donald MD [facility] Work Phone: Start: 02-24-2024 End: 02-24-2024 ambulatory [facility] Work Phone: Start: 02-24-2024 End: 02-24-2024 Patient encounter procedure [facility] Work Phone: Start: 01-12-2024 Non-patient / Non-visit [facility] Work Phone: Start: 12-11-2023 Non-patient / Non-visit [facility] Work Phone: Start: 08-07-2023 End: 08-07-2023 ambulatory DO [facility] Work Phone: [facility] Work Phone: Start: 08-07-2023 End: 08-07-2023 Patient encounter procedure DO [facility] Work Phone: [facility] Vascular Surgery Work Phone: Start: 07-14-2023 Non-patient / Non-visit DO [facility] Work Phone: [facility] [place] Work Phone: Start: 07-02-2023 End: 07-02-2023 Emergency department patient visit DO [facility] Work Phone: [facility]-Emergency Room Work Phone: Start: 06-24-2023 Non-patient / Non-visit DO [facility] Work Phone: [facility] Vascular Surgery Work Phone: Start: 06-24-2023 End: 06-24-2023 Admission to same day surgery center DO [facility] Work Phone: [facility]-Interventional Radiology Work Phone: Start: 06-24-2023 End: 06-24-2023 ambulatory DO [facility] Work Phone: [facility] Work Phone: Start: 06-19-2023 End: 06-19-2023 ambulatory DO [facility] Work Phone: [facility] Work Phone: Start: 06-19-2023 End: 06-19-2023 Departed Referred DO [facility] Work Phone: [facility] Work Phone: Start: 06-11-2023 Non-patient / Non-visit DO [facility] Work Phone: [facility] [place] Work Phone: Start: 06-05-2023 End: 06-05-2023 ambulatory DO [facility] Work Phone: [facility] Work Phone: Start: 06-05-2023 End: 06-05-2023 Patient encounter procedure DO [facility] Work Phone: [facility] Vascular Surgery Work Phone: Start: 05-11-2023 Non-patient / Non-visit DO [facility] Work Phone: [facility] Work Phone: Start: 05-08-2023 End: 05-08-2023 ambulatory DO [facility] Work Phone: [facility] Work Phone: Start: 05-08-2023 End: 05-08-2023 Patient encounter procedure DO [facility] Work Phone: [facility] Vascular Surgery Work Phone: Start: 04-12-2023 Non-patient / Non-visit DO [facility] Work Phone: [facility] Work Phone: Start: 04-01-2023 Non-patient / Non-visit DO [facility] Work Phone: [facility] Vascular Surgery Work Phone: Start: 04-01-2023 End: 04-01-2023 Admission to same day surgery center DO [facility] Work Phone: [facility] [place] Start: 04-01-2023 End: 04-01-2023 ambulatory DO [facility] Work Phone: [facility] Work Phone: Start: 03-13-2023 End: 03-13-2023 Patient encounter procedure DO [facility] Work Phone: [facility]- Start: 03-06-2023 End: 03-06-2023 ambulatory DO [facility] Work Phone: [facility] Work Phone: Start: 03-06-2023 End: 03-06-2023 Patient encounter procedure DO [facility] Work Phone: [facility]Ultrasound [facility] [place] Work Phone: Start: 02-28-2023 End: 02-28-2023 ambulatory DO [facility] Work Phone: [facility] Work Phone: Start: 02-28-2023 End: 02-28-2023 Patient encounter procedure DO [facility] Work Phone: [facility] [place] Work Phone: Start: 02-18-2023 End: 02-18-2023 ambulatory DO [facility] Work Phone: [facility] Work Phone: Start: 02-18-2023 End: 02-18-2023 Departed Referred DO [facility] Work Phone: [facility]-Dialysis Work Phone: Start: 01-15-2023 End: 01-15-2023 ambulatory DO [facility] Work Phone: [facility] Work Phone: Start: 01-15-2023 End: 01-15-2023 Departed Referred DO [facility] Work Phone: [facility]-Dialysis Work Phone: Start: 01-13-2023 End: 01-16-2023 Evaluation and management of inpatient DO [facility] Work Phone: [facility] [place] [facility] Work Phone: Start: 01-02-2023 End: 01-15-2023 ambulatory UNKNOWN PROVIDER Facility:[facility] Start: 12-31-2022 End: 12-31-2022 ambulatory [facility] Triage, Treat and Transport Start: 12-31-2022 End: 12-31-2022 Emergency department patient visit [facility] Emergency Triage, Treat and Transport Comment on above: Arrived Start: 03-28-2022 End: 03-29-[address] DELVIS DUNCAN Facility:[facility]1 Procedures Date Procedure Procedure Detail Performing Clinician Start: 09-28-2024 Ultrasonography of arteriovenous fistula Delvis Duncan DO Work Phone: Start: 08-07-2023 Ultrasonography of arteriovenous fistula DO Delvis [facility] Work Phone: Start: 06-24-2023 IR Fistulogram/TLA Stent (Right) DO Candy Duncan Work Phone: Start: 04-01-2023 Arteriovenous fistulization DO Delvis Prasad ouse Work Phone: Start: 03-06-2023 US angiography DO [facility]vis [facility] Work Phone: Start: 02-28-2023 Ultrasonography of liver DO Delvis Epps e Work Phone: Start: 01-15-2023 Esophagogastroduodenoscopy DO [facility] use Work Phone: Start: 01-14-2023 Catheterization DO [facility]vis [facility] Work Phone: Start: 01-13-2023 CT of abdomen and pelvis without contrast DO Delvis [facility] Work Phone: Start: 01-13-2023 Urine culture DO Delvis [facility] Work Phone: Plan of Treatment Date Care Activity Detail Author Start: 09-28-2024 Ultrasonography of arteriovenous fistula US AV Fistula [facility] Start: 09-28-2024 US AV fistula [facility] Start: 08-07-2023 Ultrasonography of arteriovenous fistula US AV Fistula [facility] Start: 08-07-2023 US AV fistula [facility] Start: 06-24-2023 [facility] Start: 06-19-2023 IR Fistulogram/TLA Stent (Right) IR Fistulogram/TLA Stent (Right) [facility] Start: 06-05-2023 US AV fistula [facility] Start: 04-01-2023 [facility] Start: 04-01-2023 [facility] Start: 01-18-2023 Blood chemistry [facility] Start: 01-17-2023 Blood chemistry [facility] Start: 01-16-2023 [facility] Start: 01-16-2023 Blood chemistry [facility] Start: 01-14-2023 Referral to vascular surgeon [facility] Start: 01-13-2023 Hospital admission [facility] Start: 01-13-2023 Referral to printed circuit designer [facility] Start: 01-13-2023 Referral to logistics specialist [facility] Start: 01-13-2023 [facility] Start: 01-13-2023 Insertion of Infusion Device into Lower Vein, Percutaneous Approach Insertion of Infusion Device into Lower Vein, Percutaneous Approach [facility] Start: 01-13-2023 Performance of Urinary Filtration, Intermittent, Less than 6 Hours Per Day Performance of Urinary Filtration, Intermittent, Less than 6 Hours Per Day [facility] Start: 01-13-2023 Urine culture Urine Culture [facility] Start: 10-18-2022 Influenza vaccination Influenza Vaccine (#1) [facility] Start: 2020 RSV vaccine (optional 60+ years) [...] + acellular pertussis vaccine (product) Tdap [facility] Start: 09-15-1975 HIV screening [facility] Start: 03-17-1961 COVID-19 Vaccine (#1) COVID-19 Vaccine (#1) [facility] Start: 1960 Screening for malignant neoplasm of colon Colonoscopy [facility] Anion gap measurement [facility] Patient Education [facility] Work Phone: Patient referral [facility] Work Phone: US AV fistula [facility] Payers Date Payer Category Payer Medicare [id number] 2024 Self-pay 2022 Unknown [id number] 1960 Unknown [id number] 1960 Unknown [id number] 1959 Unknown [id number] Unknown HCAP/HFA/FAP Active [id number] Unknown [id number] [id number] Social History Date Type Detail Facility Tobacco smoking status INIS Tobacco smoking consumption unknown [facility] Start: 1960 [facility] identity Not on file [facility] Start: 01-15-2023 End: 07-02-2023 Tobacco smoking status NHIS Smoker (finding) [facility] Start: 1960 Sex Assigned At Female F [facility] Start: 02-24-2024 Sex Female (finding) [facility] Start: 07-02-2023 Tobacco smoking status INIS Smokes tobacco daily (finding) [facility] Medical Equipment Procedure Code Equipment Code Equipment Origin al Text Equipment Identifier Dates Insertion, catheter, dialysis, tunneled, with imaging guidance Double-lumen haemodialysis catheter, implantable [id number] FDA Start: 01-14-2023 Insertion, catheter, dialysis, tunneled, with imaging guidance Double-lumen haemodialysis catheter, implantable [id number] FDA Start: 01-14-2023 Goals Date Patient Goal Desired Activity /State Functional Status Date Assessment Result Facility 01-16-2023 Functional status Patient at Baseline [facility] Work Phone: 01-13-2023 Functional status Patient at Baseline [facility] Work Phone: Mental Status Date Assessment Result Facility 01-16-2023 Cognitive function Cognitive Sta tus Patient at Baseline [facility] Work Phone: 01-13-2023 Cognitive function Cognitive Sta tus Patient at Baseline [facility] Work Phone: Clinical Notes 01-02-2023 to 09-28-2024 Note Date & Type Note Facility 09-28-2024 Radiology Diagnostic study note [facility] [address] [place] [address] Ultrasound Report Signed Patient: Ros Aleman MR#: [id number] : 1960 Acct:[id number] Age/Sex: 64 / F ADM Date: 5 Loc: [facility] Room: Type: [facility] Attending Dr: Lisette Albright PRN PHYSICAL THERAPIST-C Ordering Provider: Lisette Albright APRN Date of Service: 09/28/24 US/US AV Fistula: N18.6 Copies to: Lisette Albright APRN~ Duplex examination right Amberly fistula Indication for study: Elevated venous pressures in dialysis PROCEDURE: Color-flow duplex scanning is used to interrogate the patient's rightCimino fistula. Comparison is made with prior study July 2023. On today's examination flows are similar in range between 711 100 cc/m. Overall size of the fistula is adequate at between 8 and 20 mm. The fistula is close to the skin and no obstruction is noted. US/US AV Fistula IMPRESSION: Patent right arm fistula without focal obstruction. Flows seem adequate for dialysis. Impression dictated by: Erick Spicer M.D. 09/28/2024 1:03 PM Dictation Location: [place] [address] Tech: Tierra Rivera Transcribed By: TAE 09/28/24 1303 Dictated By: Erick Spicer MD 09/28/24 1302 Signed By: 09/28/24 1303 [facility] Work Phone: 09-28-2024 Evaluation note Diagnosis Onset Date Resolution AV fistula acute September 28, 025 10:29am End-stage renal disease on hemodialysis acute September 28 10:29am [facility] Work Phone: 1(624) 408-566905-07-2024 [facility] History and physical note Author Keaton Carrasco [facility] April 01, 2023 11:39am Note Date/Time April 01, 2023 11:39am [facility] [address] [place] [address] Vascular Surgery H&P Signed Patient: Ros Aleman MR#: [id number] : 1960 Acct:[id number] Age/Sex: 62 / F Adm Date: 4 Loc: [place] Room: Type: [facility] Attending Dr: Keaton Carrasco MD Copies to: DO Keaton Edmonds MD~ Date of Service: 04/01/2023 HPI History of Present Illness HPI: Ms. Aleman is a 62 year old female who presents in consultation for creation of hemodialysis access. She has chronic kidney disease stage V. She has a tunneled dialysis catheter via the left IJ in the left anterior chest wall. Shedenies any history of pacemakers or defibrillators. She is right-handed. [facility] Medical History Menopause Problem List clean-up per request of Phys. EHR Cmte Depression Problem List clean-up per request of Phys. EHR Cmte Stroke Problem List clean-up per request of Phys. EHR Cmte Gout Problem List clean-up per request of Phys. EHR Cmte Arthritis Problem List clean-up per request of Phys. [facility] Problem List clean-up per request of Phys. EHR Cmte Surgical History No pertinent past surgical history Problem List clean-up per request of Phys. EHR Cmte Family History Father Heart disease Family/Other Family history of other condition Legacy FamHx Problem: Patients mother and 1 sister had Poly cystic kidney Mother Diabetes Sister Family history of other condition Legacy FamHx Problem: Bone cancer, poly cystic kidney disease Cancer Legacy FamHx Problem: Diagnosed with Cancer Social History Smoking Status: Current every day smoker Tobacco Type: cigarettes Substance Use Type: Marijuana Meds Medications and Allergies Allergies PATRIC Inhibitors Allergy (Verified 04/01/23 09:50) Hives Home Medications nicotine 21 mg/24 hr daily transdermal patch 1 patch transdermal DAILY 28 days #28 ea 01/16/23 [Rx] sevelamer carbonate 800 mg tablet mg 04/01/23 [History] vitamin B complex-vitamin C-folic acid 0.8 mg tablet (Nandini-Che) 1 tab PO DAILY 04/01/23 [History Confirmed 04/01/23] Exam Physical Exam Vital Signs: Temp Pulse Resp BP Pulse Ox O2 Del Method 97.9 F 84 16 113/74 99 Room Air 04/01/23 09:55 04/01/23 09:55 04/01/23 09:55 04/01/23 09:55 04/01/23 09:55 04/01/23 09:55 Const Other: On exam the patient is pleasant polite and cooperative. She states that she does have some shortness of breath which is usual for her because she is a smoker. She denies any chest pain today. She is with her sister in the room. She is following commands and awake alert and oriented x 3. Her HEENT is grossly atraumatic her voice is raspy. Her trachea is midline there is no raised JVD she does have a catheter exit her anterior chest wall left upper side. There is no defibrillator pacemaker. She has good radial pulses distallybilaterally. She is thin and appears malnourished. She has no abdominal pain and her left lower extremities are without any edema wounds sores ulcers or skinchanges. Results Labs 04/01/23 10:19 04/01/23 10:19 Labs: Laboratory Results - last 24 hr 04/01/23 04/01/23 09:55 10:19 Corrected WBC 7.5 Uncorrected WBC Count 7.5 RBC 4.24 Hgb 13.9 Hct 41.8 MCV 98.5 MCH 32.8 MCHC 33.3 RDW 15.6 H Plt Count 141 L MPV 7.6 Neut % (Auto) 65.9 Lymph % (Auto) 23.6 Union % (Auto) 7.6 Eos % (Auto) 1.8 Baso % (Auto) 1.1 Nucleat RBC Rel Count 0.0 Neut # (Auto) 4.9 Lymph # (Auto) 1.8 Union # (Auto) 0.6 Eos # (Auto) 0.1 Baso # (Auto) 0.1 Urine Opiates Screen Negative Ur Barbiturates Screen Negative Ur Phencyclidine Scrn Negative Ur Amphetamines Screen Negative U Benzodiazepines Scrn Negative Urine Cocaine Screen Negative U Marijuana (THC) Screen Positive H A&P - Vascular (1) End stage renal disease on dialysis: Plan I did see this patient in the office on March 12. I have documented the entire encounter and did an H&P at that time. Unfortunately he clinical works did not record the encounter. Therefore we are starting over. This patient is in need of long- term hemodialysis access. I explained my role in her care was to get the catheter out of her body so that she is not at risk for infection I explained to her diagnosis as well as AV fistula creation. The risks and benefits were reviewed as well as medical surgical alternatives. We also discussed potential complications and their management. She understands wished to proceed. She did acknowledge that I do plan on placing the fistula in the right upper extremity despite her right-handedness. This is because her vein mapping is much better on the right side. I do believe she is a better chance for good outcome with use of better veins she agreed to this right-sided surgery. Consent was obtained. The vein mapping was reviewed. Documented By: Keaton Carrasco MD 04/01/23 1133 Signed By: <Electronically signed by Keaton Carrasco MD> 04/01/23 1139 [facility] Work Phone: 1(565) 104-534611-16-2023 History of Present illness Narrative* Bryan Olmedo MD - 01/02/2023 9:15 AM EST Images from the original note were not included. EMERGENCY TRIAGE, TREAT AND TRANSPORT (ET3) DOCUMENTATION OF TELEHEALTH VISIT Date / Time: 12/31/20221999 Name: Ros Aleman : 1960 SSN: (Not on file) EMS Agency: [facility] [x] Verbal consent obtained [] [...] could represent a number of etiologies including STRATEGIC CLIENT EXECUTIVE disease or space-occupying lesion, cardiac dysrhythmia, and [...] by: Bryan Olmedo MD [facility]* Diagnosis Recurrent seizures (HCC)- Primary Other forms of epilepsy and recurrent seizures without mention of intractable epilepsy [facility]* Diagnosis Onset Date Resolution Status Acute renal failure acute Cannabinoid hyperemesis syndrome acute Cyclical vomiting acute End stage renal disease acut e Hypertension acute Polycystic kidney disease ac [place] UTI (urinary tract infection) acute Vomiting acute [facility] Work Phone: evaluation noteNo assessment information available [facility] Work Phone: evaluation note* Diagnosis Onset Date Resolution Status End stage renal disease on dialysis acute [facility] Work Phone: Evaluation note* Diagnosis Onset Date Resolution Status End stage renal disease on dialysis acute AV fistula acute [facility] Work Phone: Evaluation note* Diagnosis Onset Date Resolution Status End stage renal disease on dialysis acute AV fistula acute AV fistula stenosis acute [facility] Work Phone: Evaluation note* Diagnosis Onset Date Resolution Status AV fistula stenosis [facility] Work Phone: Evaluation note* Diagnosis Onset Date Resolution Status AV fistula stenosis acute AV fistula acute [facility] Work Phone: Reason for referral (narrative)No reason for referral [facility] Work [facility]: Summary Purpose Family History No Family History Records Found Relationship Condition Age at Onset Recorded Date/T fadia father Unknown Heart disease Unknown family member Family history of other condition Unknow n Not Specified Diabetes mellitus Unknown Unknown sister Family history of other condition Unknown Malignant neoplasm Unknown Relationship Condition Age at Onset Recorded Date/T fadia father Unknown Heart disease Unknown family member Family history of other condition Unknow n mother Diabetes mellitus Unknown Unknown sister Family history of other condition Unknown Malignant neoplasm Unknown Advance Directives No Advanced Directives Records Found Advance Directive Response Recorded Date/ Time Advance Directives No December 8:08pm Advance Directive Response Recorded Date/ Time Advance Directives No December 9:08pm Chief Complaint and Reason for Visit Chief Complaint Physician sent ESRD Reason for Visit Acute renal failure Cannabinoid hyperemesis syndrome Cyclical vomiting End stage renal disease Hypertension Polycystic kidney disease UTI (urinary tract infection) Vomiting Chief Complaint Physician sent ESRD transient pt Chief Complaint Physician sent ESRD transient pt abd distension Chief Complaint Physician sent ESRD transient pt abd distension z01.818 n18.4 Chief Complaint Physician sent ESRD transient pt abd distension z01.818 n18.4 Referred By [facility] ESRD ESRD Reason for Visit End stage renal dise ase on dialysis Chief Complaint transient pt abd distension z01.818 n18.4 Referred By [facility] ESRD ESRD 1 MONTH F/U RIGHT ARM AV FISTULA CREATION Reason for Visit End stage renal dise ase on dialysis Chief Complaint Referred By [facility] F[facility]u ESRD ESRD 1 MONTH F/U RIGHT ARM AV FISTULA CREATION 4 WK FOLLOW UP; GFS RIGHT ARM 10A Reason for Visit End stage renal dise ase on dialysis AV fistula Chief Complaint Referred By [facility] For Fistu ESRD ESRD 1 MONTH F/U RIGHT ARM AV FISTULA CREATION 4 WK FOLLOW UP; GFS RIGHT ARM 10A Reason for Visit End stage renal dise ase on dialysis AV fistula AV fistula stenosis Chief Complaint ESRD ESRD 1 MONTH F/U RIGHT ARM AV FISTULA CREATION 4 WK FOLLOW UP; GFS RIGHT ARM 10A ESRD ESRD Reason for Visit End stage renal dise ase on dialysis AV fistula AV fistula stenosis Chief Complaint 4 WK FOLLOW UP; GFS RIGHT ARM 10A ESRD ESRD blown fistula LONG POST TX BLEEDING; GFS 11:30A T82.898A Reason for Visit AV fistula stenosis Chief Complaint 4 WK FOLLOW UP; GFS RIGHT ARM 10A ESRD ESRD blown fistula LONG POST TX BLEEDING; GFS 11:30A T82.898A Reason for Visit AV fistula stenosis AV fistula Chief Complaint 4 WK FOLLOW UP; GFS RIGHT ARM 10A esrd ESRD ESRD blown fistula LONG POST TX BLEEDING; GFS 11:30A T82.898A Reason for Visit AV fistula stenosis AV fistula Chief Complaint Admit Date Shortness of Breath February 24, 2024 12 :38pm Chief Complaint Admit Date HAVING INCREASED VENOUS PRESSURES PER DI ALYSIS September 28, 2024 10:29am N18.6 September 28, 2024 11 :10am Reason for Visit Admit Date AV fistula September 28, 2024 10 :29am End-stage renal disease on hemodialysis September 28, 2024 10:29am Additional Source Comments INFORMATION SOURCE (unrecogn ized section and content) DATE CREATED AUTHOR 04/01/2022 [facility] DATE CREATED AUTHOR AUTHOR'S ORGANIZ ATION 02/16/2023 [facility] DATE CREATED AUTHOR AUTHOR'S ORGANIZ ATION 03/19/2024 [facility] DATE CREATED AUTHOR AUTHOR'S ORGANIZ ATION 09/29/2024 [facility] Reason for Visit (unrecogniz ed section and content) Reason Comments Seizures Care Teams (unrecognized sec tion and content) Team Status: Active Member Role Status Dates Delvis Duncan DO Primary Care Provider Active Team Status: Active Member Role Status Dates Delvis Duncan DO Primary Care Provider Active Start: December 11, 2023 Fidel Raines MD Attending Provider Active Star t: December 11, 2023 Team Status: Active Member Role Status Dates Delvis Duncan DO Primary Care Provider Active Start: January 12, 2024 Tavo Bundy MD Attending Provider Active Star t: January 12, 2024 Team Status: Inactive Member Role Status Dates Delvis Duncan DO Primary Care Provider Active Start: February 24, 2024 End: February 24, 2024 Leti Garcia APRN Attending Provider Active Start: February 24, 2024 End: February 24, 2024 Team Status: Inactive Member Role Status Dates Delvis Duncan DO Primary Care Provider Active Start: June 05, 2023 End: June 05, 2023 Keaton Carrasco MD Attending Provider Active Start: June 05, 2023 End: June 05, 2023 Team Status: Active Member Role Status Erik Delvis DO Kamran Primary Care Provider Active Start: June 11, 2023 Tavo Bundy MD Attending Provider Active Star t: June 11, 2023 Team Status: Inactive Member Role Status Erik Delvis DO Kamran Primary Care Provider Active Start: June 19, 2023 End: June 19, 2023 Keaton Carrasco MD Attending Provider Active Start: June 19, 2023 End: June 19, 2023 Team Status: Inactive Member Role Status Erik Delvis Duncan DO Primary Care Provider Active Start: June 24, 2023 End: June 24, 2023 Keaton Carrasco MD Attending Provider Active Start: June 24, 2023 End: June 24, 2023 Team Status: Active Member Role Status Erik Delvis DO Kamran Primary Care Provider Active Start: June 24, 2023 Keaton Carrasco MD Attending Prov ider, Other Provider Active Start: June 24, 2023 Team Status: Inactive Member Role Status Erik Delvis Duncan DO Primary Care Provider Active Start: July 02, 2023 End: July 02, 2023 Devin Beavers PA-C Emergency Provider Active Start: July 02, 2023 End: July 02, 2023 Team Status: Active Member Role Status Erik Delvis DO Kamran Primary Care Provider Active Start: July 14, 2023 Fidel Raines MD Attending Provider Active Star t: July 14, 2023 Team Status: Inactive Member Role Status Erik Delvis DO Kamran Primary Care Provider Active Start: August 07, 2023 End: August 07, 2023 Keaton Carrasco MD Attending Provider Active Start: August 07, 2023 End: August 07, 2023 Team Status: Active Member Role Status Erik Delvis DO Kamran Primary Care Provider Active Start: May 11, 2023 Fidel Raines MD Attending Provider Active Star t: May 11, 2023 Team Status: Active Member Role Status Erik Delvis DO Kamran Primary Care Provider Active Start: August 07, 2023 Keaton Carrasco MD Attending Provider Active Start: August 07, 2023 Team Status: Inactive Member Role Status Erik Duncan DO Primary Care Provider Active Roni Kaur MD Emergency Provider Active Tremayne Allison DO Admit Provider Active Jai Banuelos MD Attending Provider Active Keaton Carrasco MD Other Provider Active Genet Arambula MD Other Provider Active Tavo Bundy MD Other Provider Active Team Status: Inactive Member Role Status Dates Delvis Duncan DO Primary Care Provider Active Seven Smith MD Attending Provider Active Team Status: Inactive Member Role Status Dates Delvis Duncan DO Primary Care Provider Active Seven Smith MD Attending Provider, Referring Provide r Active Team Status: Active Member Role Status Dates Delvis Duncan DO Primary Care Provider Active Roni Kaur MD Emergency Provider Active Tremayne Allison DO Admit Provider Active Jai Banuelos MD Attending Provider Active Genet Arambula MD Other Provider Active Tavo Bundy MD Other Provider Active Keaton Carrasco MD Other Provider Active Team Status: Inactive Member Role Status Dates Delvis Duncan DO Primary Care Provider Active Start: January 13, 2023 End: January 16, 2023 Roni Kaur MD Emergency Provider Active Star t: [...] Tavo Bundy MD Other Provider Active Start: N 2022 End: January 16, 2023 Team Status: Inactive [...] 2023 Team Status: Inactive Member Role Status Erik Duncan DO Primary Care Provider Active Start: March 06, 2023 End: March 06, 2023 Tavo Bundy MD Attending Provider Active Star t: March 06, 2023 End: March 06, 2023 Team Status: Inactive Member Role Status Dates Keaton Carrasco MD Attending Provider Active Start: March 13, 2023 End: March 13, 2023 Team Status: Inactive Member Role Status Erik Duncan DO Primary Care Provider Active Start: April 01, 2023 End: April 01, 2023 Keaton Carrasco MD Attending Provider Active Start: April 01, 2023 End: April 01, 2023 Team Status: Active Member Role Status Erik Duncan DO Primary Care Provider Active Start: April 01, 2023 Keaton Carrasco MD Attending Prov ider, Other Provider Active Start: April 01, 2023 Team Status: Active Member Role Status Erik Duncan DO Primary Care Provider Active Start: April 12, 2023 Tavo Bundy MD Attending Provider Active Star t: April 12, 2023 Team Status: Inactive Member Role Status Erik Duncan DO Primary Care Provider Active Start: May 08, 2023 End: May 08, 2023 Keaton Carrasco MD Attending Provider Active Start: May 08, 2023 End: May 08, 2023 Team Status: Active Member Role Status Erik Duncan DO Primary Care Provider Active Start: July 14, 2024 Fidel Raines MD Attending Provider Active Star t: July 14, 2024 Team Status: Active Member Role Status Erik Duncan DO Primary Care Provider Active Start: July 23, 2024 Tavo Bundy MD Attending Provider Active Star t: July 23, 2024 Team Status: Active Member Role Status Erik Duncan DO Primary Care Provider Active Start: August 10, 2024 Fidel Raines MD Attending Provider Active Star t: August 10, 2024 Team Status: Active Member Role Status Erik Duncan DO Primary Care Provider Active Start: September 24, 2024 Tavo Bundy MD Attending Provider Active Star t: September 24, 2024 Team Status: Inactive Member Role Status Erik Duncan DO Primary Care Provider Active Start: September 28, 2024 End: September 28, 2024 MINISTERIO Johnson Attending Provider Active Start: September 28, 2024 End: September 28, 2024 Team Status: Active Member Role Status Erik Duncan DO Primary Care Provider Active Start: September 28, 2024 MINISTERIO Johnson Attending Provider Active Start: September 28, 2024 Goals (unrecognized section and content) Goals may be documented in a n alternate sectionGoals may be documented in an alternate sectionGoals may be documented in an alternate sectionGoals may be documented in an alternate sectionGoals may be documented in an alternate sectionGoals may be documented in an alternate section FOR RECORDS PERTAINING TO PATIENTS WHO ARE [...] BE BASED ON THE PRIMARY CLINICAL RECORDS. [employer] [facility]. provides no warranty or guarantee of the accuracy or completeness of information in this document.
[2024-10-08 13:52] LABS: Potassium 5.0 mmol/L (3.5-5.1)
== END 2024-10-08 13:19 | disposition home or self-care (01) ==
LOC: LAB 13:18
PROVIDERS: Visit Provider Internal Medicine Nephrology
DX: E87.5 Hyperkalemia (principal)
CPT/HCPCS: 36415; 84132